=== PATIENT | female | born 1930 | race Caucasian/White ===

== ENCOUNTER 2018-03-10 14:02 | Inpatient (IN) | payer MEDICARE, BC ==
[2018-03-10] MEDS ORDERED: ACETAMINOPHEN TAB 325 MG TAB PO STA (14:08)
[2018-03-10 14:37] LABS: Appearance,Urine Clear (Clear); Bilirubin,Urine Negative (Negative); Blood,Urine Negative (Negative); Color,Urine Yellow; Glucose,Urine (UA) 4+ (Negative); Ketones,Urine Trace (Negative); Leukocyte Esterase,Urine Negative (Negative); Nitrite,Urine Negative (Negative); PH, Urine 6.5 (5.0-8.0); Protein,Urine Trace (Negative); Specific Gravity,Urine 1.016 (1.001-1.035); Urobilinogen,Urine <2.0 mg/dL (<2.0)
[2018-03-10 14:38] LABS: Basophils % (A) 0 %; Eosinophils % (A) 0 %; HCT 33.2 % (34.0-46.0); HGB 10.7 gm/dL (11.4-16.0); Lymphocytes # (A) 0.8 k/uL (1.0-4.8); Lymphocytes % (A) 6 %; MCHC 32.3 g/dL (31.0-37.0); MCV 99.1 fL (80.0-100.0); Macrocytosis Slight; Mean Platelet Volume 7.3; Monocytes # (A) 0.8 k/uL (0-1.0); Monocytes % (A) 6 %; Neutrophils % (A) 87 %; Platelet Count 182 k/uL (150-450); RBC 3.35 m/uL (3.80-5.40); RDW 15.2 % (11.5-15.5); WBC 12.7 k/uL (3.8-10.6)
[2018-03-10 14:46] LABS: Partial Thromboplastin Time 22.7 sec (22.0-30.0); Prothrombin Time 9.6 sec (9.0-12.0)
[2018-03-10 14:56] LABS: Albumin 3.3 g/dL (3.5-5.0); Calcium 10.2 mg/dL (8.4-10.2); Potassium 5.3 mmol/L (3.5-5.1); Total Bilirubin 1.8 mg/dL (0.2-1.3); Total Protein 6.2 g/dL (6.3-8.2)
[2018-03-10] MEDS: cefTRIAXone IN SWFI 2,000 MG/20 ML SYRINGE IVP STA ×2 (14:58→18:44)
[2018-03-10] MEDS: SODIUM CHLORIDE 0.9% 500 ML IV SCH (14:59)
--- NOTE | 2018-03-10 16:08 | CT ---
EXAMINATION TYPE: CT abdomen pelvis w con DATE OF EXAM: 03/10/2018 COMPARISON: NONE HISTORY: Occasional vomiting for [address] DLP: 387 mGycm Automated exposure control for dose reduction was used. CONTRAST: CT scan of the abdomen pelvis is performed with IV Contrast, patient injected with 80 mL of Isovue 30 0. FINDINGS- LUNG BASES-subsegmental consolidation at both lung bases with small right pleural effusion.. There is a 7 mm left pulmonary nodule on image #8. LIVER/GB-there is intrahepatic biliary ductal dilation. The gallbladder is decompressed but there saloni ears to BE abnormal attenuation in the gallbladder fossa. This could be related to gallstone with acu te cholecystitis or gallbladder neoplasm would also be the differential diagnosis. Numerous gallstone s are also felt to be present. There appears to be dilation and thickening of the common bile duct to the level the pancreatic head.. PANCREAS- No gross abnormality is seen. SPLEEN- No gross abnormality is seen. ADRENALS- No gross abnormality is seen. KIDNEYS/BLADDER-severe right hydronephrosis and proximal hydroureter. No definite calcification. Ther e is soft tissue fullness in this region although this could be related to residual ovary given there is a hysterectomy, although, a mass or adenopathy would be the differential diagnosis. 2 punctate le ss than 5 mm calcifications are seen on image 33 which may been the course of the ureter and represen t ureteral obstructive calculi. Simple appearing left renal cysts incidentally noted.. BOWEL-bowel gas pattern nonspecific. There is evidence of diverticulosis of the colon.. LYMPH NODES- No greater than 1cm abdominal or pelvic lymph nodes are appreciated. OSSEOUS STRUCTURES-hypertrophic and degenerative changes of the spine are noted. There is extensive p ostsurgical change involving the left hip. This limits assessment of the pelvis secondary to artifact .. OTHER- findings suggest splenic varices. Atherosclerotic change of aorta with no evidence of aneurys m. No free fluid or free air. Small hiatal hernia noted. IMPRESSION- 1. Marked abnormal appearance of the gallbladder fossa with suspected decompressed gallbladder contai korin numerous gallstones. There does appear to be inflammation in the region of the gallbladder and t he duodenum correlate for cholecystitis versus duodenitis. Favor acute cholecystitis. Intra and extra hepatic ductal dilation noted 2. Severe right-sided hydronephrosis and proximal hydroureter. There appears to be soft tissue densit y in the pelvis where the ureter appears to taper measuring 2 cm. There also appears to be at least 2 calcifications on coronal image 33 which potentially could be within the ureter although this is obs cured by the soft tissue attenuation. Therefore, obstructive ureteral calculus is not excluded. Area of adenopathy or mass is in the differential diagnosis correlate clinically. 3. Splenic varices 4. Small right pleural effusion #5 there is a 7 mm left lower lobe pulmonary nodule.
[2018-03-10] MEDS ORDERED: MORPHINE SULFATE 2 MG/ML SYRINGE IV PRN (18:19)
[2018-03-10] MEDS ORDERED: NALOXONE 0.4 MG/ML 1 ML VIAL IV PRN (18:19)
[2018-03-10] MEDS ORDERED: ONDANSETRON 4 MG/2 ML VIAL IVP PRN (18:19)
[2018-03-10] MEDS ORDERED: ACETAMINOPHEN TAB 325 MG TAB PO PRN (18:19)
--- NOTE | 2018-03-10 18:19 | ED ---
Weakness HPI - General Chief complaint: Weakness Stated complaint: WEAKNESS Time Seen by Provider: 03/10/18 14:03 Source: patient Mode of arrival: EMS Limitations: no limitations - History of Present Illness Initial comments: 87 years O female comes in with the elevated LFTs, she has no prior history of diabetes shortness wasn't 500 few days ago she is complaining about a fever and generalized weakness and just not feeling itchy denies any headaches no neck stiffness no chest pain or shortness of breath she has some discomfort in the abdomen no frequency urgency dysuria no symptoms of TIA or CVA - Related Data Home Medications Medication Instructions Recorded Confirmed Brimonidine Tartrate [Alphagan P 1 drops BOTH EYES BID@0900,1800 03/10/18 0.2% Ophth Soln] Glimepiride [Amaryl] 1 mg PO AC-BID 03/10/18 03/10/18 Latanoprost [Xalatan 0.005%] 1 drop BOTH EYES HS@2200 03/10/18 03/10/18 Methotrexate Sodium [Methotrexate] 10 mg PO DELGADO MDD SEE COMMENTS 03/10/18 Timolol 0.5% Ophth Soln [Timoptic 1 drop BOTH EYES BID@0900,1800 03/10/18 0.5% Ophth Soln] Allergies Allergy/AdvReac Type Severity Reaction Status Date / Time No Known Allergies Allergy Verified 03/10/18 15:15 Review of Systems ROS Statement: Those systems with pertinent positive or pertinent negative responses have been documented in the HPI. ROS Other: All systems not noted in ROS Statement are negative. Past Medical History Past Medical History: Rheumatoid Arthritis (RA) History of Any Multi-Drug Resistant Organisms: None Reported Past Surgical History: Unable to Obtain Past Psychological History: No Psychological Hx Reported Past Alcohol Use History: None Reported Past Drug Use History: None Reported General Exam - General Exam Comments Initial Comments: General: The patient is awake and alert, in no distress, and does not appear acutely ill. Skin: Skin is warm and dry and no rashes or lesions are noted. Eye: Pupils are equal, round and reactive to light, extra-ocular movements are intact; there is normal conjunctiva bilaterally. Ears, nose, mouth and throat: There are moist mucous membranes and no oral lesions. Neck: The neck is supple, there is no tenderness or JVD. Cardiovascular: There is a regular rate and rhythm. No murmur, rub or gallop is appreciated. Respiratory: To auscultation bilateral, no wheezing no rhonchi no distress respiratory boyle noticed Gastrointestinal: Under in the epigastric area and right upper quadrant and left upper quadrant area positive bowel sounds no guarding no rebounds. Back: There is no tenderness to palpation in the midline. There is no obvious deformity. Musculoskeletal: Normal ROM, no tenderness, There is no pedal edema. There is no calf tenderness or swelling. No cords were appreciated. Neurological: CN II-XII intact, Cranial nerves III through XII are intact. There are no obvious motor or sensory deficits. Coordination appears grossly intact. Speech is normal. Psychiatric: Cooperative, appropriate mood & affect, normal judgment. Limitations: no limitations Course Vital Signs 03/10/18 03/10/18 03/10/18 14:04 15:05 16:03 Temperature 100.6 F H 100.7 F H Pulse Rate 68 69 72 Respiratory 16 16 16 Rate Blood Pressure 146/61 130/60 131/61 O2 Sat by Pulse 96 97 97 Oximetry 03/10/18 17:34 Temperature Pulse Rate 76 Respiratory 16 Rate Blood Pressure 130/58 O2 Sat by Pulse 96 Oximetry Plan reassessment I noticed that CT abdomen findings are consistent with acute cholecystitis also noticed right-sided severe hydronephrosis CT suspecting obstruction in the distal right ureter I noticed a week total bili is 1.8 white count 12.7 transaminases and alk phosphatase are all elevated troponin is negative urine is negative sugar is 370 EKG Findings - EKG Comments: EKG Findings:: EKG is a sinus rhythm with a ventricular rate of 67 SC interval is 142 QRS duration is 84 QT/QTc is 374/395 review of this EKG does not reveal any ST elevation or ST depression Medical Decision Making - Lab Data Result diagrams: 03/10/18 14:22 03/10/18 14:22 Lab Results 03/10/18 03/10/18 03/10/18 Range/Units 14:22 14:22 14:22 WBC 12.7 H (3.8-10.6) k/uL RBC 3.35 L (3.80-5.40) m/uL Hgb 10.7 L (11.4-16.0) gm/dL Hct 33.2 L (34.0-46.0) % MCV 99.1 (80.0-100.0) fL MCH 32.0 (25.0-35.0) pg MCHC 32.3 (31.0-37.0) g/dL RDW 15.2 (11.5-15.5) % Plt Count 182 (150-450) k/uL Neutrophils % 87 % Lymphocytes % 6 % Monocytes % 6 % Eosinophils % 0 % Basophils % 0 % Neutrophils # 11.0 H (1.3-7.7) k/uL Lymphocytes # 0.8 L (1.0-4.8) k/uL Monocytes # 0.8 (0-1.0) k/uL Eosinophils # 0.0 (0-0.7) k/uL Basophils # 0.0 (0-0.2) k/uL Macrocytosis Slight PT (9.0-12.0) sec INR (<1.2) APTT (22.0-30.0) sec Sodium 133 L (137-145) mmol/L Potassium 5.3 H (3.5-5.1) mmol/L Chloride 98 (98-107) mmol/L Carbon Dioxide 26 (22-30) mmol/L Anion Gap 9 mmol/L BUN 25 H (7-17) mg/dL Creatinine 0.90 (0.52-1.04) mg/dL Est GFR (CKD-EPI)AfAm 66 (>60 ml/min/1.73 sqM) Est GFR (CKD-EPI)NonAf 58 (>60 ml/min/1.73 sqM) Glucose 370 H (74-99) mg/dL Plasma Lactic Acid Wily 1.1 (0.7-2.0) mmol/L Calcium 10.2 (8.4-10.2) mg/dL Total Bilirubin 1.8 H (0.2-1.3) mg/dL AST 159 H (14-36) U/L ALT 236 H (9-52) U/L Alkaline Phosphatase 959 H (38-126) U/L Troponin I (0.000-0.034) ng/mL Total Protein 6.2 L (6.3-8.2) g/dL Albumin 3.3 L (3.5-5.0) g/dL Urine Color Urine Appearance (Clear) Urine pH (5.0-8.0) Ur Specific [place] (1.001-1.035) Urine Protein (Negative) Urine Glucose (UA) (Negative) Urine Ketones (Negative) Urine Blood (Negative) Urine Nitrite (Negative) Urine Bilirubin (Negative) Urine Urobilinogen (<2.0) mg/dL Ur Leukocyte Esterase (Negative) 03/10/18 03/10/18 03/10/18 Range/Units 14:22 14:22 14:22 WBC (3.8-10.6) k/uL RBC (3.80-5.40) m/uL Hgb (11.4-16.0) gm/dL Hct (34.0-46.0) % MCV (80.0-100.0) fL MCH (25.0-35.0) pg MCHC (31.0-37.0) g/dL RDW (11.5-15.5) % Plt Count (150-450) k/uL Neutrophils % % Lymphocytes % % Monocytes % % Eosinophils % % Basophils % % Neutrophils # (1.3-7.7) k/uL Lymphocytes # (1.0-4.8) k/uL Monocytes # (0-1.0) k/uL Eosinophils # (0-0.7) k/uL Basophils # (0-0.2) k/uL Macrocytosis PT 9.6 (9.0-12.0) sec INR 1.0 (<1.2) APTT 22.7 (22.0-30.0) sec Sodium (137-145) mmol/L Potassium (3.5-5.1) mmol/L Chloride (98-107) mmol/L Carbon Dioxide (22-30) mmol/L Anion Gap mmol/L BUN (7-17) mg/dL Creatinine (0.52-1.04) mg/dL Est GFR (CKD-EPI)AfAm (>60 ml/min/1.73 sqM) Est GFR (CKD-EPI)NonAf (>60 ml/min/1.73 sqM) Glucose (74-99) mg/dL Plasma Lactic Acid Wily (0.7-2.0) mmol/L Calcium (8.4-10.2) mg/dL Total Bilirubin (0.2-1.3) mg/dL AST (14-36) U/L ALT (9-52) U/L Alkaline Phosphatase (38-126) U/L Troponin I 0.018 (0.000-0.034) ng/mL Total Protein (6.3-8.2) g/dL Albumin (3.5-5.0) g/dL Urine Color Yellow Urine Appearance Clear (Clear) Urine pH 6.5 (5.0-8.0) Ur Specific [place] 1.016 (1.001-1.035) Urine Protein Trace H (Negative) Urine Glucose (UA) 4+ H (Negative) Urine Ketones Trace H (Negative) Urine Blood Negative (Negative) Urine Nitrite Negative (Negative) Urine Bilirubin Negative (Negative) Urine Urobilinogen <2.0 (<2.0) mg/dL Ur Leukocyte Esterase Negative (Negative) Disposition Clinical Impression: Hyperglycemia, Hydronephrosis, Acute cholecystitis, Duodenitis Disposition: ADMITTED IP TO THIS [facility] Condition: Good Referrals: Nigel Luna MD [Primary Care Provider] - 1-2 days
[2018-03-10] MEDS ORDERED: LEVOFLOXACIN 500MG-D5W PMX 500 MG in DEXTROSE/WATER 1 100ML.BAG IVPB STA (18:25)
[2018-03-10] MEDS ORDERED: cefTRIAXone 2,000 MG in SODIUM CHLORIDE 0.9% 100 ML IVPB STA (18:25)
[2018-03-10] MEDS ORDERED: cefTRIAXone IN SWFI 2,000 MG/20 ML SYRINGE IVP STA (18:28)
[2018-03-10] MEDS ORDERED: INSULIN REGULAR 100 UNIT/ML VIAL SQ ONE (18:30)
[2018-03-10] MEDS: SODIUM CHLORIDE 0.9% 1,000 ML IV SCH (18:39)
[2018-03-10 18:52] LABS: Glucose,Whole Blood 312 mg/dL (75-99)
--- NOTE | 2018-03-10 22:28 | HP ---
HISTORY AND PHYSICAL DATE OF ADMISSION: 03/10/2018. CHIEF COMPLAINT: Cough, elevated blood sugars. HISTORY OF PRESENT ILLNESS: This 87-year-old female is admitted to the hospital after outpatient evaluation. The patient was seen in the office yesterday for elevated blood sugar. Routine labs were sent out. The patient's LFT and alkaline phosphatase and bilirubin were elevated. I called the patient's today and the daughter told me that the during the night, the patient had vomiting. She had not eaten and her blood sugars were running high. In view of this, she was recommended to come into the hospital. The patient was seen in the ER. The patient is pretty lethargic, but denies any symptoms. She denies any abdominal pain. Her abdomen is soft. The patient had a low-grade temperature of 100.7. The rest of the vital signs were stable. Also, her blood sugars were elevated at 370 with a BUN of 25, potassium of 5.3 and a CO2 of 133. The patient has a history of rheumatoid arthritis and has had impaired fasting blood sugars and sugars controlled on diet. The patient, however, has elevated sugar for the past 2 days. PAST MEDICAL HISTORY: History of rheumatoid arthritis, osteoporosis and a previous bilateral hip ORIF. The patient has no other history of hypertension, lung disease, liver disease, kidney disease, ulcers, TB, hepatitis. No history of any rheumatic fever, myocardial infarction or CVA. PAST SURGICAL HISTORY: Significant for bilateral hip surgeries. PERSONAL HISTORY: Never smoker. Alcohol: None. ALLERGIES: None known. MEDICATIONS AT HOME: Include: 1. Eye drops, timolol 0.5% to both eyes. 2. Methotrexate 10 mg every Monday. 3. Xalatan 0.005% 1 drop both eyes. 4. Amaryl 1 mg 1 b.i.d. started 2 days ago. 5. Alphagan 0.2% 1 drop both eyes b.i.d. SOCIAL HISTORY: The patient is , lives with her daughter. FAMILY MEDICAL HISTORY: The patient's daughter does have a history of CA of the breast in remission. REVIEW OF SYSTEMS: NEURO: Denies any headaches, dizziness. No double vision, blurred vision. PSYCH: Lethargic. CARDIAC: No chest pain, angina, palpitations. RESPIRATORY: Denies shortness of breath, cough. GI: Episode of vomiting last night. No appetite. No abdominal pain. No diarrhea, constipation. : No reported symptoms. EXTREMITIES: Chronic arthritic pain. The patient has rheumatoid arthritis. The patient also a few days ago had her right knee buckled. That happens occasionally. CONSTITUTIONAL: No reported fever, chills. SKIN: No breakdown. PHYSICAL EXAMINATION: Pleasant elderly female, lethargic. Vital signs reveal a temperature of 100.7, pulse 72, respirations 16, blood pressure 131/61, pulse ox 97% on room air. HEENT: Normocephalic. Neck supple. Decreased range of motion. Conjunctivae pink. Oral cavity dry. Neck reveals no carotid bruits or thyromegaly. CHEST: Decreased air flow. CARDIAC: Distant heart sounds, S1, S2 with no gallop. Systolic murmur 2/6 left sternal border. ABDOMEN: Soft. No tenderness. The patient has a palpable liver margin which is irregular, firm. Bowel sounds are active. Extremities reveal trace edema. Neurologically, arousable. Moves both upper and lower extremities adequately. LABORATORY ASSESSMENT: White count 12.7, hemoglobin 10.7, platelets 182. Sodium 133, potassium 5.3, chloride 98, CO2 of 26, BUN 25, creatinine 0.9, glucose 370. Total bilirubin 1.8, AST 159, ALT 236, alkaline phosphatase 959. Albumin 3.3. Urine: 4+ glucose. CT scan of the abdomen suggests hepatic portal area significant scarring. Cholelithiasis and chronic cholecystitis, also possible duodenitis. Pancreas looks okay. The hepatic biliary ducts are dilated, also right kidney hydronephrotic. ASSESSMENT: 1. Hyperglycemia. 2. Acute on chronic cholecystitis. 3. Duodenitis, cannot rule out a duodenal lesion. 4. Right hydronephrosis. 5. Chronic rheumatoid arthritis. 6. Anemia of chronic disease. PLAN: The patient is admitted to the hospital. Will ask GI physicians to take a look at the patient, possibly upper endoscopy/ERCP. The patient meanwhile will be on Rocephin, pain control, hydration. Blood sugars being controlled with insulin. Subsequently, once this problem is resolved, will ask Urology to check on her right hydronephrosis. Prognosis remains guarded. MMODL / IJN: [id number] /
[2018-03-10] MEDS: INSULIN ASPART 100 UNIT/ML 1 ML 10 ML VIAL SQ SCH (22:47)
[2018-03-10] MEDS: LATANOPROST 0.005% OPHTH DROPS 2.5 ML BTL BOTH EYES SCH (22:47)
[2018-03-10 22:59] LABS: Glucose,Whole Blood 139 mg/dL (75-99)
[2018-03-10] MEDS: HEPARIN SODIUM,PORCINE 5,000 UNIT/ML 1 ML VIAL SQ SCH (23:38)
[2018-03-11 00:12] LABS: Amylase 121 U/L (30-110); Lipase 394 U/L (23-300)
[2018-03-11 07:21] LABS: Glucose,Whole Blood 86 mg/dL (75-99)
[2018-03-11] MEDS: INSULIN ASPART 100 UNIT/ML 1 ML 10 ML VIAL SQ SCH ×4 (07:28→21:33)
[2018-03-11] MEDS ORDERED: GLIMEPIRIDE 1 MG TAB PO SCH (07:30)
[2018-03-11 08:02] LABS: Anisocytosis Slight; Basophils % (A) 0 %; Eosinophils # (A) 0.2 k/uL (0-0.7); Eosinophils % (A) 1 %; HCT 32.3 % (34.0-46.0); HGB 10.1 gm/dL (11.4-16.0); Lymphocytes # (A) 1.2 k/uL (1.0-4.8); Lymphocytes % (A) 11 %; MCH 31.5 pg (25.0-35.0); MCHC 31.3 g/dL (31.0-37.0); MCV 100.4 fL (80.0-100.0); Macrocytosis Slight; Mean Platelet Volume 7.2; Monocytes # (A) 0.8 k/uL (0-1.0); Monocytes % (A) 7 %; Neutrophils # (A) 8.9 k/uL (1.3-7.7); Neutrophils % (A) 79 %; Platelet Count 198 k/uL (150-450); RBC 3.22 m/uL (3.80-5.40); RDW 16.1 % (11.5-15.5); WBC 11.2 k/uL (3.8-10.6)
[2018-03-11] MEDS: HEPARIN SODIUM,PORCINE 5,000 UNIT/ML 1 ML VIAL SQ SCH ×3 (08:02→23:03)
[2018-03-11] MEDS: TIMOLOL 0.5% OPHTH DROPS 5 ML BTL BOTH EYES SCH ×2 (08:02→18:13)
[2018-03-11] MEDS: PANTOPRAZOLE 40 MG/10 ML VIAL IV SCH (08:02)
[2018-03-11] MEDS: BRIMONIDINE TARTRATE 0.2% DROPS 5 ML BTL BOTH EYES SCH ×2 (08:02→18:13)
[2018-03-11] MEDS: SODIUM CHLORIDE 0.9% 1,000 ML IV SCH ×2 (08:03→18:12)
[2018-03-11 08:06] LABS: Albumin 2.9 g/dL (3.5-5.0); Calcium 9.3 mg/dL (8.4-10.2); Potassium 4.3 mmol/L (3.5-5.1); Total Bilirubin 1.3 mg/dL (0.2-1.3); Total Protein 5.7 g/dL (6.3-8.2)
--- NOTE | 2018-03-11 08:33 | US ---
EXAMINATION TYPE: US abdomen limited DATE OF EXAM: 03/11/2018 COMPARISON: CT 03/10/2018 CLINICAL HISTORY: Elevated liver enzymes. EXAM MEASUREMENTS: Liver Length: 12.2 cm Gallbladder Wall: 0.4 cm CBD: 0.6 cm Right Kidney: 10.4 x 5.0 x 5.0 cm Pancreas: Obscured by bowel gas, visualized portions show no abnormality Liver: Intrahepatic ductal dilation Gallbladder: Multiple probable stones visualized. Wall appears thickened Evidence for sonographic Thompson's sign: No CBD: Measuring upper limits of normal. Distal end obscured by bowel gas Right Kidney: Moderate Hydronephrosis - as seen on the 03/10/2018 CT. Difficult exam due to overlying bowel gas. Patient unable to take a deep breath in and hold IMPRESSION: CHOLELITHIASIS WITH GALLBLADDER WALL THICKENING BUT WITHOUT SONOGRAPHIC THOMPSON'S SIGN; CONSTELLATION OF FINDINGS CONSISTENT WITH CHOLECYSTITIS.
[2018-03-11] MEDS ORDERED: METHOTREXATE SODIUM 2.5 MG TAB PO SCH (09:00)
--- NOTE | 2018-03-11 11:17 | CONS ---
CONSULTATION DATE OF SERVICE: March 11, 2018. REQUESTING PHYSICIAN: Dr. Luna. REASON FOR CONSULTATION: Abdominal pain and abnormal LFTs and jaundice. HISTORY OF PRESENT ILLNESS: The patient is an 87-year-old white female who was admitted to the hospital by Dr. Luna after she was seen in the office for abnormal LFTs. She was noted to have a bilirubin that was 2.5, alkaline phosphatase in the range of 1000. She was hence admitted to the hospital for further evaluation. The patient states that she has been complaining of some vague abdominal discomfort, occasional nausea, vomiting, and blood sugars have been running somewhat high in the last few days. Following admission to the hospital, she had repeat labs which showed improvement in the bilirubin up to 1.8 and alkaline phosphatase was down to . She did have a CT of the abdomen and pelvis done that showed evidence of mild intra and extrahepatic biliary ductal dilation, contracted gallbladder with multiple gallstones and also there was some thickening in the duodenum noted. Also, she was noted to have severe right-sided hydronephrosis. She also had ultrasound of the abdomen done that showed gallstones but no evidence of CBD dilation. The patient in the meantime is doing well. She denies any new symptoms. PAST MEDICAL HISTORY: Significant for hypertension, rheumatoid arthritis, on methotrexate, osteoporosis. MEDICATIONS: At home include eyedrops, Xalatan, methotrexate, Amaryl and Alphagan. ALLERGIES: None. SOCIAL HISTORY: No smoking. No alcohol use. PAST SURGICAL HISTORY: Bilateral hip surgery. REVIEW OF SYSTEMS: Cardiopulmonary: No chest pain, shortness of breath. Genitourinary: No dysuria or hematuria. Musculoskeletal unremarkable. Skin unremarkable. Endocrine unremarkable. Psychiatric unremarkable. Neurology unremarkable. ENT vision unremarkable. Constitutional: No recent weight loss. No fever, chills, night sweats. PHYSICAL EXAMINATION: She appears comfortable. No apparent distress. Vital signs are stable. Blood pressure is 172/90, pulse rate 84, temperature 98.3. HEENT examination unremarkable. Conjunctivae pink. Sclerae anicteric. Oral cavity no lesions. Neck no jugular venous distention or lymph node enlargement. Chest was clear to auscultation. HEART: Regular rate and rhythm. ABDOMEN: Soft. Bowel sounds are positive. No organomegaly. Extremities: No pedal edema. Skin: No rashes. Neuro: She is alert and oriented x3. No focal deficits. LAB: WBC 12.7, hemoglobin 10.7, platelets are normal. PT/INR is within normal limits. T- bilirubin was 1.8. Today it is 1.3. AST 159, ALT 236, alkaline phosphatase 959, amylase 121, lipase 394. Today, amylase and lipase are normal. Bilirubin is down to 1.3. IMPRESSION: This is a lady who presents with vague abdominal symptoms and abnormal LFTs with significant elevation of alkaline phosphatase almost in the range of 1000 with elevated LFTs and some jaundice. CT showed evidence of mild intra and extrahepatic biliary ductal dilation, thickening of the duodenum and thickening of the distal common bile duct as well as contracted gallbladder with multiple gallstones and possibility of gallbladder pathology could not be excluded. At this time the etiology of elevated LFTs could be related to choledocholithiasis, but other inflammatory conditions or malignancy cannot be excluded given the clinical picture. RECOMMENDATIONS: I had a lengthy discussion with the patient and at this time we will proceed with an ERCP. She understands the risks, benefits, and complications of the procedure. Continue with current antibiotics and we will follow the patient closely during her hospital stay. Thank you for this consultation. MMODL / IJN: [id number] /
[2018-03-11 11:39] LABS: Glucose,Whole Blood 214 mg/dL (75-99)
--- NOTE | 2018-03-11 12:53 | P.GSCN ---
History of Present Illness Consult date: 03/11/18 Reason for Consult: Gallstone pancreatitis History of present illness: Patient presents to the hospital because of abnormal lab values. She was found to have elevated liver enzymes and alkaline phosphatase. CAT scan shows numerous gallstones with some inflammatory changes at the angelo hepatis. Stomach and duodenum appear somewhat abnormal in appearance. CBD was dilated per CAT scan but not on ultrasound. She denies pain. Denies nausea vomiting. Review of Systems The patient denies any acute changes in vision or hearing, no dysphagia or odynophagia, no chest pain or shortness of breath, no dysuria or hematuria, no headache, no runny nose, no rectal bleeding or melena, no unexplained weight loss Past Medical History Past Medical History: Rheumatoid Arthritis (RA) History of Any Multi-Drug Resistant Organisms: None Reported Past Surgical History: Joint Replacement Additional Past Surgical History / Comment(s): L hip Past Psychological History: No Psychological Hx Reported Smoking Status: Never smoker Past Alcohol Use History: None Reported Past Drug Use History: None Reported - Past Family History Mother Family Medical History: Diabetes Mellitus Medications and Allergies Home Medications Medication Instructions Recorded Confirmed Type Brimonidine Tartrate [Alphagan P 1 drops BOTH EYES BID@0900,1800 03/10/18 History 0.2% Ophth Soln] Glimepiride [Amaryl] 1 mg PO AC-BID 03/10/18 03/10/18 History Latanoprost [Xalatan 0.005%] 1 drop BOTH EYES HS@2200 03/10/18 03/10/18 History Methotrexate Sodium [Methotrexate] 10 mg PO DELGADO MDD SEE COMMENTS 03/10/18 History Timolol 0.5% Ophth Soln [Timoptic 1 drop BOTH EYES BID@0900,1800 03/10/18 History 0.5% Ophth Soln] Allergies Allergy/AdvReac Type Severity Reaction Status Date / Time No Known Allergies Allergy Verified 03/10/18 15:15 Surgical - Exam Vital Signs Temp Pulse Resp BP Pulse Ox 100.6 F H 68 16 146/61 96 03/10/18 14:04 03/10/18 14:04 03/10/18 14:04 03/10/18 14:04 03/10/18 14:04 Physical exam: General: Well-developed, well-nourished HEENT: Normocephalic, sclerae slightly icteric Abdomen: nondistended, some fullness right upper quadrant with mild tenderness Extremities: No edema Neuro: Alert and oriented Results - Labs 03/11/18 07:24 03/11/18 07:24 Abnormal Lab Results - Last 24 Hours (Table) 03/10/18 03/10/18 03/10/18 Range/Units 14:22 14:22 14:22 WBC 12.7 H (3.8-10.6) k/uL RBC 3.35 L (3.80-5.40) m/uL Hgb 10.7 L (11.4-16.0) gm/dL Hct 33.2 L (34.0-46.0) % MCV (80.0-100.0) fL RDW (11.5-15.5) % Neutrophils # 11.0 H (1.3-7.7) k/uL Lymphocytes # 0.8 L (1.0-4.8) k/uL Sodium 133 L (137-145) mmol/L Potassium 5.3 H (3.5-5.1) mmol/L BUN 25 H (7-17) mg/dL Glucose 370 H (74-99) mg/dL POC Glucose (mg/dL) (75-99) mg/dL Total Bilirubin 1.8 H (0.2-1.3) mg/dL AST 159 H (14-36) U/L ALT 236 H (9-52) U/L Alkaline Phosphatase 959 H (38-126) U/L Total Protein 6.2 L (6.3-8.2) g/dL Albumin 3.3 L (3.5-5.0) g/dL Amylase (30-110) U/L Lipase (23-300) U/L Urine Protein Trace H (Negative) Urine Glucose (UA) 4+ H (Negative) Urine Ketones Trace H (Negative) 03/10/18 03/10/18 03/10/18 Range/Units 14:22 18:46 22:35 WBC (3.8-10.6) k/uL RBC (3.80-5.40) m/uL Hgb (11.4-16.0) gm/dL Hct (34.0-46.0) % MCV (80.0-100.0) fL RDW (11.5-15.5) % Neutrophils # (1.3-7.7) k/uL Lymphocytes # (1.0-4.8) k/uL Sodium (137-145) mmol/L Potassium (3.5-5.1) mmol/L BUN (7-17) mg/dL Glucose (74-99) mg/dL POC Glucose (mg/dL) 312 H 139 H (75-99) mg/dL Total Bilirubin (0.2-1.3) mg/dL AST (14-36) U/L ALT (9-52) U/L Alkaline Phosphatase (38-126) U/L Total Protein (6.3-8.2) g/dL Albumin (3.5-5.0) g/dL Amylase 121 H (30-110) U/L Lipase 394 H (23-300) U/L Urine Protein (Negative) Urine Glucose (UA) (Negative) Urine Ketones (Negative) 03/11/18 03/11/18 03/11/18 Range/Units 07:24 07:24 11:31 WBC 11.2 H (3.8-10.6) k/uL RBC 3.22 L (3.80-5.40) m/uL Hgb 10.1 L (11.4-16.0) gm/dL Hct 32.3 L (34.0-46.0) % MCV 100.4 H (80.0-100.0) fL RDW 16.1 H (11.5-15.5) % Neutrophils # 8.9 H (1.3-7.7) k/uL Lymphocytes # (1.0-4.8) k/uL Sodium (137-145) mmol/L Potassium (3.5-5.1) mmol/L BUN 19 H (7-17) mg/dL Glucose (74-99) mg/dL POC Glucose (mg/dL) 214 H (75-99) mg/dL Total Bilirubin (0.2-1.3) mg/dL AST 76 H (14-36) U/L ALT 165 H (9-52) U/L Alkaline Phosphatase 775 H (38-126) U/L Total Protein 5.7 L (6.3-8.2) g/dL Albumin 2.9 L (3.5-5.0) g/dL Amylase (30-110) U/L Lipase (23-300) U/L Urine Protein (Negative) Urine Glucose (UA) (Negative) Urine Ketones (Negative) Microbiology - Last 24 Hours (Table) 03/10/18 14:22 Urine Culture - Preliminary Urine,Catheterized Diabetes panel 03/10/18 03/11/18 Range/Units 14:22 07:24 Sodium 133 L 139 (137-145) mmol/L Potassium 5.3 H 4.3 (3.5-5.1) mmol/L Chloride 98 106 (98-107) mmol/L Carbon Dioxide 26 23 (22-30) mmol/L BUN 25 H 19 H (7-17) mg/dL Creatinine 0.90 0.83 (0.52-1.04) mg/dL Glucose 370 H 81 (74-99) mg/dL Calcium 10.2 9.3 (8.4-10.2) mg/dL AST 159 H 76 H (14-36) U/L ALT 236 H 165 H (9-52) U/L Alkaline Phosphatase 959 H 775 H (38-126) U/L Total Protein 6.2 L 5.7 L (6.3-8.2) g/dL Albumin 3.3 L 2.9 L (3.5-5.0) g/dL Calcium panel 03/10/18 03/11/18 Range/Units 14:22 07:24 Calcium 10.2 9.3 (8.4-10.2) mg/dL Albumin 3.3 L 2.9 L (3.5-5.0) g/dL Pituitary panel 03/10/18 03/11/18 Range/Units 14:22 07:24 Sodium 133 L 139 (137-145) mmol/L Potassium 5.3 H 4.3 (3.5-5.1) mmol/L Chloride 98 106 (98-107) mmol/L Carbon Dioxide 26 23 (22-30) mmol/L BUN 25 H 19 H (7-17) mg/dL Creatinine 0.90 0.83 (0.52-1.04) mg/dL Glucose 370 H 81 (74-99) mg/dL Calcium 10.2 9.3 (8.4-10.2) mg/dL Adrenal panel 03/10/18 03/11/18 Range/Units 14:22 07:24 Sodium 133 L 139 (137-145) mmol/L Potassium 5.3 H 4.3 (3.5-5.1) mmol/L Chloride 98 106 (98-107) mmol/L Carbon Dioxide 26 23 (22-30) mmol/L BUN 25 H 19 H (7-17) mg/dL Creatinine 0.90 0.83 (0.52-1.04) mg/dL Glucose 370 H 81 (74-99) mg/dL Calcium 10.2 9.3 (8.4-10.2) mg/dL Total Bilirubin 1.8 H 1.3 (0.2-1.3) mg/dL AST 159 H 76 H (14-36) U/L ALT 236 H 165 H (9-52) U/L Alkaline Phosphatase 959 H 775 H (38-126) U/L Total Protein 6.2 L 5.7 L (6.3-8.2) g/dL Albumin 3.3 L 2.9 L (3.5-5.0) g/dL Assessment and Plan (1) Gallstone pancreatitis Narrative/Plan: Appreciate GI evaluation. Await EGD/ERCP. Patient is asymptomatic currently. Concern regarding atypical malignancy persists. Further recommendations will follow. Current Visit: Yes Status: Acute Code(s): K85.10 - BILIARY ACUTE PANCREATITIS WITHOUT NECROSIS OR INFECTION SNOMED Code(s): 69907104
--- NOTE | 2018-03-11 12:56 | PN ---
PROGRESS NOTE ATTENDING PHYSICIAN: Dr. Nallely Luna. CHIEF COMPLAINT: Re-evaluation. His 87-year-old female was admitted to the hospital with elevated blood sugars and an episode of vomiting. The patient had mildly elevated liver enzymes. The patient's CT scan suggested cholecystitis, possible inflammation in the duodenum. She had marginally elevated lipase and amylase and elevated liver enzymes. The patient is feeling better today. She is more alert. Blood sugars are better controlled. REVIEW OF SYSTEMS: NEURO: Denies any headaches, dizziness. PSYCH: No anxiety. CARDIAC: Denies chest pain, angina, palpitation. RESPIRATORY: Denies shortness of breath, cough. GI: No nausea, vomiting, poor appetite. No abdominal pain. No diarrhea. No bowel movement. : No symptoms of dysuria, hematuria. EXTREMITIES: No pain. CONSTITUTIONAL: No fever or chills. PHYSICAL EXAMINATION: Elderly female at present, no distress. VITAL SIGNS: Temperature 97.8, pulse 79, respirations 16, blood pressure 132/66, pulse ox 96%. HEENT: Normocephalic. NECK: No JVD. Decreased range of motion. CHEST: Clear to auscultation with some dry crackles right base. CARDIAC: Distant heart sounds S1, S2 with no gallops. ABDOMEN: Soft. Bowel sounds present. No tenderness in the epigastric area or right upper quadrant. Bowel sounds active. EXTREMITIES: Reveal no edema. No tenderness. NEUROLOGICAL: Awake, alert, oriented, well-coordinated movements, both upper lower extremities. Decreased range of motion. LABORATORY ASSESSMENT: White count improved to 11.2, hemoglobin stable at 10.1, platelets 198. Electrolytes are normal. BUN down to 19, creatinine 0.83, bilirubin normal 1.3, AST normal 76, ALT normal 165. Alkaline phosphatase is down to 775. Lipase and amylase are normal. Blood sugar normal at 80 and 61. ASSESSMENT: 1. Acute cholecystitis. 2. Cholelithiasis. 3. Rule out duodenal pathology. 4. Right hydronephrosis. 5. Diabetes mellitus with improved blood sugars. 6. Anemia of chronic disease. 7. Rheumatoid arthritis. PLAN: Continue present medical regimen. Case discussed in person with Dr Ballard from [facility] and Dr. Chan. After discussion the plan is for the patient to undergo an ERCP tomorrow. The patient may require an open cholecystectomy. They will make that decision after the ERCP is done. Family not available at the bedside and will discuss with them later. MMODL / IJN: [id number] /
[2018-03-11 17:47] LABS: Glucose,Whole Blood 208 mg/dL (75-99)
[2018-03-11] MEDS: cefTRIAXone IN SWFI 1,000 MG/10 ML SYRINGE IVP SCH (18:12)
[2018-03-11 20:44] LABS: Glucose,Whole Blood 297 mg/dL (75-99)
[2018-03-11] MEDS: LATANOPROST 0.005% OPHTH DROPS 2.5 ML BTL BOTH EYES SCH (21:33)
[2018-03-12 06:57] LABS: Glucose,Whole Blood 154 mg/dL (75-99)
[2018-03-12 07:35] LABS: Albumin 2.7 g/dL (3.5-5.0); Potassium 4.4 mmol/L (3.5-5.1); Total Protein 5.2 g/dL (6.3-8.2)
[2018-03-12] MEDS: INSULIN ASPART 100 UNIT/ML 1 ML 10 ML VIAL SQ SCH ×4 (08:00→21:45)
[2018-03-12] MEDS: TIMOLOL 0.5% OPHTH DROPS 5 ML BTL BOTH EYES SCH ×2 (08:02→16:28)
[2018-03-12] MEDS: PANTOPRAZOLE 40 MG/10 ML VIAL IV SCH (08:02)
[2018-03-12] MEDS: BRIMONIDINE TARTRATE 0.2% DROPS 5 ML BTL BOTH EYES SCH ×2 (08:02→16:28)
[2018-03-12] MEDS: SODIUM CHLORIDE 0.9% 1,000 ML IV SCH (08:04)
[2018-03-12] MEDS: HEPARIN SODIUM,PORCINE 5,000 UNIT/ML 1 ML VIAL SQ SCH ×2 (08:06→16:27)
[2018-03-12] MEDS ORDERED: INDOMETHACIN 50MG SUPPOSITORY RECTAL ONE (11:00)
[2018-03-12] MEDS ORDERED: PROPOFOL 10 MG/ML 20 ML VIAL IV ONE (11:43)
--- NOTE | 2018-03-12 12:21 | P.PCN ---
Date of Procedure: 03/12/18 Procedure(s) Performed: Brief history: Patient is a 87 year-old pleasant lady scheduled for an ERCP as part of evaluation of weight abdominal pain and elevated serum transaminases/ alkaline phosphatase for the last [address] of the abdomen showed thickening of the duodenum multiple gallstones, contracted gallbladder and thickening of the distal common bile duct. Procedure performed: Attempted ERCP/EGD with biopsy Preoperative diagnoses: Abnormal LFTs and vague abdominal pain IV sedation per anesthesia: Procedure: After informed consent was obtained from the patient and after the risks benefits and complications including bleeding perforation and pancreatitis explained in detail the patient was brought into the endoscopy unit. The patient was placed in prone position and IV conscious sedation was administered by anesthesia under continuous monitoring. The Olympus side-viewing duodenoscope was then inserted into the mouth and esophagus intubated without any difficulty. The scope was gradually advanced into the stomach and duodenum. .Along the sweep there was a duodenal stricture that was removed advance the scope into the second portion of the duodenum. At this time the side viewing scope was removed and a forward-viewing pediatric scope was passed from the mouth and esophagus intubated without any difficulty and was gently advanced into the stomach and duodenum. There was a duodenal stricture identified along the duodenal sweep and with gentle medication and was able to advance scope into the second part of the duodenum. The scope at this time was gently withdrawn. The mucosa along the duodenal stricture appeared very inflamed and edematous but no masses identified. The second part of the duodenum appeared normal. At this time the scope was removed. The therapeutic duodenoscope was then inserted in mouth and esophagus reintubated without any difficulty and was gently advanced into the stomach and duodenal bulb. Despite multiple attempts I was not able to advance the scope further. At this time biopsies were done from the inflamed duodenal stricture. The scope was then withdrawn to the stomach adequately insufflated with air and upon careful examination because of the antrum body cardia and fundus appeared normal. Scope was then withdrawn into the esophagus. There was a small hiatal hernia and distal esophageal Schatzki's ring with some oozing identified. The rest of esophagus appeared normal and the patient off procedure well. Impression: 1. Attempted ERCP but not successful as the scope could not be advanced into the second portion of the duodenum because of duodenal stricture 2.. 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 Status post biopsies Recommendations: The findings of this examination were discussed with the patient as well as a family. At this time will await the biopsy results. Start her on clear liquid diet and advance as tolerated. Will discuss with Dr. Chan and Dr. Luna
[2018-03-12 13:33] LABS: Glucose,Whole Blood 247 mg/dL (75-99)
--- NOTE | 2018-03-12 14:22 | P.PN ---
<Lauryn Garciane M - Last Filed: 03/12/18 14:13> Subjective Progress Note Date: 03/12/18 87-year-old female being seen with 2 daughters at the bedside sitting up in bed. Patient just returned from having an attempted ERCP which was not successful scope could not be advanced secondary to a duodenal stricture noted biopsies were taken. The EGD did show the duodenal stricture along the duodenal sweep with thickened mucosal folds but no masses. Patient currently is denying any abdominal discomfort when questioning is tolerating a full liquid diet Objective - Vital Signs Vital signs: Vital Signs Temp 98.2 F 03/12/18 11:36 Pulse 80 03/12/18 11:36 Resp 16 03/12/18 11:36 BP 150/68 03/12/18 11:36 Pulse Ox 94 L 03/12/18 11:36 Intake & Output 03/11/18 03/12/18 03/12/18 18:59 06:59 18:59 Intake Total 560 1420 Balance 560 1420 Weight 51.71 kg Intake: Intake, IV Titration 560 1120 Amount Sodium Chloride 0.9% 1, 560 1120 000 ml @ 70 mls/hr IV . [id number] [facility] Rx#:[id number] Oral 300 Other: Voiding Method Toilet Toilet Toilet # Voids 2 2 - Exam Physical exam 87-year-old female sitting up in bed appears in no acute distress Lungs clear adequate air movement bilaterally on room air Heart S1-S2 audible regular Abdomen soft not distended mild tenderness to the right upper quadrant no nausea no vomiting tolerating full liquids Extremities no edema - Labs CBC & Chem 7: 03/11/18 07:24 03/12/18 07:00 Labs: Abnormal Lab Results - Last 24 Hours (Table) 03/11/18 03/11/18 03/12/18 Range/Units 17:42 20:12 06:52 Chloride (98-107) mmol/L Carbon Dioxide (22-30) mmol/L Glucose (74-99) mg/dL POC Glucose (mg/dL) 208 H 297 H 154 H (75-99) mg/dL AST (14-36) U/L ALT (9-52) U/L Alkaline Phosphatase (38-126) U/L Total Protein (6.3-8.2) g/dL Albumin (3.5-5.0) g/dL 03/12/18 03/12/18 Range/Units 07:00 13:31 Chloride 108 H (98-107) mmol/L Carbon Dioxide 21 L (22-30) mmol/L Glucose 146 H (74-99) mg/dL POC Glucose (mg/dL) 247 H (75-99) mg/dL AST 45 H (14-36) U/L ALT 120 H (9-52) U/L Alkaline Phosphatase 594 H (38-126) U/L Total Protein 5.2 L (6.3-8.2) g/dL Albumin 2.7 L (3.5-5.0) g/dL Microbiology - Last 24 Hours (Table) 03/10/18 14:22 Urine Culture - Final Urine,Catheterized 03/10/18 14:22 Blood Culture - Preliminary Blood No Growth after 24 hours Assessment and Plan Assessment: Impression Gallstone pancreatitis ERCP attempted not successful secondary to scope not being able to be advanced due to a duodenal stricture done on March 12 EGD done March 12 with biopsies showed duodenal stricture along the duodenal sweep with thickening mucosal folds but no mass CT abdomen showed thickening of the duodenum multiple gallstones and thickening of the distal common bile duct Plan Advance diet as tolerated Further recommendations per Dr. Chan with an update with family on plan of care Further recommendations will follow IV fluid for hydration The above impression and plan of care have been discussed and directed by signing physician. Janice Garcia nurse practitioner acting as scribe for signing physician. <Alexys Chan - Last Filed: 03/12/18 21:36> Objective - Vital Signs Vital signs: Vital Signs Temp 97.6 F 03/12/18 14:36 Pulse 80 03/12/18 16:00 Resp 16 03/12/18 16:00 BP 157/63 03/12/18 14:36 Pulse Ox 93 L 03/12/18 14:36 Intake & Output 03/12/18 03/12/18 03/13/18 06:59 18:59 06:59 Intake Total 1420 3540 480 Balance 1420 3540 480 Intake: Intake, IV Titration 1120 420 Amount Sodium Chloride 0.9% 1, 1120 420 000 ml @ 70 mls/hr IV . [id number] [facility] Rx#:[id number] Oral 300 3120 480 Other: Voiding Method Toilet Toilet # Voids 2 3 - Labs CBC & Chem 7: 03/11/18 07:24 03/12/18 07:00 Labs: Abnormal Lab Results - Last 24 Hours (Table) 03/12/18 03/12/18 03/12/18 Range/Units 06:52 07:00 13:31 Chloride 108 H (98-107) mmol/L Carbon Dioxide 21 L (22-30) mmol/L Glucose 146 H (74-99) mg/dL POC Glucose (mg/dL) 154 H 247 H (75-99) mg/dL AST 45 H (14-36) U/L ALT 120 H (9-52) U/L Alkaline Phosphatase 594 H (38-126) U/L Total Protein 5.2 L (6.3-8.2) g/dL Albumin 2.7 L (3.5-5.0) g/dL 03/12/18 03/12/18 Range/Units 17:18 20:26 Chloride (98-107) mmol/L Carbon Dioxide (22-30) mmol/L Glucose (74-99) mg/dL POC Glucose (mg/dL) 377 H 321 H (75-99) mg/dL AST (14-36) U/L ALT (9-52) U/L Alkaline Phosphatase (38-126) U/L Total Protein (6.3-8.2) g/dL Albumin (3.5-5.0) g/dL Microbiology - Last 24 Hours (Table) 03/10/18 14:22 Blood Culture - Preliminary Blood No Growth after 48 hours 03/10/18 14:22 Urine Culture - Final Urine,Catheterized Assessment and Plan Assessment: As above. Patient doing well without complaints of pain. ERCP unfortunately was unsuccessful because of a duodenal stricture. Her enzymes are improving. The scenario was discussed with the patient and also with Dr. Luna. At this time it is reasonable to recheck labs tomorrow morning and if we see continued improvement consider discharge home with outpatient MRCP. Patient remains high surgical risk. (1) Gallstone pancreatitis Current Visit: Yes Status: Acute Code(s): K85.10 - BILIARY ACUTE PANCREATITIS WITHOUT NECROSIS OR INFECTION SNOMED Code(s): 75757085
[2018-03-12] MEDS: cefTRIAXone IN SWFI 1,000 MG/10 ML SYRINGE IVP SCH (16:28)
[2018-03-12 17:20] LABS: Glucose,Whole Blood 377 mg/dL (75-99)
--- NOTE | 2018-03-12 19:27 | PN ---
PROGRESS NOTE ATTENDING PHYSICIAN: Dr. Nallely Luna. CHIEF COMPLAINT: Re-evaluation. HISTORY OF PRESENT ILLNESS: 87-year-old female was admitted to the hospital with mild jaundice and elevated liver enzymes and alkaline phosphatase. The patient's lipase is mildly elevated. The patient is improving. Her liver enzymes are coming down to normal. Bilirubin back to normal. The patient is looking better and feeling somewhat better. The patient denies any abdominal pain. No nausea, vomiting. Her appetite is still very poor. The patient's CT scan had suggested area on the duodenum and gallbladder area significantly inflamed, dilated biliary ducts. In view of this, the patient underwent EGD and attempted ERCP. However, the patient has a significant stricture of the duodenal area and the scope could not be passed. In view of this, some duodenal biopsies were taken. The patient is also followed by the surgeon. The patient's general condition is improving. REVIEW OF SYSTEMS: Neuro: Denies any headaches or dizziness. Psych: No anxiety. Cardiac: No chest pain, angina, palpitations. Respiratory: Denies shortness of breath, cough. GI: No nausea, vomiting, abdominal pain, diarrhea. : No symptoms of dysuria or hematuria. Extremities: Denies pain. Constitutional: No fever or chills. PHYSICAL EXAMINATION: Pleasant female in no distress. Vital signs reveals temperature 97.8, pulse 79, respirations 16, blood pressure 132/66, pulse ox 96% on room air. HEENT: Normocephalic. NECK: Decreased range of motion. CHEST: Clear to auscultation with mild generalized decreased air flow. CARDIAC: Distant heart sounds, S1-S2 with no gallop. Systolic murmur 2/6 left sternal border. ABDOMEN: Soft. Bowel sounds present. EXTREMITIES: Reveal trace edema. NEUROLOGICAL: Awake, alert, oriented, well-coordinated movements of both upper extremities. Decreased range of motion all joints due to rheumatoid arthritic changes. LAB ASSESSMENT: Electrolytes reveal sodium 137, potassium 4.4, chloride 108, CO2 content 21, BUN, creatinine normal, glucose 146, bilirubin 1.0, AST down to 45, ALT down to 120, alkaline phosphatase down to 594. Albumin is 2.7. ASSESSMENT: 1. Acute cholecystitis. 2. Duodenal stricture. 3. Diabetes mellitus with elevated blood sugars. 4. Decreased nutritional status. 5. Rheumatoid arthritis. PLAN: The patient at present is stable. Continue present medical regimen. Patient's condition discussed with the patient's daughter over the phone today after Dr. Ballard had discussed with me the patient's findings at endoscopy. The patient's prognosis remains guarded. We will continue present medical regimen. The patient may require cholecystectomy which could be done subsequently after the patient's general condition improves to some degree building her nutritional status up. MMNEIDA / SALLIE: [id number] /
[2018-03-12 20:29] LABS: Glucose,Whole Blood 321 mg/dL (75-99)
[2018-03-12] MEDS: INSULIN DETEMIR 100 UNIT/ML 10 ML VIAL SQ SCH (21:45)
[2018-03-12] MEDS: LATANOPROST 0.005% OPHTH DROPS 2.5 ML BTL BOTH EYES SCH (21:47)
[2018-03-13] MEDS: HEPARIN SODIUM,PORCINE 5,000 UNIT/ML 1 ML VIAL SQ SCH ×4 (02:24→23:25)
[2018-03-13] MEDS: SODIUM CHLORIDE 0.9% 1,000 ML IV SCH ×2 (06:07→17:58)
[2018-03-13 07:12] LABS: Glucose,Whole Blood 43 mg/dL (75-99)
[2018-03-13 07:12] LABS: Glucose,Whole Blood 41 mg/dL (75-99)
[2018-03-13 07:30] LABS: Glucose,Whole Blood 50 mg/dL (75-99)
[2018-03-13 07:51] LABS: Glucose,Whole Blood 104 mg/dL (75-99)
[2018-03-13 08:06] LABS: Glucose,Whole Blood 97 mg/dL (75-99)
[2018-03-13] MEDS: INSULIN ASPART 100 UNIT/ML 1 ML 10 ML VIAL SQ SCH ×4 (08:20→21:58)
[2018-03-13] MEDS: GLIMEPIRIDE 1 MG TAB PO SCH ×2 (08:27→21:58)
[2018-03-13] MEDS: TIMOLOL 0.5% OPHTH DROPS 5 ML BTL BOTH EYES SCH ×2 (08:36→19:21)
[2018-03-13] MEDS: PANTOPRAZOLE 40 MG/10 ML VIAL IV SCH (08:36)
[2018-03-13] MEDS: BRIMONIDINE TARTRATE 0.2% DROPS 5 ML BTL BOTH EYES SCH ×2 (08:36→19:21)
[2018-03-13 09:24] LABS: Albumin 3.2 g/dL (3.5-5.0); Calcium 10.1 mg/dL (8.4-10.2); Potassium 4.3 mmol/L (3.5-5.1); Total Bilirubin 1.1 mg/dL (0.2-1.3); Total Protein 6.1 g/dL (6.3-8.2)
--- NOTE | 2018-03-13 10:24 | P.PN ---
Subjective Progress Note Date: 03/13/18 Principal diagnosis: Elevated liver enzymes gallstone pancreatitis Attempted ERCP yesterday unsuccessful secondary to duodenal stricture. biopsies obtained. Presently denies pain. Transaminases alkaline phosphatase relatively unchanged AST 64. ALT 113. AP 682. Afebrile. Objective - Vital Signs Vital signs: Vital Signs Temp 98.7 F 03/13/18 05:00 Pulse 67 03/13/18 05:00 Resp 16 03/13/18 05:00 BP 145/72 03/13/18 05:00 Pulse Ox 95 03/13/18 05:00 Intake & Output 03/12/18 03/13/18 03/13/18 18:59 06:59 18:59 Intake Total 3540 1080 Balance 3540 1080 Weight 51.71 kg Intake: Intake, IV Titration 420 Amount Sodium Chloride 0.9% 1, 420 000 ml @ 70 mls/hr IV . [id number] [facility] Rx#:[id number] Oral 3120 1080 Other: Voiding Method Toilet Toilet # Voids 3 2 - Exam General appearance: The patient is alert, oriented, in no acute distress. HET: Head is normocephalic and atraumatic. Pupils are equal and reactive. Oropharynx is clear without lesions. Neck: Supple without lymphadenopathy. Trachea midline. Heart: S1 S2. Regular rate and rhythm. Lungs: No crackles or wheezes are heard. Abdomen: Soft, nontender, nondistended with bowel sounds. No peritoneal signs. No palpable organomegaly or masses. Extremities: Normal skin color and turgor. No cyanosis, rash, ulceration, clubbing, or edema. Radial and pedal pulses are 2/4 bilaterally. Neurological: No focal deficits. Strength and sensation are grossly intact. - Labs CBC & Chem 7: 03/11/18 07:24 03/13/18 07:26 Labs: Abnormal Lab Results - Last 24 Hours (Table) 03/12/18 03/12/18 03/12/18 Range/Units 13:31 17:18 20:26 Chloride (98-107) mmol/L Carbon Dioxide (22-30) mmol/L Glucose (74-99) mg/dL POC Glucose (mg/dL) 247 H 377 H 321 H (75-99) mg/dL AST (14-36) U/L ALT (9-52) U/L Alkaline Phosphatase (38-126) U/L Total Protein (6.3-8.2) g/dL Albumin (3.5-5.0) g/dL 03/13/18 03/13/18 03/13/18 Range/Units 07:08 07:10 07:26 Chloride 110 H (98-107) mmol/L Carbon Dioxide 21 L (22-30) mmol/L Glucose 44 L* (74-99) mg/dL POC Glucose (mg/dL) 41 L 43 L (75-99) mg/dL AST 64 H (14-36) U/L ALT 113 H (9-52) U/L Alkaline Phosphatase 682 H (38-126) U/L Total Protein 6.1 L (6.3-8.2) g/dL Albumin 3.2 L (3.5-5.0) g/dL 03/13/18 03/13/18 Range/Units 07:28 07:50 Chloride (98-107) mmol/L Carbon Dioxide (22-30) mmol/L Glucose (74-99) mg/dL POC Glucose (mg/dL) 50 L 104 H (75-99) mg/dL AST (14-36) U/L ALT (9-52) U/L Alkaline Phosphatase (38-126) U/L Total Protein (6.3-8.2) g/dL Albumin (3.5-5.0) g/dL Microbiology - Last 24 Hours (Table) 03/10/18 14:22 Blood Culture - Preliminary Blood No Growth after 48 hours Assessment and Plan (1) Elevated liver enzymes Narrative/Plan: Status post unsuccessful ERCP for evaluation of biliary ductal dilatation elevated transaminases alkaline phosphatase secondary to duodenal stricture. Current Visit: Yes Status: Acute Code(s): R74.8 - ABNORMAL LEVELS OF OTHER SERUM ENZYMES SNOMED Code(s): 925241634 (2) Duodenal stricture Current Visit: Yes Status: Acute Code(s): K31.5 - OBSTRUCTION OF DUODENUM SNOMED Code(s): 14304030 (3) Cholelithiasis Current Visit: Yes Status: Acute Code(s): K80.20 - CALCULUS OF GALLBLADDER W /O CHOLECYSTITIS W/O OBSTRUCTION SNOMED Code(s): 607004397 (4) Gallstone pancreatitis Current Visit: Yes Status: Acute Code(s): K85.10 - BILIARY ACUTE PANCREATITIS WITHOUT NECROSIS OR INFECTION SNOMED Code(s): 04641369 Plan: 1. Await biopsies. Supportive measures. Light diet as tolerated. We'll continue to follow. Assessment and plan a care discussed with Dr. Ballard
[2018-03-13 12:51] LABS: Glucose,Whole Blood 332 mg/dL (75-99)
[2018-03-13 17:22] LABS: Glucose,Whole Blood 291 mg/dL (75-99)
--- NOTE | 2018-03-13 17:31 | P.PN ---
Subjective Progress Note Date: 03/13/18 Principal diagnosis: Choledocholithiasis Patient denies abdominal pain. Tolerating diet. Appetite improved. Today's liver enzymes are improving. Objective - Vital Signs Vital signs: Vital Signs Temp 97.8 F 03/13/18 14:26 Pulse 88 03/13/18 14:26 Resp 16 03/13/18 14:26 BP 147/74 03/13/18 14:26 Pulse Ox 94 L 03/13/18 14:26 Intake & Output 03/12/18 03/13/18 03/13/18 18:59 06:59 18:59 Intake Total 3540 1080 500 Balance 3540 1080 500 Weight 51.71 kg 51.71 kg Intake: Intake, IV Titration 420 Amount Sodium Chloride 0.9% 1, 420 000 ml @ 70 mls/hr IV . [id number] [facility] Rx#:[id number] Oral 3120 1080 500 Other: Voiding Method Toilet Toilet # Voids 3 2 3 - Exam Abdomen: Soft, nontender, nondistended - Labs CBC & Chem 7: 03/11/18 07:24 03/13/18 07:26 Labs: Abnormal Lab Results - Last 24 Hours (Table) 03/12/18 03/13/18 03/13/18 Range/Units 20:26 07:08 07:10 Chloride (98-107) mmol/L Carbon Dioxide (22-30) mmol/L Glucose (74-99) mg/dL POC Glucose (mg/dL) 321 H 41 L 43 L (75-99) mg/dL AST (14-36) U/L ALT (9-52) U/L Alkaline Phosphatase (38-126) U/L Total Protein (6.3-8.2) g/dL Albumin (3.5-5.0) g/dL 03/13/18 03/13/18 03/13/18 Range/Units 07:26 07:28 07:50 Chloride 110 H (98-107) mmol/L Carbon Dioxide 21 L (22-30) mmol/L Glucose 44 L* (74-99) mg/dL POC Glucose (mg/dL) 50 L 104 H (75-99) mg/dL AST 64 H (14-36) U/L ALT 113 H (9-52) U/L Alkaline Phosphatase 682 H (38-126) U/L Total Protein 6.1 L (6.3-8.2) g/dL Albumin 3.2 L (3.5-5.0) g/dL 03/13/18 03/13/18 Range/Units 12:50 17:21 Chloride (98-107) mmol/L Carbon Dioxide (22-30) mmol/L Glucose (74-99) mg/dL POC Glucose (mg/dL) 332 H 291 H (75-99) mg/dL AST (14-36) U/L ALT (9-52) U/L Alkaline Phosphatase (38-126) U/L Total Protein (6.3-8.2) g/dL Albumin (3.5-5.0) g/dL Microbiology - Last 24 Hours (Table) 03/10/18 14:22 Blood Culture - Preliminary Blood No Growth after 72 hours Assessment and Plan (1) Gallstone pancreatitis Narrative/Plan: Continue diet as tolerated. Tentative plans for discharge with outpatient ERCP. Current Visit: Yes Status: Acute Code(s): K85.10 - BILIARY ACUTE PANCREATITIS WITHOUT NECROSIS OR INFECTION SNOMED Code(s): 97077135
[2018-03-13] MEDS: cefTRIAXone IN SWFI 1,000 MG/10 ML SYRINGE IVP SCH (19:37)
[2018-03-13 20:33] LABS: Glucose,Whole Blood 243 mg/dL (75-99)
[2018-03-13] MEDS: LATANOPROST 0.005% OPHTH DROPS 2.5 ML BTL BOTH EYES SCH (21:57)
[2018-03-13] MEDS: INSULIN DETEMIR 100 UNIT/ML 10 ML VIAL SQ SCH (22:03)
--- NOTE | 2018-03-13 23:01 | PN ---
PROGRESS NOTE CHIEF COMPLAINT: Re-evaluation. HISTORY OF PRESENT ILLNESS: This is an 87-year-old female was admitted to the hospital with some obstructive jaundice. 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 The patient's hepatic function, however, has improved. The patient has also been followed by the general surgeon. The patient has evidence of cholecystitis. She also has cholelithiasis. The patient basically is asymptomatic. She denies any abdominal pain. The only symptoms that she had were some nausea, vomiting and a very poor appetite. She no further has nausea or vomiting, but appetite still remains poor. Discussed with patient possible discharge home tomorrow and then, if the patient builds up, then she could have subsequent surgery. She will have ERCP as an outpatient prior to surgery patient meanwhile is encouraged to have increased intake. REVIEW OF SYSTEMS: NEURO: Denies any headaches, dizziness. PSYCH: No anxiety. CARDIAC: Denies chest pain, angina, palpitations. RESPIRATORY: Denies shortness of breath, cough, hemoptysis. GI: No nausea, vomiting, abdominal pain, diarrhea. : No symptoms of dysuria, hematuria, urgency, frequency. EXTREMITIES: Denies any pain, edema. CONSTITUTIONAL: No fever, chills. PHYSICAL EXAMINATION: Pleasant female. Vital signs revealed temperature 98.7, pulse 67, respirations 16, blood pressure 145/72, pulse ox 95% on room air. HEENT: Normocephalic. NECK: No JVD. CHEST EXAMINATION: Clear to auscultation with mild decreased air flow at the bases. CARDIAC: Distant heart sounds S1, S2 with no gallop. Systolic murmur 2/6, left sternal border. ABDOMEN: Soft. No palpable masses. Bowel sounds normal. No organomegaly. No abdominal bruits. Extremities reveal trace edema. Neurologically awake, alert, oriented with well-coordinated movements. LABORATORY ASSESSMENT: Accu-Cheks. The patient did have a low blood sugar of 44 this morning. Electrolytes were normal. Chloride 110, CO2 content 21. BUN and creatinine are normal. AST down 64, ALT 132, alkaline phosphatase 682. Albumin 3.2. ASSESSMENT: 1. Acute cholecystitis. 2. Diabetes mellitus with hyperglycemia with significant hypoglycemia this morning from use of long-acting insulin last night. 3. Generalized debility. 4. Rheumatoid arthritis. PLAN: The patient at present is continued on IV antibiotics and seems to be improving. Potentially will be discharged home with continuation of care. Patient's prognosis remains guarded. MMSTANLEYL / JOSEN: [id number] /
[2018-03-14 03:08] LABS: Glucose,Whole Blood 198 mg/dL (75-99)
[2018-03-14 07:28] LABS: Glucose,Whole Blood 188 mg/dL (75-99)
[2018-03-14] MEDS: INSULIN ASPART 100 UNIT/ML 1 ML 10 ML VIAL SQ SCH ×4 (07:32→21:51)
[2018-03-14] MEDS: PANTOPRAZOLE 40 MG TABLET PO SCH (08:04)
[2018-03-14] MEDS: HEPARIN SODIUM,PORCINE 5,000 UNIT/ML 1 ML VIAL SQ SCH ×3 (08:04→23:28)
[2018-03-14] MEDS: BRIMONIDINE TARTRATE 0.2% DROPS 5 ML BTL BOTH EYES SCH ×2 (08:04→17:40)
[2018-03-14] MEDS: TIMOLOL 0.5% OPHTH DROPS 5 ML BTL BOTH EYES SCH ×2 (08:04→17:41)
[2018-03-14] MEDS: GLIMEPIRIDE 1 MG TAB PO SCH ×2 (08:04→21:52)
--- NOTE | 2018-03-14 08:28 | P.PN ---
Subjective Progress Note Date: 03/14/18 Principal diagnosis: Choledocholithiasis Patient denies pain. Mildly hypoxic. Having a chest x-ray performed this morning. Morning labs pending. Objective - Vital Signs Vital signs: Vital Signs Temp 99.0 F 03/14/18 06:00 Pulse 94 03/14/18 06:00 Resp 16 03/14/18 06:00 BP 164/73 03/14/18 06:00 Pulse Ox 91 L 03/14/18 06:00 Intake & Output 03/13/18 03/14/18 03/14/18 18:59 06:59 18:59 Intake Total 1940 70 Balance 1940 70 Weight 51.71 kg Intake: Intake, IV Titration 70 Amount Sodium Chloride 0.9% 1, 70 000 ml @ 70 mls/hr IV . [id number] [facility] Rx#:[id number] Oral 1939 Other: Voiding Method Toilet Toilet # Voids 3 1 1 - Exam Abdomen: Soft, nondistended nontender - Labs CBC & Chem 7: 03/11/18 07:24 03/13/18 07:26 Labs: Abnormal Lab Results - Last 24 Hours (Table) 03/13/18 03/13/18 03/13/18 Range/Units 07:26 12:50 17:21 Chloride 110 H (98-107) mmol/L Carbon Dioxide 21 L (22-30) mmol/L Glucose 44 L* (74-99) mg/dL POC Glucose (mg/dL) 332 H 291 H (75-99) mg/dL AST 64 H (14-36) U/L ALT 113 H (9-52) U/L Alkaline Phosphatase 682 H (38-126) U/L Total Protein 6.1 L (6.3-8.2) g/dL Albumin 3.2 L (3.5-5.0) g/dL 03/13/18 03/14/18 03/14/18 Range/Units 20:31 03:05 07:26 Chloride (98-107) mmol/L Carbon Dioxide (22-30) mmol/L Glucose (74-99) mg/dL POC Glucose (mg/dL) 243 H 198 H 188 H (75-99) mg/dL AST (14-36) U/L ALT (9-52) U/L Alkaline Phosphatase (38-126) U/L Total Protein (6.3-8.2) g/dL Albumin (3.5-5.0) g/dL Microbiology - Last 24 Hours (Table) 03/10/18 14:22 Blood Culture - Preliminary Blood No Growth after 72 hours Assessment and Plan (1) Gallstone pancreatitis Narrative/Plan: Will check morning labs. Outpatient MRCP planned at this time. We'll follow. Current Visit: Yes Status: Acute Code(s): K85.10 - BILIARY ACUTE PANCREATITIS WITHOUT NECROSIS OR INFECTION SNOMED Code(s): 60832297
--- NOTE | 2018-03-14 09:08 | XR ---
EXAMINATION TYPE: XR chest 1V portable DATE OF EXAM: 03/14/2018 COMPARISON: NONE HISTORY: Shortness of breath TECHNIQUE: Single frontal view of the chest is obtained. FINDINGS: There is a moderately right pleural effusion and right basilar airspace disease with sligh t rightward mediastinal rotation likely secondary to patient positioning. There is diffuse interstiti al prominence and Meseret B lines suggesting underlying decompensated congestive heart failure with in terstitial pulmonary edema. Cardiomediastinal silhouette is enlarged. Osseous structures are generall y demineralized with degenerative change. IMPRESSION: Findings favoring decompensated congestive heart failure with interstitial pulmonary jade ma and a moderate right pleural effusion as well as right basilar airspace disease.
--- NOTE | 2018-03-14 09:50 | P.PN ---
Subjective Progress Note Date: 03/14/18 Principal diagnosis: Elevated liver enzymes gallstone pancreatitis Attempted ERCP 2 days ago for evaluation of elevated liver enzymes CT reported gallstones. ERCP unsuccessful secondary to duodenal stricture. Biopsies negative for malignancy. Presently denies pain. Decreased oxygen saturations this morning. Objective - Vital Signs Vital signs: Vital Signs Temp 99.0 F 03/14/18 06:00 Pulse 94 03/14/18 08:00 Resp 16 03/14/18 08:00 BP 164/73 03/14/18 06:00 Pulse Ox 91 L 03/14/18 06:00 Intake & Output 03/13/18 03/14/18 03/14/18 18:59 06:59 18:59 Intake Total 1939 70 Balance 194 70 Weight 51.71 kg Intake: Intake, IV Titration 70 Amount Sodium Chloride 0.9% 1, 70 000 ml @ 70 mls/hr IV . [id number] [facility] Rx#:[id number] Oral 1939 Other: Voiding Method Toilet Toilet Toilet # Voids 3 1 1 - Exam General appearance: The patient is alert, oriented, in no acute distress. HET: Head is normocephalic and atraumatic. Pupils are equal and reactive. Oropharynx is clear without lesions. Neck: Supple without lymphadenopathy. Trachea midline. Heart: S1 S2. Regular rate and rhythm. Lungs: No crackles or wheezes are heard mildly diminished in bilateral bases. Abdomen: Soft, nontender, nondistended with bowel sounds. No peritoneal signs. No palpable organomegaly or masses. Extremities: Normal skin color and turgor. No cyanosis, rash, ulceration, clubbing, or edema. Radial and pedal pulses are 2/4 bilaterally. Neurological: No focal deficits. Strength and sensation are grossly intact. - Labs CBC & Chem 7: 03/11/18 07:24 03/13/18 07:26 Labs: Abnormal Lab Results - Last 24 Hours (Table) 03/13/18 03/13/18 03/13/18 Range/Units 12:50 17:21 20:31 POC Glucose (mg/dL) 332 H 291 H 243 H (75-99) mg/dL 03/14/18 03/14/18 Range/Units 03:05 07:26 POC Glucose (mg/dL) 198 H 188 H (75-99) mg/dL Microbiology - Last 24 Hours (Table) 03/10/18 14:22 Blood Culture - Preliminary Blood No Growth after 72 hours Assessment and Plan (1) Elevated liver enzymes Narrative/Plan: Status post unsuccessful ERCP for evaluation of biliary ductal dilatation elevated transaminases alkaline phosphatase secondary to duodenal stricture. Current Visit: Yes Status: Acute Code(s): R74.8 - ABNORMAL LEVELS OF OTHER SERUM ENZYMES SNOMED Code(s): 690369761 (2) Duodenal stricture Current Visit: Yes Status: Acute Code(s): K31.5 - OBSTRUCTION OF DUODENUM SNOMED Code(s): 91024174 (3) Cholelithiasis Current Visit: Yes Status: Acute Code(s): K80.20 - CALCULUS OF GALLBLADDER W /O CHOLECYSTITIS W/O OBSTRUCTION SNOMED Code(s): 014780813 (4) Gallstone pancreatitis Current Visit: Yes Status: Acute Code(s): K85.10 - BILIARY ACUTE PANCREATITIS WITHOUT NECROSIS OR INFECTION SNOMED Code(s): 59757511 Plan: 1. Outpatient MRCP prescription provided. Repeat CMP 5-7 days. Return to office in 4 weeks for reevaluation. Discharge per medicine. Assessment and plan a care discussed with Dr. Ballard
[2018-03-14] MEDS ORDERED: FUROSEMIDE 10 MG/ML 4 ML VIAL IV STA (10:11)
[2018-03-14 11:31] LABS: Glucose,Whole Blood 397 mg/dL (75-99)
[2018-03-14 14:13] LABS: Albumin 3.2 g/dL (3.5-5.0); Calcium 11.3 mg/dL (8.4-10.2); Potassium 5.1 mmol/L (3.5-5.1); Total Protein 6.2 g/dL (6.3-8.2)
[2018-03-14 17:32] LABS: Glucose,Whole Blood 194 mg/dL (75-99)
[2018-03-14] MEDS: cefTRIAXone IN SWFI 1,000 MG/10 ML SYRINGE IVP SCH (17:40)
[2018-03-14] MEDS: SODIUM CHLORIDE 0.9% 1,000 ML IV SCH ×2 (19:01→23:55)
[2018-03-14 20:17] LABS: Glucose,Whole Blood 279 mg/dL (75-99)
[2018-03-14] MEDS: INSULIN DETEMIR 100 UNIT/ML 10 ML VIAL SQ SCH (21:43)
[2018-03-14] MEDS: LATANOPROST 0.005% OPHTH DROPS 2.5 ML BTL BOTH EYES SCH (21:52)
--- NOTE | 2018-03-14 23:29 | PN ---
PROGRESS NOTE CHIEF COMPLAINT: Re-evaluation. HISTORY OF PRESENT ILLNESS: This is an 87-year-old female who was admitted to the hospital with acute cholecystitis and obstructive jaundice. This has improved. The patient today, however, was somewhat short of breath and has a cough. Chest x-ray suggests CHF changes. The patient's pulse ox was 88% on room air. She does have some pulmonary fibrosis, rheumatoid arthritis. Chest x-ray suggested right pleural effusion and congestive cardiac failure changes. BNP 3000. REVIEW OF SYSTEMS: NEURO: Denies any headaches, dizziness. PSYCH: No anxiety. CARDIAC: No chest pain, angina, palpitation. RESPIRATORY: Denies shortness of breath, cough. GI: No nausea, vomiting, abdominal pain, diarrhea. : No symptoms of dysuria or hematuria. EXTREMITIES: Denies pain. CONSTITUTIONAL: No fever or chills. PHYSICAL EXAMINATION: Pleasant female in no distress. Vital signs reveal temperature 98.7, pulse 80, respirations 16, blood pressure 145/72. Pulse ox recorded is 88% on room air. HEENT: Normocephalic. NECK: No JVD. CHEST EXAMINATION: Some decreased air flow at the right base. CARDIAC: Normal S1, S2 with no gallops. Systolic murmur 2/6, left sternal border. ABDOMEN: Soft. Bowel sounds present. Extremities reveal trace edema. Neurologically awake, alert, oriented with well-coordinated movements though restricted due to rheumatoid arthritis. LABORATORY ASSESSMENT: Potassium 5.1, sodium 134, CO2 content 21. BUN and creatinine are normal. Glucose was 356. Alkaline phosphatase is down to 615. ALT, AST are down. Bilirubin is 1.0. Albumin 3.2. BNP was 3260. ASSESSMENT: 1. Obstructive jaundice, improving. 2. Cholelithiasis. 3. Duodenal stricture. 4. Rheumatoid arthritis. 5. Shortness of breath with suggestion of congestive cardiac failure, undetermined etiology; probably diastolic dysfunction. 6. Diabetes mellitus. PLAN: The patient at present will be given Lasix. Continue present medical regimen. The patient's blood sugars were yesterday down. Today they are up. The patient may require some insulin supplement. Will give the patient some Levemir in the mornings. Patient's prognosis remains guarded. MMODL / IJN: [id number] /
[2018-03-15 07:13] LABS: Glucose,Whole Blood 211 mg/dL (75-99)
[2018-03-15] MEDS: INSULIN ASPART 100 UNIT/ML 1 ML 10 ML VIAL SQ SCH ×4 (08:04→21:15)
[2018-03-15] MEDS: PANTOPRAZOLE 40 MG TABLET PO SCH (08:05)
[2018-03-15] MEDS: HEPARIN SODIUM,PORCINE 5,000 UNIT/ML 1 ML VIAL SQ SCH ×3 (08:05→23:51)
[2018-03-15] MEDS: GLIMEPIRIDE 1 MG TAB PO SCH ×2 (08:06→21:15)
[2018-03-15] MEDS: TIMOLOL 0.5% OPHTH DROPS 5 ML BTL BOTH EYES SCH ×2 (08:06→17:55)
[2018-03-15] MEDS: BRIMONIDINE TARTRATE 0.2% DROPS 5 ML BTL BOTH EYES SCH ×2 (08:06→17:55)
[2018-03-15] MEDS: SODIUM CHLORIDE 0.9% 1,000 ML IV SCH (08:06)
[2018-03-15] MEDS: INSULIN DETEMIR 100 UNIT/ML 10 ML VIAL SQ SCH ×2 (08:54→21:15)
[2018-03-15 09:00] LABS: Anisocytosis Slight; Basophils # (A) 0.1 k/uL (0-0.2); Basophils % (A) 1 %; Eosinophils # (A) 0.2 k/uL (0-0.7); Eosinophils % (A) 2 %; HCT 33.7 % (34.0-46.0); Lymphocytes # (A) 1.2 k/uL (1.0-4.8); Lymphocytes % (A) 11 %; MCH 31.6 pg (25.0-35.0); MCHC 32.5 g/dL (31.0-37.0); Macrocytosis Slight; Mean Platelet Volume 7.3; Monocytes # (A) 0.8 k/uL (0-1.0); Monocytes % (A) 8 %; Neutrophils # (A) 8.3 k/uL (1.3-7.7); Neutrophils % (A) 77 %; Platelet Count 270 k/uL (150-450); RBC 3.47 m/uL (3.80-5.40); RDW 16.4 % (11.5-15.5); WBC 10.8 k/uL (3.8-10.6)
[2018-03-15 09:39] LABS: Albumin 3.1 g/dL (3.5-5.0); Calcium 9.8 mg/dL (8.4-10.2); Potassium 4.1 mmol/L (3.5-5.1); Total Protein 5.9 g/dL (6.3-8.2)
[2018-03-15] MEDS ORDERED: METOPROLOL TARTRATE 50 MG TAB PO STA ×2 (09:50→17:21)
[2018-03-15 11:54] LABS: Glucose,Whole Blood 325 mg/dL (75-99)
--- NOTE | 2018-03-15 12:29 | CDI ---
Last Revision, September 2017 Documentation Clarification Form Date: 03/15/2018 12:00:00 AM From: Leticia Alaniz RN, CCDS Admit Date: 03/10/2018 6:19:00 PM Patient Name: Bita Mayfield Visit Number: [id number] Discharge Date: ATTENTION: The Clinical Documentation Specialists (CDI) and [facility] Coding Staff appreciate your assistance in clarifying documentation. Please respond to the clarification below the line at the bottom and electronically sign. The CDI & [facility] Coding staff will review the response and follow-up if needed. Please note: Queries are made part of the Legal Health Record. If you have any questions, please contact the author of this message via ITS. Dr. Nigel Luna 03/14/18 CHF, probably diastolic dysfunction is documented in your progress note. History/Risk Factors: Rheumatoid arthritis, Diabetes mellitus, Gallstone pancreatitis, Acute cholecystitis, Clinical Indicators: 03/14/18 patient noted shortness of breath and decreased oxygen saturations. A chest x-ray was obtained and suggests CHF changes. The patient's pulse ox 88 % on room air. Per your progress notes. VS/Pulse OX: 145/72 80 16 88 % RA BNP: 3000 Treatment: Lasix IV Monitor Labs Monitor O2 Sat's In your professional opinion, can you please further clarify the acuity of CHF if known? Acute diastolic congestive heart failure Chronic diastolic congestive heart failure Other, please specify Unable to determine Please continue to document in your progress notes and discharge summary in order to capture severity of illness and risk of mortality. Include clinical findings that support your diagnosis. MTDD
[2018-03-15 17:17] LABS: Glucose,Whole Blood 237 mg/dL (75-99)
--- NOTE | 2018-03-15 17:33 | P.PN ---
Subjective Progress Note Date: 03/15/18 Principal diagnosis: Choledocholithiasis Patient once again denies pain. Alkaline phosphatase improved. White blood cell count normal. Had an episode of tachycardia and is being observed overnight. Objective - Vital Signs Vital signs: Vital Signs Temp 98.0 F 03/15/18 16:48 Pulse 94 03/15/18 16:48 Resp 16 03/15/18 16:48 BP 104/63 03/15/18 16:48 Pulse Ox 95 03/15/18 16:48 Intake & Output 03/14/18 03/15/18 03/15/18 18:59 06:59 18:59 Intake Total 140 Balance 140 Intake: Intake, IV Titration 140 Amount Sodium Chloride 0.9% 1, 140 000 ml @ 70 mls/hr IV . [id number] [facility] Rx#:[id number] Other: Voiding Method Toilet Toilet Toilet # Voids 6 2 4 - Exam Abdomen: Soft, nontender, nondistended - Labs CBC & Chem 7: 03/15/18 08:34 03/15/18 08:34 Labs: Abnormal Lab Results - Last 24 Hours (Table) 03/14/18 03/14/18 03/15/18 Range/Units 17:16 20:15 07:11 WBC (3.8-10.6) k/uL RBC (3.80-5.40) m/uL Hgb (11.4-16.0) gm/dL Hct (34.0-46.0) % RDW (11.5-15.5) % Neutrophils # (1.3-7.7) k/uL Glucose (74-99) mg/dL POC Glucose (mg/dL) 194 H 279 H 211 H (75-99) mg/dL ALT (9-52) U/L Alkaline Phosphatase (38-126) U/L Total Protein (6.3-8.2) g/dL Albumin (3.5-5.0) g/dL 03/15/18 03/15/18 03/15/18 Range/Units 08:34 08:34 11:53 WBC 10.8 H (3.8-10.6) k/uL RBC 3.47 L (3.80-5.40) m/uL Hgb 11.0 L (11.4-16.0) gm/dL Hct 33.7 L (34.0-46.0) % RDW 16.4 H (11.5-15.5) % Neutrophils # 8.3 H (1.3-7.7) k/uL Glucose 253 H (74-99) mg/dL POC Glucose (mg/dL) 325 H (75-99) mg/dL ALT 72 H (9-52) U/L Alkaline Phosphatase 484 H (38-126) U/L Total Protein 5.9 L (6.3-8.2) g/dL Albumin 3.1 L (3.5-5.0) g/dL 03/15/18 Range/Units 17:16 WBC (3.8-10.6) k/uL RBC (3.80-5.40) m/uL Hgb (11.4-16.0) gm/dL Hct (34.0-46.0) % RDW (11.5-15.5) % Neutrophils # (1.3-7.7) k/uL Glucose (74-99) mg/dL POC Glucose (mg/dL) 237 H (75-99) mg/dL ALT (9-52) U/L Alkaline Phosphatase (38-126) U/L Total Protein (6.3-8.2) g/dL Albumin (3.5-5.0) g/dL Microbiology - Last 24 Hours (Table) 03/10/18 14:22 Blood Culture - Preliminary Blood No Growth after 120 hours Assessment and Plan (1) Gallstone pancreatitis Narrative/Plan: Continue to follow enzymes post discharge. Plan MRCP post discharge. Follow- up with me once MRCP obtained to discuss value of cholecystectomy. We'll sign off. Please contact if needed. Current Visit: Yes Status: Acute Code(s): K85.10 - BILIARY ACUTE PANCREATITIS WITHOUT NECROSIS OR INFECTION SNOMED Code(s): 08387466
[2018-03-15] MEDS: cefTRIAXone IN SWFI 1,000 MG/10 ML SYRINGE IVP SCH (17:52)
[2018-03-15 20:18] LABS: Glucose,Whole Blood 278 mg/dL (75-99)
[2018-03-15] MEDS: LATANOPROST 0.005% OPHTH DROPS 2.5 ML BTL BOTH EYES SCH (21:15)
[2018-03-15] MEDS ORDERED: INSULIN DETEMIR 100 UNIT/ML 10 ML VIAL SQ SCH (23:04)
[2018-03-16] MEDS: SODIUM CHLORIDE 0.9% 1,000 ML IV SCH (04:31)
--- NOTE | 2018-03-16 06:37 | PN ---
PROGRESS NOTE CHIEF COMPLAINT: Re-evaluation. HISTORY OF PRESENT ILLNESS: This is an 87-year-old female who was admitted to the hospital with acute cholecystitis and obstructive jaundice. The patient's symptoms were low-grade fever and decreased intake. The patient denies any abdominal pain. The patient's CAT scan has shown also evidence of right hydronephrosis. The patient has been doing well. She is starting to eat. However, today at the time of my examination this morning the patient was tachycardia, rate of 140, regular. She had no symptoms with it. No palpitations. No shortness of breath. No chest pain. REVIEW OF SYSTEMS: NEURO: Denies any headaches or dizziness. PSYCH: No anxiety. CARDIAC: No chest pain, angina, palpitations. RESPIRATORY: Denies shortness of breath, cough. GI: No nausea, vomiting, abdominal pain, diarrhea. : Denies symptoms of dysuria, hematuria. EXTREMITIES: No pain. CONSTITUTIONAL: No fever or chills. PHYSICAL EXAMINATION: A pleasant female at present in no distress. Vital signs revealed temperature of 99, pulse 94, respirations 16, blood pressure 164/70, pulse ox 91% on room air. HEENT: Normocephalic. Decreased range of motion in the neck. CHEST EXAMINATION: Clear to auscultation. CARDIAC: Normal S1, S2. No gallops. Regular rhythm. Tachycardic. ABDOMEN: Soft. Bowel sounds present. EXTREMITIES: Trace edema. NEUROLOGICAL: Awake, alert, oriented, generalized stiffness. Patient has deformities relating to rheumatoid arthritis. LABORATORY ASSESSMENT: White count 10.8, hemoglobin 11. Glucose 253. AST normal 35, bilirubin normal, ALT down to 72, alkaline phosphatase down to 484. Blood sugars have been down. ASSESSMENT: 1. Supraventricular tachycardia. 2. Acute cholecystitis, resolved. 3. Hydronephrosis. 4. Rheumatoid arthritis. 5. Diabetes mellitus. PLAN: The patient at present is stable. Continue present medical regimen. The patient was re- evaluated in the evening and she has intermittently been tachycardic. The patient has received metoprolol today. General condition is stable. Patient denies any other symptoms. The patient's condition discussed with the daughter. Will obtain a consultation with Urology and get an echocardiogram. MMODL / IJN: [id number] /
[2018-03-16 08:01] LABS: Glucose,Whole Blood 82 mg/dL (75-99)
[2018-03-16] MEDS: INSULIN ASPART 100 UNIT/ML 1 ML 10 ML VIAL SQ SCH ×4 (08:04→22:58)
[2018-03-16] MEDS: PANTOPRAZOLE 40 MG TABLET PO SCH (08:42)
[2018-03-16] MEDS: BRIMONIDINE TARTRATE 0.2% DROPS 5 ML BTL BOTH EYES SCH ×2 (08:42→16:56)
[2018-03-16] MEDS: TIMOLOL 0.5% OPHTH DROPS 5 ML BTL BOTH EYES SCH ×2 (08:42→16:56)
[2018-03-16] MEDS: GLIMEPIRIDE 1 MG TAB PO SCH ×2 (08:42→22:53)
[2018-03-16] MEDS ORDERED: INSULIN DETEMIR 100 UNIT/ML 10 ML VIAL SQ SCH (09:00)
[2018-03-16 09:21] LABS: Potassium 4.4 mmol/L (3.5-5.1)
[2018-03-16] MEDS: DILTIAZEM 50 MG in SODIUM CHLORIDE 0.9% 40 ML IV SCH ×3 (09:39→22:51)
[2018-03-16] MEDS: INSULIN DETEMIR 100 UNIT/ML 10 ML VIAL SQ SCH ×2 (10:05→17:22)
[2018-03-16] MEDS: ENOXAPARIN 60 MG/0.6 ML SYRINGE SQ SCH ×2 (10:05→22:52)
--- NOTE | 2018-03-16 11:53 | ECHOF ---
Referral Reason:tachycardia MEASUREMENTS -------- HEIGHT: 165.1 cm WEIGHT: 51.7 kg BP: 130/75 RVIDd: 2.8 cm (< 3.3) IVSd: 1.2 cm (0.6 - 1.1) LVIDd: 3.5 cm (3.9 - 5.3) LVPWd: 1.1 cm (0.6 - 1.1) IVSs: 1.3 cm LVIDs: 2.4 cm LVPWs: 1.5 cm LA Diam: 3.6 cm (2.7 - 3.8) LAESV Index (A-L): 36.01 ml/m Ao Diam: 3.2 cm (2.0 - 3.7) AV Cusp: 2.3 cm (1.5 - 2.6) MV EXCURSION: 10.629 mm (> 18.000) MV EF SLOPE: 45 mm/s (70 - 150) EPSS: 0.9 cm RAP: 5.00 mmHg RVSP: 47.05 mmHg FINDINGS -------- Atrial fibrillation. This was a technically good study. The left ventricular size is normal. There is borderline concentric left ventricular hypertrophy. Overall left ventricular systolic function is normal with, an EF between 60 - 65 %. The right ventricle is normal in size. LA is moderately dilated 34-39 ml/m2 The right atrium is normal in size. There is mild aortic valve sclerosis. Mild mitral annular calcification present. Moderate mitral regurgitation is present. Moderate tricuspid regurgitation present. There is moderate pulmonary hypertension. The right sofy tricular systolic pressure, as measured by Doppler, is 47.05mmHg. Trace/mild (physiologic) pulmonic regurgitation. The aortic root size is normal. Normal inferior vena cava with normal inspiratory collapse consistent with estimated right atrial pre ssure of 5 mmHg. There is no pericardial effusion. CONCLUSIONS -------- 1. Atrial fibrillation. 2. This was a technically good study. 3. The left ventricular size is normal. 4. There is borderline concentric left ventricular hypertrophy. 5. Overall left ventricular systolic function is normal with, an EF between 60 - 65 %. 6. The right ventricle is normal in size. 7. LA is moderately dilated 34-39 ml/m2 8. The right atrium is normal in size. 9. There is mild aortic valve sclerosis. 10. Mild mitral annular calcification present. 11. Moderate mitral regurgitation is present. 12. Moderate tricuspid regurgitation present. 13. There is moderate pulmonary hypertension. 14. The right ventricular systolic pressure, as measured by Doppler, is 47.05mmHg. 15. Trace/mild (physiologic) pulmonic regurgitation. 16. The aortic root size is normal. 17. Normal inferior vena cava with normal inspiratory collapse consistent with estimated right atrial pressure of 5 mmHg. 18. There is no pericardial effusion. SKILLED NURSING FACILITIES PROFESSIONAL: Mitzy Maria RDCS
[2018-03-16 11:54] LABS: Glucose,Whole Blood 333 mg/dL (75-99)
[2018-03-16 17:11] LABS: Glucose,Whole Blood 50 mg/dL (75-99)
[2018-03-16] MEDS: cefTRIAXone IN SWFI 1,000 MG/10 ML SYRINGE IVP SCH (17:30)
[2018-03-16 17:34] LABS: Glucose,Whole Blood 77 mg/dL (75-99)
[2018-03-16 21:06] LABS: Glucose,Whole Blood 328 mg/dL (75-99)
--- NOTE | 2018-03-16 21:28 | P.GSCN ---
History of Present Illness Consult date: 03/16/18 Reason for Consult: Right hydronephrosis History of present illness: The patient is an 87-year-old female ho was admitted on 03/10/2018 for evaluation of abnormal liver function tests. She apparently also had a low-grade fever and some nausea and vomiting on the day prior to admission. At the time of admission her alkaline phosphatase and serum transaminase studies were elevated. Total bilirubin was 1.8. CT scan of the abdomen and pelvis showed some slight dilation of the intrahepatic biliary system as well as gallstones and the findings were suggestive of acute cholecystitis. In addition to that, moderately severe right hydronephrosis secondary to possible calculi in the mid ureter was noted. 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 Biopsies were obtained and are pending. Her liver function tests have improved somewhat. BUN/creatinine on admission were 25/0.9. BUN/creatinine today were 21/0.93. Her urinalysis at the time of admission was unremarkable. She has apparently also developed a cardiac arrythmia in the last day. The patient denies any abdominal or flank pain. She has no definite history of urolithiasis or gross hematuria. Review of Systems - Constitutional Reports as per HPI - Gastrointestinal Denies abdominal pain - Genitourinary Genitourinary: Reports as per HPI, Denies dysuria, Denies flank pain, Denies hematuria Past Medical History Past Medical History: Rheumatoid Arthritis (RA) History of Any Multi-Drug Resistant Organisms: None Reported Past Surgical History: Joint Replacement Additional Past Surgical History / Comment(s): L hip Past Psychological History: No Psychological Hx Reported Smoking Status: Never smoker Past Alcohol Use History: None Reported Past Drug Use History: None Reported - Past Family History Mother Family Medical History: Diabetes Mellitus Medications and Allergies Home Medications Medication Instructions Recorded Confirmed Type Brimonidine Tartrate [Alphagan P 1 drops BOTH EYES BID@0900,1800 03/10/18 History 0.2% Ophth Soln] Latanoprost [Xalatan 0.005%] 1 drop BOTH EYES HS@2200 03/10/18 03/10/18 History Timolol 0.5% Ophth Soln [Timoptic 1 drop BOTH EYES BID@0900,1800 03/10/18 History 0.5% Ophth Soln] Acetaminophen Tab [Tylenol] 650 mg PO Q6HR PRN tab 03/14/18 Rx Glimepiride [Amaryl] 1 mg PO BID tab 03/14/18 Rx Levofloxacin [Levaquin] 250 mg PO DAILY #7 tab 03/14/18 Rx Pantoprazole [Protonix] 40 mg PO AC-BRKFST #30 tablet. 03/14/18 Rx Allergies Allergy/AdvReac Type Severity Reaction Status Date / Time No Known Allergies Allergy Verified 03/10/18 15:15 Surgical - Exam Vital Signs Temp Pulse Resp BP Pulse Ox 100.6 F H 68 16 146/61 96 03/10/18 14:04 03/10/18 14:04 03/10/18 14:04 03/10/18 14:04 03/10/18 14:04 - General well developed, well nourished, no distress - Respiratory normal respiratory effort - Abdomen Abdomen: soft, non tender, no organomegaly Results - Labs 03/15/18 08:34 03/16/18 08:25 Abnormal Lab Results - Last 24 Hours (Table) 03/16/18 03/16/18 03/16/18 Range/Units 08:25 11:34 16:50 Sodium 136 L (137-145) mmol/L BUN 21 H (7-17) mg/dL Glucose 133 H (74-99) mg/dL POC Glucose (mg/dL) 333 H 50 L (75-99) mg/dL 03/16/18 Range/Units 20:54 Sodium (137-145) mmol/L BUN (7-17) mg/dL Glucose (74-99) mg/dL POC Glucose (mg/dL) 328 H (75-99) mg/dL Microbiology - Last 24 Hours (Table) 03/10/18 14:22 Blood Culture - Final Blood No Growth after 144 hours Diabetes panel 03/16/18 Range/Units 08:25 Sodium 136 L (137-145) mmol/L Potassium 4.4 (3.5-5.1) mmol/L Chloride 99 (98-107) mmol/L Carbon Dioxide 27 (22-30) mmol/L BUN 21 H (7-17) mg/dL Creatinine 0.93 (0.52-1.04) mg/dL Glucose 133 H (74-99) mg/dL Calcium 10.0 (8.4-10.2) mg/dL Thyroid panel 03/16/18 Range/Units 08:25 TSH 2.070 (0.465-4.680) mIU/L Calcium panel 03/16/18 Range/Units 08:25 Calcium 10.0 (8.4-10.2) mg/dL Pituitary panel 03/16/18 Range/Units 08:25 Sodium 136 L (137-145) mmol/L Potassium 4.4 (3.5-5.1) mmol/L Chloride 99 (98-107) mmol/L Carbon Dioxide 27 (22-30) mmol/L BUN 21 H (7-17) mg/dL Creatinine 0.93 (0.52-1.04) mg/dL Glucose 133 H (74-99) mg/dL Calcium 10.0 (8.4-10.2) mg/dL TSH 2.070 (0.465-4.680) mIU/L Adrenal panel 03/16/18 Range/Units 08:25 Sodium 136 L (137-145) mmol/L Potassium 4.4 (3.5-5.1) mmol/L Chloride 99 (98-107) mmol/L Carbon Dioxide 27 (22-30) mmol/L BUN 21 H (7-17) mg/dL Creatinine 0.93 (0.52-1.04) mg/dL Glucose 133 H (74-99) mg/dL Calcium 10.0 (8.4-10.2) mg/dL Assessment and Plan (1) Hydronephrosis Narrative/Plan: The patient has relatively severe right hydroureteronephrosis with an apparent obstructure just distal to the level of the common iliac artery. There appear to be two calcifications measuring 3 and 2 mm in this region that could be calculi, but unfortunately the ureter is poorly defined in this region. I suspect the obstruction is chronic. Cystoscopy with right retrograde could be set up at some point for further evaluation, depending on the results of the doudenal biopsy and control of her arrythmia. Current Visit: Yes Status: Acute Code(s): N13.30 - UNSPECIFIED HYDRONEPHROSIS SNOMED Code(s): 95708328
[2018-03-16] MEDS: LATANOPROST 0.005% OPHTH DROPS 2.5 ML BTL BOTH EYES SCH (22:54)
--- NOTE | 2018-03-16 23:49 | PN ---
PROGRESS NOTE ATTENDING PHYSICIAN: Dr. Santos Luna. CHIEF COMPLAINT: Re-evaluation. HISTORY OF PRESENT ILLNESS: This 87-year-old female was admitted to the hospital with acute cholecystitis. The patient has developed atrial fibrillation with rapid ventricular rate. The patient is on treatment for the same with Cardizem drip today. The patient yesterday was in supraventricular tachycardia. The patient today converted into atrial fibrillation with rapid ventricular rate. She denies any symptoms associated with that such as chest pain, shortness of breath. She has no cough. Denies any abdominal pain. The patient also has right hydronephrosis for which Urology has seen the patient. They will plan a cystoscopy when the patient's general medical condition is stable. Meanwhile, the patient was transferred to telemetry, started on Cardizem drip. Cardiology will see the patient. The patient's thyroid functions normal. Echocardiogram does reveal adequate ejection fraction and left ventricular function. The cholecystitis is stable. REVIEW OF SYSTEMS: NEURO: Denies any headaches, dizziness. PSYCH: No anxiety. CARDIAC: No chest pain, angina, palpitations. RESPIRATORY: Denies shortness of breath, cough, hemoptysis. GI: No nausea, vomiting, abdominal pain, diarrhea. : No symptoms of dysuria, hematuria. EXTREMITIES: Denies pain. Has chronic stiffness. CONSTITUTIONAL: No fever chills. PHYSICAL EXAMINATION: Pleasant female in no distress. VITAL SIGNS: Temperature 97.6, pulse 126, blood pressure 130/75, pulse ox 93% on room air. HEENT: Normocephalic. NECK: Decreased range of motion. CHEST: Clear to auscultation. CARDIAC: Normal S1, S2 with no gallops. Irregular rhythm. Systolic murmur 2/6 left sternal border. ABDOMEN: Soft. Bowel sounds present. EXTREMITIES: Trace edema of the ankles. NEUROLOGIC: Awake, alert, oriented, well-coordinated movements. LABORATORY ASSESSMENT: Electrolytes, BUN, creatinine normal. ASSESSMENT: 1. Atrial fibrillation, new onset with rapid ventricular rate. 2. Acute cholecystitis, resolving. 3. Right hydronephrosis. 4. Acute congestive cardiac failure secondary to diastolic dysfunction, resolved. 5. Rheumatoid arthritis. 6. Diabetes mellitus. 7. Fluctuating blood sugars. PLAN: Continue present medical regimen. Patient's condition discussed with the patient and daughter over the phone. The patient will be on Cardizem drip. Cardiology to evaluate. MMODL / IJN: [id number] /
[2018-03-17 05:48] LABS: Glucose,Whole Blood 103 mg/dL (75-99)
[2018-03-17] MEDS: DILTIAZEM 50 MG in SODIUM CHLORIDE 0.9% 40 ML IV SCH ×2 (06:03→06:04)
[2018-03-17] MEDS: PANTOPRAZOLE 40 MG TABLET PO SCH (06:47)
[2018-03-17] MEDS ORDERED: METOPROLOL TARTRATE 50 MG TAB PO SCH (09:00)
[2018-03-17] MEDS: INSULIN ASPART 100 UNIT/ML 1 ML 10 ML VIAL SQ SCH ×4 (09:37→22:05)
[2018-03-17] MEDS: BRIMONIDINE TARTRATE 0.2% DROPS 5 ML BTL BOTH EYES SCH ×2 (09:47→19:34)
[2018-03-17] MEDS: TIMOLOL 0.5% OPHTH DROPS 5 ML BTL BOTH EYES SCH ×2 (09:49→19:34)
[2018-03-17] MEDS: GLIMEPIRIDE 1 MG TAB PO SCH ×2 (09:49→22:04)
[2018-03-17] MEDS: ENOXAPARIN 60 MG/0.6 ML SYRINGE SQ SCH ×2 (09:51→22:04)
--- NOTE | 2018-03-17 11:44 | CONS ---
CONSULTATION Bita Mayfield is an 87-year-old female who presented with acute cholecystitis. She was found to be in atrial fibrillation with a RVR and was transferred to [facility] yesterday by Dr. Luna. I did speak to Dr. Luna about this. This morning, she is sitting comfortably in bed. She denies any chest discomfort. No undue shortness of breath. Heart rates are better controlled on IV diltiazem. She denies any new chest pain or shortness of breath. REVIEW OF SYSTEMS: No fever, chills, or rigors. No cough or expectoration. No nausea, vomiting, diarrhea, hematuria. She does have a right hydronephrosis but no dysuria or hematuria. No constitutional symptoms. EXAMINATION: On examination her temperature is 97.7, pulse rate is now in the 50s and 60s, previously was 126 beats per minute. Blood pressure 130/70 mmHg, pulse ox 93%. Breath sounds are reduced bilaterally. Heart sounds, there is systolic murmur at left sternal border. Abdomen is soft, nontender. Extremities are warm, no edema. LABS: Labs are within normal limits study. 12-lead ECG shows atrial fibrillation with RVR now. The telemetry shows atrial fibrillation with a controlled ventricular response on IV Cardizem. IMPRESSION: 1. New onset atrial fibrillation, newly diagnosed, with a RVR, currently IV Cardizem for rate control. 2. Acute cholecystitis, resolved. 3. Acute congestive heart failure, diastolic dysfunction, resolved. 4. Rheumatoid arthritis. SUGGEST: Continue IV Cardizem and once it is determined that she does not need surgery, she should be anticoagulated. Oral medications for rate control have begun. I believe she is on Lovenox and metoprolol 50 mg twice daily. MMODL / IJN: [id number] /
[2018-03-17 12:19] LABS: Glucose,Whole Blood 356 mg/dL (75-99)
[2018-03-17 17:06] LABS: Glucose,Whole Blood 165 mg/dL (75-99)
[2018-03-17] MEDS: METOPROLOL TARTRATE 50 MG TAB PO SCH (19:32)
[2018-03-17 20:45] LABS: Glucose,Whole Blood 284 mg/dL (75-99)
[2018-03-17] MEDS: INSULIN DETEMIR 100 UNIT/ML 10 ML VIAL SQ SCH (22:04)
[2018-03-17] MEDS: LATANOPROST 0.005% OPHTH DROPS 2.5 ML BTL BOTH EYES SCH (22:05)
[2018-03-18 06:05] LABS: Glucose,Whole Blood 115 mg/dL (75-99)
[2018-03-18] MEDS: PANTOPRAZOLE 40 MG TABLET PO SCH (06:30)
[2018-03-18] MEDS: METOPROLOL TARTRATE 50 MG TAB PO SCH ×3 (06:32→21:04)
[2018-03-18] MEDS: INSULIN ASPART 100 UNIT/ML 1 ML 10 ML VIAL SQ SCH ×4 (07:32→20:51)
[2018-03-18] MEDS: ENOXAPARIN 60 MG/0.6 ML SYRINGE SQ SCH (08:36)
[2018-03-18] MEDS: TIMOLOL 0.5% OPHTH DROPS 5 ML BTL BOTH EYES SCH ×2 (08:36→17:49)
[2018-03-18] MEDS: GLIMEPIRIDE 1 MG TAB PO SCH ×2 (08:37→21:03)
[2018-03-18] MEDS: BRIMONIDINE TARTRATE 0.2% DROPS 5 ML BTL BOTH EYES SCH ×2 (08:37→17:49)
[2018-03-18] MEDS: INSULIN DETEMIR 100 UNIT/ML 10 ML VIAL SQ SCH ×2 (08:40→21:23)
--- NOTE | 2018-03-18 09:04 | P.PN ---
Subjective Progress Note Date: 03/18/18 This 87-year-old female was admitted to the hospital with acute on chronic cholecystitis with obstructive jaundice. 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 Patient jaundice is resolved her general status improved relating to the cholecystitis however the patient developed congestive cardiac failure acute secondary to diastolic dysfunction which improved or resolved. The patient subsequently developed tachycardia with rate of 146 suspect atrial flutter 2:1 . This was intermittent. This resolved and patient went into atrial fibrillation. The patient has been on this floor with atrial flutter initially on Cardizem drip. The rate was controlled so she was switched to metoprolol. She did have another burst of rapid ventricular rate. Her menopause been increased. Last night she developed a significant pause with them 9.6 and 3.6 second pauses. The patient is in sinus rhythm this morning. She had been on sinus rhythem prior to hospitalization. The patient had been in atrial fibrillation prior to conversion and going into this sinus arrest. Patient is feeling much improved she is eating better and limitations in bed no fever chills breathing is stable. He does manager cardiac cath strips with the tuber machine operator Dr. Olvera who feels patient's current require a pacemaker. We will discuss this with the daughter. REVIEW OF SYSTEMS: Neuro: Denies any headaches dizziness. Psych: Denies anxiety depression feels oriented. Cardiac: Denies chest pain and angina palpitations. Respiratory: Denies shortness of breath cough. GI: Denies nausea vomiting or abdominal pain. No diarrhea or constipation, no bowel movement yet. : Denies dysuria hematuria. Extremities: Chronic arthritic joint pain trace chronic edema in ankles Skin: Intact. Constitutional: No fever, chills. Objective - Vital Signs Vital signs: Vital Signs Temp 97.8 F 03/18/18 04:00 Pulse 98 03/18/18 04:00 Resp 18 03/18/18 04:00 BP 134/58 03/18/18 04:00 Pulse Ox 93 L 03/18/18 04:00 Intake & Output 03/17/18 03/18/18 03/18/18 18:59 06:59 18:59 Intake Total 410 Output Total 1100 1200 Balance -690 -1200 Weight 53.5 kg 53.3 kg Intake: Oral 410 Output: Urine 1100 1200 Other: Voiding Method Bedside Commode Bedside Commode # Voids 1 1 1 # Bowel Movements 1 PHYSICAL EXAMINATION: Cooperative, at present in no acute distress. HEENT: Decreased range of motion no JVD Chest: Clear to auscultation Cardiac: Normal S1-S2 no gallops systolic 2/6 left sternal border. Abdomen: Soft bowel sounds present. Extremities: Trace edema no tenderness Neurologically: Awake alert oriented to person moves both upper and lower extremities with limitations due to rheumatoid arthritis - Labs CBC & Chem 7: 03/15/18 08:34 03/16/18 08:25 Labs: Abnormal Lab Results - Last 24 Hours (Table) 03/17/18 03/17/18 03/17/18 Range/Units 12:06 16:39 20:42 POC Glucose (mg/dL) 356 H 165 H 284 H (75-99) mg/dL 03/18/18 Range/Units 06:03 POC Glucose (mg/dL) 115 H (75-99) mg/dL Assessment and Plan Assessment: Assessment and plan 1. A. fibrillation converted to sinus 2. 9.6 second sinus pause 3. Suspect sick sinus syndrome 4. Acute cholecystitis resolved 5. Right hydronephrosis 6. Rheumatoid arthritis Plan continue present medical regimen. Patient's condition discussed with the patient, reviewed rhythm strips with the tuber machine operator at [facility] feels patient's condition a pacemaker. I did discuss this with the daughter over the phone Dr. Olvera we'll discuss this with patient and family later.
--- NOTE | 2018-03-18 09:39 | PN ---
PROGRESS NOTE ATTENDING PHYSICIAN: Dr. Nallely Luna. DATE OF SERVICE: 03/17/2018. CHIEF COMPLAINT: Re-evaluation. HISTORY OF PRESENT ILLNESS: An 87-year-old female was admitted to the hospital with acute cholecystitis. The patient also noted to have right hydronephrosis. She was doing well, was planned for discharge when she went into SVT with a rate of 140s, possible atrial flutter 2-1. The patient subsequently went into atrial fibrillation. The patient has been on Cardizem drip with rate better controlled. REVIEW OF SYSTEMS: NEURO: Denies any headaches, dizziness. Psych: No anxiety. CARDIAC: No chest pain, angina, palpitation. RESPIRATORY: No shortness of breath, cough. GI: No nausea, vomiting, abdominal pain, diarrhea. : No symptoms of dysuria, hematuria, urgency, frequency. EXTREMITIES: Denies pain, edema. CONSTITUTIONAL: No fever or chills. PHYSICAL EXAMINATION: Pleasant female in no distress. Vital signs reveals temperature 97.8, pulse 75, respirations 16, blood pressure 114/47, pulse ox 93% on room air. HEENT: Normocephalic. NECK: No JVD. Decreased range of motion. CHEST: Clear to auscultation. CARDIAC: Normal S1, S2 with no gallop. Systolic murmur 2/6 left sternal border. Irregular rhythm. ABDOMEN: Soft. Bowel sounds present. EXTREMITIES: Reveal trace edema. NEUROLOGICALLY: Awake, alert, oriented, well-coordinated movements which generalized decreased range of motion. LABORATORY ASSESSMENT: Blood sugars with a blood sugar of 50 a.c. lunch yesterday then 328 at supper time. This morning was 103. ASSESSMENT: 1. Acute cholecystitis, improving. 2. Atrial fibrillation, rapid ventricular rate, resolved, rate controlled now. 3. Hyperglycemia and diabetes mellitus. 4. Right hydronephrosis. 5. Rheumatoid arthritis. PLAN: Continue present medical regimen. Patient's Cardizem drip to be discontinued. Prognosis remains guarded. Condition discussed with the patient. MMODL / IJN: [id number] /
[2018-03-18 11:58] LABS: Glucose,Whole Blood 245 mg/dL (75-99)
--- NOTE | 2018-03-18 12:09 | PN ---
PROGRESS NOTE Bita Mayfield is an 87-year-old female who presented with atrial fibrillation and she was rate controlled and was doing well and she was switched to oral medications. However, last night she converted to sinus rhythm and she had a very long post conversion pause of almost 4.5 seconds. She was lying in bed at that time. Today on examination, she is afebrile. Temp 97.5 degrees, pulse rate in the 70s. She is in sinus rhythm now. Blood pressure 134/58 mmHg. Head and neck examination is normal. Heart sounds S1, S2 are soft. Extremities are warm. IMPRESSION: 1. Paroxysmal atrial fibrillation with a RVR that was initially rate controlled. 2. Long post conversion pause consistent with sick sinus syndrome. 3. Tachy-trinity syndrome. SUGGEST: Implantation of a permanent pacemaker would be appropriate at this point. Potassium is normal. TSH is normal. This will allow for continuation of drug therapy for rate control of atrial fibrillation when she has paroxysmal atrial fibrillation. The risk is that when she has paroxysmal atrial fibrillation, she will develop post- conversion pause that could predispose her to syncope. MMODL / IJN: [id number] /
[2018-03-18 12:36] LABS: Anisocytosis Slight; Basophils # (A) 0.1 k/uL (0-0.2); Basophils % (A) 1 %; Eosinophils # (A) 0.2 k/uL (0-0.7); Eosinophils % (A) 3 %; HCT 29.1 % (34.0-46.0); Lymphocytes % (A) 24 %; MCH 32.1 pg (25.0-35.0); MCHC 32.7 g/dL (31.0-37.0); MCV 98.1 fL (80.0-100.0); Macrocytosis Slight; Mean Platelet Volume 6.8; Monocytes # (A) 0.8 k/uL (0-1.0); Monocytes % (A) 10 %; Neutrophils # (A) 4.8 k/uL (1.3-7.7); Neutrophils % (A) 60 %; Platelet Count 321 k/uL (150-450); RBC 2.96 m/uL (3.80-5.40); RDW 16.1 % (11.5-15.5); WBC 8.1 k/uL (3.8-10.6)
[2018-03-18 12:37] LABS: HGB 9.5 gm/dL (11.4-16.0)
[2018-03-18 12:38] LABS: Calcium 9.3 mg/dL (8.4-10.2); Potassium 4.7 mmol/L (3.5-5.1)
[2018-03-18 16:29] LABS: Glucose,Whole Blood 151 mg/dL (75-99)
[2018-03-18 20:45] LABS: Glucose,Whole Blood 86 mg/dL (75-99)
[2018-03-18] MEDS: LATANOPROST 0.005% OPHTH DROPS 2.5 ML BTL BOTH EYES SCH (21:04)
[2018-03-19 02:11] LABS: Glucose,Whole Blood 158 mg/dL (75-99)
[2018-03-19] MEDS ORDERED: ceFAZolin IN SWFI 2 GM/20 ML SYRINGE IVP ONE ×2 (06:00→10:30)
[2018-03-19] MEDS ORDERED: ceFAZolin 1,000 MG in SODIUM CHLORIDE 0.9% IRRIGATIO 250 ML IRRIGATION ONE ×2 (06:00→10:30)
[2018-03-19] MEDS ORDERED: SODIUM CHLORIDE 0.9% 1,000 ML IV SCH ×2 (06:00)
[2018-03-19 06:21] LABS: Glucose,Whole Blood 158 mg/dL (75-99)
[2018-03-19] MEDS: GLIMEPIRIDE 1 MG TAB PO SCH ×2 (06:31→20:47)
[2018-03-19] MEDS: INSULIN DETEMIR 100 UNIT/ML 10 ML VIAL SQ SCH ×2 (06:32→20:54)
[2018-03-19] MEDS: INSULIN ASPART 100 UNIT/ML 1 ML 10 ML VIAL SQ SCH ×4 (06:34→20:57)
[2018-03-19] MEDS: BRIMONIDINE TARTRATE 0.2% DROPS 5 ML BTL BOTH EYES SCH ×2 (06:36→16:56)
[2018-03-19] MEDS: TIMOLOL 0.5% OPHTH DROPS 5 ML BTL BOTH EYES SCH ×2 (06:36→16:56)
[2018-03-19] MEDS: PANTOPRAZOLE 40 MG TABLET PO SCH (06:36)
[2018-03-19] MEDS: METOPROLOL TARTRATE 50 MG TAB PO SCH ×2 (06:36→20:48)
[2018-03-19] MEDS ORDERED: IV FLUID CONTINUATION 975 ML IV ONE (09:35)
[2018-03-19] MEDS ORDERED: IV FLUID CONTINUATION 750 ML IV ONE (09:35)
[2018-03-19] MEDS ORDERED: IOPAMIDOL-250 50ML BTL IV ONE (09:54)
[2018-03-19] MEDS ORDERED: IOPAMIDOL-370 50ML BTL INJ ONE (09:54)
[2018-03-19] MEDS ORDERED: LIDOCAINE 1% INJ 10MG/ML (20 ML MDV) ONE ×2 (09:58)
[2018-03-19] MEDS ORDERED: MIDAZOLAM 2 MG/2 ML VIAL ONE (10:13)
[2018-03-19] MEDS ORDERED: MIDAZOLAM 2 MG/2 ML VIAL IV ONE (10:15)
[2018-03-19] MEDS ORDERED: LIDOCAINE 1% INJ 10MG/ML (20 ML MDV) SQ ONE ×2 (10:16→10:18)
--- NOTE | 2018-03-19 10:55 | CDI ---
Last Revision, September 2017 Documentation Clarification Form Date: 03/19/18 From: Leticia Alaniz RN, CCDS Admit Date: 03/10/2018 6:19:00 PM Patient Name: Bita Mayfield Visit Number: [id number] Discharge Date: ATTENTION: The Clinical Documentation Specialists (CDI) and [facility] Coding Staff appreciate your assistance in clarifying documentation. Please respond to the clarification below the line at the bottom and electronically sign. The CDI & [facility] Coding staff will review the response and follow-up if needed. Please note: Queries are made part of the Legal Health Record. If you have any questions, please contact the author of this message via ITS. Dr. Nigel Luna Atrial Flutter is documented in your progress notes on 03/18/18 History/Risk factors: Rheumatoid arthritis, Clinical Indicators: progress notes indicate: She was doing well, planned for discharge when she went into SVT with rate of 140's, possible atrial flutter 2: 1. This was intermittent. The patient subsequently went into atrial fibrillation EKG/telemetry: Atrial Fibrillation Treatment: Telemetry monitoring Bud barrera Cardiology Consults: Paroxysmal atrial fibrillation with a RVR that was initially rate controlled. Long post conversion pause consistent with sick sinus syndrome, tachy-trinity syndrome. In your professional opinion, in order to capture the severity of condition; can you please clarify the type of atrial flutter if known? Typical/Type I Atypical/Type II Other, please specify Unable to determine Please continue to document in your progress notes and discharge summary in order to capture severity of illness and risk of mortality. Include clinical findings that support your diagnosis. MTDD
--- NOTE | 2018-03-19 10:58 | P.PCN ---
Preoperative Diagnosis: Patient underwent EP procedure/single-chamber pacemaker implant under conscious sedation/moderate sedation, monitoring of the level of consciousness and physiologic parameters including but not limited to vital signs and oxygenation. Patient tolerated the procedure well without any acute complications. Start time: 1011 Stop time: 1048 37 minutes
[2018-03-19] MEDS ORDERED: HYDROcodone/APAP 5-325MG 1 EACH TAB PO PRN (10:59)
[2018-03-19] MEDS ORDERED: ACETAMINOPHEN TAB 325 MG TAB PO PRN (10:59)
--- NOTE | 2018-03-19 11:31 | CE ---
CARDIAC ELECTROPHYSIOLOGY REPORT Bita Mayfield is an 87-year-old female who has paroxysmal atrial fibrillation. When she converted to sinus rhythm, she had a long pause of 4.5 to 5 seconds, post-conversion pause indicator of underlying sick sinus syndrome. On speaking to her daughter, the patient has had recurrent dizzy spells for unclear reasons. Patient was brought to the EP lab in a fasting state. Written informed consent was obtained prior to the procedure. The left shoulder area was prepped and draped as per protocol and 1% lidocaine was used for local anesthesia. A 4 cm incision was made parallel to the deltopectoral groove, about 1.5 cm medial to it the incision was carried down to the level of the pectoralis muscle. A subfascial pocket was made. Hemostasis was assured. The left axillary vein was accessed to a single point and via appropriately-sized introducer sheath a Medtronic tined lead was positioned in the right heart in the RV apex. This was a Medtronic model #4074, 58 cm in length and serial #[id number]. R-waves 8.6 mV, pacing impedance 1135 ohms, pacing threshold 0.5 V at 0.5 milliseconds. A ten volt test was negative. The lead was secured to the underlying pectoralis fascia using 2 nonabsorbable sutures. Pocket was irrigated with antibiotic solution. The lead was connected to the generator (Medtronic Advisa SR MRI, model #A3SR01, serial #[id number]). The lead and the generator were then placed in the subfascial pocket. The wound was closed in 3 layers and dressed per protocol. RESULT: Successful single-chamber pacemaker implantation for backup pacing during episodes of sudden bradycardia and sudden pauses when she has a post-conversion pauses to avoid syncope. I would also recommend anticoagulation for stroke prevention and rate control for paroxysmal atrial fibrillation. MMODL / IJN: [id number] /
[2018-03-19] MEDS ORDERED: ACETAMINOPHEN IV (For NPO) 1,000 MG in EMPTY BAG 1 BAG IVPB ONE (12:00)
[2018-03-19 12:06] LABS: Glucose,Whole Blood 150 mg/dL (75-99)
[2018-03-19 15:14] VITALS: BMI 19.5
[2018-03-19 16:40] LABS: Glucose,Whole Blood 275 mg/dL (75-99)
[2018-03-19] MEDS: ceFAZolin IN SWFI 2 GM/20 ML SYRINGE IVP SCH ×2 (16:51→22:53)
[2018-03-19] MEDS: LATANOPROST 0.005% OPHTH DROPS 2.5 ML BTL BOTH EYES SCH (20:48)
[2018-03-19 20:56] LABS: Glucose,Whole Blood 168 mg/dL (75-99)
[2018-03-19 21:23] VITALS: RESP 16
--- NOTE | 2018-03-19 23:58 | PN ---
PROGRESS NOTE ATTENDING PHYSICIAN: Dr. Santos Luna. CHIEF COMPLAINT: Re-evaluation. HISTORY OF PRESENT ILLNESS: This elderly female is 87 years of age who was admitted to the hospital for acute cholecystitis and obstructive jaundice. The patient had an attempted ERCP, which revealed significantly narrow duodenum. ERCP was not possible. The patient's obstructive jaundice resolved. The patient's ultrasound and CT scans have shown the patient has a contracted gallbladder with numerous bowel sounds. She would be advised to have a cholecystectomy. The patient's conditions has been discussed with the patient and daughter. Dr. Chan had been on the case. The plan was the patient to regain her strength back, improve her status with a magnetic resonance ERCP; however with the pacemaker now the patient will not be able to have that. The patient can have subsequent . REVIEW OF SYSTEMS: NEURO: Denies any headaches or dizziness. PSYCH: No anxiety. CARDIAC: Denies chest pain, angina, palpitation. RESPIRATORY: Denies shortness of breath, cough. GI: No nausea, vomiting, abdominal pain, diarrhea. : No symptoms of dysuria, hematuria, urgency, frequency. EXTREMITIES: Denies pain, edema. CONSTITUTIONAL: No fever or chills. PHYSICAL EXAMINATION: Pleasant female at present in no distress. Vital signs reveals temperature 98.3, pulse 59, respirations 14, blood pressure 106/60. HEENT: Normocephalic. NECK: Decreased range of motion. No JVD. CHEST: Clear to auscultation. CARDIAC: Normal S1, S2 with no gallop. Systolic murmur 2/6 left sternal border. Rhythm is regular. ABDOMEN: Soft. No palpable masses. Bowel sounds normal. No organomegaly. No abdominal bruits. No tenderness. Extremities reveal trace edema. NEUROLOGIC: Awake, alert, oriented, well-coordinated movements both upper extremities. Lower extremities, generalized decreased range of motion due to rheumatoid arthritis. LABORATORY ASSESSMENT: Blood sugars, which are mildly elevated. The patient had significant sinus pauses yesterday and undergone plan for a pacemaker. The patient did undergo a permanent pacemaker placement. The patient's condition had been discussed with the daughter yesterday. The patient's condition was discussed Dr. Olvera regarding the need for pacemaker yesterday. The patient's general condition is guarded. ASSESSMENT: 1. Sick sinus syndrome. 2. Acute cholecystitis, resolved. 3. Obstructive jaundice, resolved. 4. Rheumatoid arthritis. 5. Diabetes mellitus. 6. Paroxysmal atrial fibrillation. PLAN: Continue present medical regimen. The patient may not be the best candidate for anticoagulation on a long-term basis. He has had episodes of falls. However, meanwhile we will continue the patient's present regimen. Upon discharge she will continue Eliquis 2.5 mg b.i.d. The patient's condition will be discussed with the daughter. Prognosis guarded. MMODL / IJN: [id number] /
[2018-03-20] MEDS: ceFAZolin IN SWFI 2 GM/20 ML SYRINGE IVP SCH ×2 (04:47→11:18)
[2018-03-20 05:37] LABS: Glucose,Whole Blood 75 mg/dL (75-99)
[2018-03-20] MEDS: INSULIN ASPART 100 UNIT/ML 1 ML 10 ML VIAL SQ SCH (05:40)
[2018-03-20] MEDS: PANTOPRAZOLE 40 MG TABLET PO SCH (06:25)
--- NOTE | 2018-03-20 08:01 | XR ---
EXAMINATION TYPE: XR chest 2V DATE OF EXAM: 03/20/2018 COMPARISON: Chest x-ray from 6 days ago HISTORY: Arrhythmia status post pacemaker TECHNIQUE: Frontal and lateral views of the chest are obtained. FINDINGS: The osseous structures remain demineralized. There is persistent cardiomegaly with atheros clerotic thoracic aorta. There is new single lead pacemaker terminating in right ventricle. There is moderate to severe biapical pleural/parenchymal scarring. There is stable right basilar opac ity felt to reflect small to moderate-sized right effusion and associated right basilar atelectasis a nd/or infiltrate. There is persistent left basilar opacity bulge reflect atelectasis and/or infiltrat e and probable small left pleural effusion. Reticular interstitial prominence bilaterally favors mode rate central congestion, underlying fibrosis is difficult to exclude without older comparison. IMPRESSION: New single-lead pacemaker terminating in right ventricle. No evidence of radiographic co mplication related to procedure. Other findings stable as detailed above.
[2018-03-20 11:07] LABS: Glucose,Whole Blood 187 mg/dL (75-99)
[2018-03-20] MEDS: METOPROLOL TARTRATE 50 MG TAB PO SCH (11:18)
[2018-03-20] MEDS: INSULIN DETEMIR 100 UNIT/ML 10 ML VIAL SQ SCH (11:18)
[2018-03-20] MEDS: GLIMEPIRIDE 1 MG TAB PO SCH (11:18)
[2018-03-20] MEDS: BRIMONIDINE TARTRATE 0.2% DROPS 5 ML BTL BOTH EYES SCH (11:18)
[2018-03-20] MEDS: TIMOLOL 0.5% OPHTH DROPS 5 ML BTL BOTH EYES SCH (11:19)
--- NOTE | 2018-03-20 12:20 | P.PN ---
Subjective Progress Note Date: 03/20/18 Principal diagnosis: Status post pacemaker implantation This an 87-year-old female admitted to the hospital with acute on chronic cholecystitis with obstructive jaundice. She was also noted to have a duodenal stricture and thus ERCP was not feasible. The jaundice has resolved and her general status is improving lading to the cholecystitis, patient subsequent to this developed congestive cardiac failure which has also improved. Patient subsequent to that developed tachycardia with a rate of 146, likely atrial flutter which was intermittent. This was resolved and the patient went into atrial fibrillation. It was noted that she had a significantly positive for this reason she underwent implantation of a permanent pacemaker yesterday by Dr. Olvera. The device was interrogated this morning and is functioning appropriately. Chest x-ray was reviewed and did not reveal any evidence of radiographic complication related to the procedure. The patient was seen and examined this morning, she feels well, anticipating discharge home today. Objective - Vital Signs Vital signs: Vital Signs Temp 97.9 F 03/20/18 04:00 Pulse 66 03/20/18 04:00 Resp 16 03/20/18 04:00 BP 147/71 03/20/18 04:00 Pulse Ox 98 03/20/18 04:00 Intake & Output 03/19/18 03/20/18 03/20/18 18:59 06:59 18:59 Intake Total 835 440 480 Output Total 1200 900 600 Balance -365 -460 -120 Weight 53.3 kg 54 kg Intake: IV 275 440 .9 30 Invasive Line 3 10 acetaminphen 400 Oral 560 480 Output: Urine 1200 900 600 Other: Voiding Method Bedside Commode Bedside Commode # Voids 1 - Exam PHYSICAL EXAMINATION: GENERAL: Pleasant 87-year-old female in no apparent distress at the time of my examination. HEENT: Head is atraumatic, normocephalic. Pupils equal, round. Sclera anicteric. Conjunctiva are clear. Mucous membranes of the mouth are moist. Neck is supple. There is no elevated jugular venous pressure.] bruit is heard. HEART EXAMINATION: Heart S1-S2 a systolic murmur is heard. Site of pacemaker implantation, dressing is dry and intact. CHEST EXAMINATION: Lungs are clear to auscultation and precussion. No chest wall tenderness is noted on palpation or with deep breathing.Site of pacemaker implantation, dressing is dry and intact. ABDOMEN: Soft, nontender. Bowel sounds are heard. No organomegaly noted. EXTREMITIES: 2+ peripheral pulses with trace evidence of peripheral edema and no calf tenderness noted. Upper and lower extremities, deformaties secondary to rheumatoid arthritis NEUROLOGIC patient is awake, alert and oriented -3. . - Labs CBC & Chem 7: 03/18/18 11:52 03/18/18 11:52 Labs: Abnormal Lab Results - Last 24 Hours (Table) 03/19/18 03/19/18 03/20/18 Range/Units 16:31 20:53 11:02 POC Glucose (mg/dL) 275 H 168 H 187 H (75-99) mg/dL Assessment and Plan Plan: Assessment and plan #1 paroxysmal atrial fibrillation #2 9.6 second sinus, status post implantation of permanent pacemaker #3 acute cholecystitis, resolved #4 rheumatoid arthritis Plan From cardiology's perspective, patient may be able to be discharged home today. She will follow-up in the device clinic in 5 days. Follow-up appointment with Dr. Olvera in the office in 3 months. DNP note has been reviewed, I agree with a documented findings and plan of care. Patient was seen and examined.
[2018-03-20 13:08] VITALS: PULSE 67
[2018-03-20 13:11] VITALS: BP 155/71; TEMP 98
--- NOTE | 2018-03-24 13:09 | P.DS ---
Providers Date of admission: 03/10/18 18:19 Attending physician: Nigel Luna Consults: 03/10/18 18:56 Consult Physician Stat Consulting Provider: Alexys Chan Consult Reason/Comments: acute cholecystitis, acute duadinitis Do you want consulting provider notified?: Yes 03/15/18 22:50 Consult Physician Urgent Consulting Provider: Pedro Valladares Consult Reason/Comments: rt hydro Do you want consulting provider notified?: Yes, Notify in am 03/16/18 16:57 Consult Physician Routine Consulting Provider: Clay Olvera Consult Reason/Comments: a fib Do you want consulting provider notified?: Yes, Notify in am Primary care physician: Nigel Luna Hospital Course: This 87-year-old female was admitted to the hospital with inability to eat vomiting generalized weakness. Patient's noted to have evidence of an acute episode of obstructive jaundice with no pain. The patient in view of this is admitted to the hospital started on IV hydration and antibiotics. An echocardiogram done reveals cholelithiasis with a contracted gallbladder. Is also intrahepatic dilated biliary ducts. In view of this she was consulted to be seen by both Dr. truong from the surgical service and Dr. Ballard for the gastroenterology service. She did take the patient for an ERCP however this was not possible as the patient had a significant stricture of the duodenum. The visualized lining appeared to be fairly elevated duodenal biopsies revealed mild duodenitis with reactive CHANGES AND INCLUDING LOSS OF CUSTODIAN SUPERVISOR BUT NEGATIVE FOR MALIGNANCY. The patient's renal function remains stable hepatic function improved to the point the patient was almost back to normal range. Dr. truong felt that was the patient's general condition stabilized and improved nutritionally he would operate. You expected this to trend up as an open cholecystectomy. The plan was to have a magnetic resonance ERCP however the patient ended up with a pacemaker and we will find out if she still can have the ERCP. Other alternative would be intraoperative cholangiogram. Patient on the floor became quite short of breath and hypoxic. She didn't complain about it patient was felt to be in acute congestive cardiac failure secondary to diastolic dysfunction and fluid overload. Patient was diuresed and her symptoms resolved within the day. Patient was planned for discharge however that morning she was noted to be tachycardic rate of 140 /150. It was felt that the patient probably had atrial flutter 2-1. Patient's weight continued to very. She subsequently went into atrial fibrillation. She was placed on IV Cardizem drip and anticoagulated with Lovenox. Patient was placed in the bed up walker she did convert however she also had gone into sinus arrest pauses of 4.8 seconds and 1.8 seconds at the time of conversion. It was felt by the rhit that she needed a pacemaker otherwise she could have a syncopal episode which could precipitate a fall and a significant injury patient did undergo permanent pacemaker placement. Patient remaining stable she was discharged home. Final diagnosis to include 1. Acute obstructive jaundice 2. Cholelithiasis 3. Duodenal stricture 4. Atrial fibrillation rapid ventricular rate 5. Atrial flutter typical 2-1 block 6. Sinus pauses 7. Sick sinus syndrome 8. Rheumatoid arthritis 9. Diabetes mellitus 10. Acute congestive cardiac failure secondary to diastolic dysfunction 11. Anemia of chronic disease secondary to rheumatoid arthritis Patient Condition at Discharge: Good Plan - Discharge Summary Discharge Rx Participant: No New Discharge Prescriptions: New Acetaminophen Tab [Tylenol] 650 mg PO Q6HR PRN tab PRN Reason: Mild Pain Or Fever > 100.5 Glimepiride [Amaryl] 1 mg PO BID tab Pantoprazole [Protonix] 40 mg PO AC-BRKFST #30 tablet. Acetaminophen Tab [Tylenol] 650 mg PO Q6HR PRN tab PRN Reason: Mild Pain Apixaban [Eliquis] 2.5 mg PO BID #60 tab Metoprolol Tartrate [Lopressor] 50 mg PO BID #60 tab Continue Timolol 0.5% Ophth Soln [Timoptic 0.5% Ophth Soln] 1 drop BOTH EYES BID@0900, 1800 Latanoprost [Xalatan 0.005%] 1 drop BOTH EYES HS@2200 Brimonidine Tartrate [Alphagan P 0.2% Ophth Soln] 1 drops BOTH EYES BID@0900, 1800 Discontinued Methotrexate Sodium [Methotrexate] 10 mg PO DELGADO MDD SEE COMMENTS Glimepiride [Amaryl] 1 mg PO AC-BID Discharge Medication List Brimonidine Tartrate [Alphagan P 0.2% Ophth Soln] 1 drops BOTH EYES BID@0900, 1800 03/10/18 [History] Latanoprost [Xalatan 0.005%] 1 drop BOTH EYES HS@2200 03/10/18 [History] Timolol 0.5% Ophth Soln [Timoptic 0.5% Ophth Soln] 1 drop BOTH EYES BID@0900, 1800 03/10/18 [History] Acetaminophen Tab [Tylenol] 650 mg PO Q6HR PRN tab 03/14/18 [Rx] Glimepiride [Amaryl] 1 mg PO BID tab 03/14/18 [Rx] Pantoprazole [Protonix] 40 mg PO AC-BRKFST #30 tablet. 03/14/18 [Rx] Acetaminophen Tab [Tylenol] 650 mg PO Q6HR PRN tab 03/20/18 [Rx] Apixaban [Eliquis] 2.5 mg PO BID #60 tab 03/20/18 [Rx] Metoprolol Tartrate [Lopressor] 50 mg PO BID #60 tab 03/20/18 [Rx] Follow up Appointment(s)/Referral(s): Nigel Luna MD [Primary Care Provider] - 03/23/18 2:15 pm Betsy Ballard MD [STAFF PHYSICIAN] - 04/18/18 2:00 pm Ambulatory/Diagnostic Orders: Miscellaneous Radiology Order [RAD.AMB] Time Frame: 1 Week, Location: Determined By Patient Patient Instructions/Handouts: Pacemaker (DC), Cholecystitis (GEN), Low Fat Diet (DC), Fall Prevention for Older Adults (DC), Safe Use of Anticoagulants (DC ) Discharge Disposition: HOME WITH HOME HEALTH SERVICES
== END 2018-03-20 12:46 | disposition home health service (06) | DRG 444 ==
LOC: EC 14:02 → 5MS5E 18:19 → 6SEL 03-16 09:14
PROVIDERS: ADMIT Internal Medicine; ATTEND Internal Medicine
PROC: 0DB98ZX Excision of Duodenum, Via Natural or Artificial Opening Endoscopic, Diagnostic (ICD-10-PCS; principal; 2018-03-10)
PROC: 0JH604Z Insertion of Pacemaker, Single Chamber into Chest Subcutaneous Tissue and Fascia, Open Approach (ICD-10-PCS; 2018-03-19)
PROC: 02HK3JZ Insertion of Pacemaker Lead into Right Ventricle, Percutaneous Approach (ICD-10-PCS; 2018-03-19)
DX: K80.67 Calculus of gallbladder and bile duct with acute and chronic cholecystitis with obstruction (principal); K85.10 Biliary acute pancreatitis without necrosis or infection; I50.33 Acute on chronic diastolic (congestive) heart failure; I47.1 Supraventricular tachycardia; I48.92 Unspecified atrial flutter; K31.5 Obstruction of duodenum; N13.30 Unspecified hydronephrosis; I48.3 Typical atrial flutter; D63.8 Anemia in other chronic diseases classified elsewhere; E11.649 Type 2 diabetes mellitus with hypoglycemia without coma; E11.65 Type 2 diabetes mellitus with hyperglycemia; I11.0 Hypertensive heart disease with heart failure; I48.0 Paroxysmal atrial fibrillation; I49.5 Sick sinus syndrome; J84.10 Pulmonary fibrosis, unspecified; K22.2 Esophageal obstruction; K29.80 Duodenitis without bleeding; K44.9 Diaphragmatic hernia without obstruction or gangrene; M06.9 Rheumatoid arthritis, unspecified; M81.0 Age-related osteoporosis without current pathological fracture; Z79.84 Long term (current) use of oral hypoglycemic drugs; Z79.899 Other long term (current) drug therapy; Z83.3 Family history of diabetes mellitus; Z53.09 Procedure and treatment not carried out because of other contraindication; R09.02 Hypoxemia
CPT/HCPCS: 33207; 36415; 43239; 71045; 71046; 74177; 76705; 80048; 80053; 81003; 82150; 83605; 83690; 83880; 84443; 84484; 85025; 85610; 85730; 87040; 87086; 88305; 93005; 93306; 94760; 96361; 96365; 96375; 99285

== ENCOUNTER → 2018-04-10 | Outpatient (CLI) | payer MEDICARE, BC ==
[2018-04-10 15:55] LABS: HCT 33.2 % (34.0-46.0); HGB 10.3 gm/dL (11.4-16.0); Hypochromasia Slight; MCH 30.8 pg (25.0-35.0); MCHC 31.2 g/dL (31.0-37.0); MCV 98.7 fL (80.0-100.0); Mean Platelet Volume 6.7; Platelet Count 265 k/uL (150-450); RBC 3.36 m/uL (3.80-5.40); RDW 14.4 % (11.5-15.5); WBC 8.1 k/uL (3.8-10.6)
[2018-04-10 16:02] LABS: Prothrombin Time 10.1 sec (9.0-12.0)
[2018-04-10 16:06] LABS: Albumin 3.1 g/dL (3.5-5.0); Calcium 9.8 mg/dL (8.4-10.2); Potassium 4.9 mmol/L (3.5-5.1); Total Bilirubin 4.3 mg/dL (0.2-1.3); Total Protein 6.6 g/dL (6.3-8.2)
== END ==
LOC: LABWHC1 15:39
PROVIDERS: ATTEND Internal Medicine
DX: K80.50 Calculus of bile duct without cholangitis or cholecystitis without obstruction (principal)
CPT/HCPCS: 36415; 80053; 85027; 85610; 85730

== ENCOUNTER 2018-04-30 03:35 | Inpatient (IN) | payer MEDICARE, BC ==
[2018-04-30 04:39] LABS: Basophils % (A) 0 %; Eosinophils # (A) 0.1 k/uL (0-0.7); Eosinophils % (A) 0 %; HCT 30.1 % (34.0-46.0); HGB 9.5 gm/dL (11.4-16.0); Lymphocytes # (A) 2.3 k/uL (1.0-4.8); Lymphocytes % (A) 11 %; MCH 29.5 pg (25.0-35.0); MCHC 31.5 g/dL (31.0-37.0); Mean Platelet Volume 7.1; Monocytes % (A) 5 %; Neutrophils # (A) 17.9 k/uL (1.3-7.7); Neutrophils % (A) 83 %; Platelet Count 275 k/uL (150-450); RBC 3.22 m/uL (3.80-5.40); RDW 14.5 % (11.5-15.5); WBC 21.6 k/uL (3.8-10.6)
[2018-04-30 04:41] LABS: MCV 93.5 fL (80.0-100.0)
[2018-04-30 04:49] LABS: INR 1.1 (<1.2); Partial Thromboplastin Time 26.8 sec (22.0-30.0); Prothrombin Time 10.4 sec (9.0-12.0)
[2018-04-30 04:56] LABS: Lactic Acid, Venous 1.9 mmol/L (0.7-2.0)
[2018-04-30 04:57] LABS: Albumin 2.6 g/dL (3.5-5.0); Calcium 9.2 mg/dL (8.4-10.2); Total Bilirubin 0.8 mg/dL (0.2-1.3); Total Protein 5.6 g/dL (6.3-8.2)
[2018-04-30 05:07] LABS: Creatine Kinase <20 U/L (30-135)
[2018-04-30 05:18] LABS: Potassium 6.4 mmol/L (3.5-5.1)
[2018-04-30 05:20] LABS: Creatine Kinase MB 0.8 ng/mL (0.0-2.4); Troponin I <0.012 ng/mL (0.000-0.034)
[2018-04-30 05:29] LABS: Glucose,Whole Blood 338 mg/dL (75-99)
[2018-04-30] MEDS ORDERED: INSULIN REGULAR 100 UNIT/ML VIAL SQ STA (05:43)
[2018-04-30] MEDS ORDERED: SODIUM CHLORIDE 0.9% 1,000 ML IV ONE (05:43)
--- NOTE | 2018-04-30 06:05 | ED ---
General Adult HPI - General Chief complaint: Recheck/Abnormal Lab/Rx Stated complaint: Altered Mental Status Time Seen by Provider: 04/30/18 03:39 Source: EMS Mode of arrival: EMS Limitations: altered mental status - History of Present Illness Initial comments: This patient is an 87-year-old woman brought to be evaluated for fatigue, generalized weakness, and elevated blood sugar. These have all been going on for approximately days since patient had been released from [facility] , after she had stated that approximately 8 days related to a biliary obstruction. The patient had a drain placed there. Most of the history is from the patient's daughter, does live with the patient. The patient is denying any pain or dyspnea at the moment, but not able to give much other history. Onset/Timin -: week(s) - Related Data Home Medications Medication Instructions Recorded Confirmed Brimonidine Tartrate [Alphagan P 1 drops BOTH EYES BID@0900,1800 03/10/18 0.2% Ophth Soln] Latanoprost [Xalatan 0.005%] 1 drop BOTH EYES HS@2200 03/10/18 04/30/18 Timolol 0.5% Ophth Soln [Timoptic 1 drop BOTH EYES BID@0900,1800 03/10/18 0.5% Ophth Soln] Glimepiride [Amaryl] 1.5 mg PO BID 04/30/18 04/30/18 Insulin Glargine,Hum.rec.anlog 15 unit SQ HS 04/30/18 04/30/18 [Lantus Solostar] Previous Rx's Medication Instructions Recorded Pantoprazole [Protonix] 40 mg PO AC-BRKFST #30 tablet. 03/14/18 Apixaban [Eliquis] 2.5 mg PO BID #60 tab 03/20/18 Metoprolol Tartrate [Lopressor] 50 mg PO BID #60 tab 03/20/18 Allergies Allergy/AdvReac Type Severity Reaction Status Date / Time No Known Allergies Allergy Verified 04/30/18 07:07 Review of Systems ROS Statement: Those systems with pertinent positive or pertinent negative responses have been documented in the HPI. ROS Other: All systems not noted in ROS Statement are negative. Limitations: ROS unobtainable due to patients medical condition Respiratory: Denies: cough, dyspnea Cardiovascular: Denies: chest pain Gastrointestinal: Denies: abdominal pain Neurological: Denies: headache Past Medical History Past Medical History: Diabetes Mellitus, Rheumatoid Arthritis (RA) Additional Past Medical History / Comment(s): common bile duct blockage History of Any Multi-Drug Resistant Organisms: None Reported Past Surgical History: Joint Replacement Additional Past Surgical History / Comment(s): L hip, Abdominal drain, kidney stones Past Psychological History: No Psychological Hx Reported Smoking Status: Never smoker Past Alcohol Use History: None Reported Past Drug Use History: None Reported - Past Family History Mother Family Medical History: Diabetes Mellitus General Exam Limitations: no limitations General appearance: alert, in no apparent distress Head exam: Present: atraumatic, normocephalic Eye exam: Present: normal appearance, PERRL. Absent: scleral icterus, conjunctival injection ENT exam: Present: mucous membranes dry Neck exam: Present: normal inspection Respiratory exam: Present: normal lung sounds bilaterally. Absent: respiratory distress, wheezes, rales, rhonchi, stridor Cardiovascular Exam: Present: regular rate, normal rhythm, normal heart sounds. Absent: systolic murmur, diastolic murmur, rubs, gallop GI/Abdominal exam: Present: soft, other (There does appear to be a bile drain in the right upper quadrants. The dressing is intact. No tenderness at the insertion site.). Absent: distended, tenderness, guarding, rebound, mass Extremities exam: Present: normal inspection, normal capillary refill. Absent: pedal edema, calf tenderness Back exam: Present: normal inspection Neurological exam: Present: alert. Absent: oriented X3 (Patient is oriented to person), motor sensory deficit Skin exam: Present: warm, dry, intact, normal color. Absent: rash Course Vital Signs 04/30/18 04/30/18 03:37 06:22 Temperature 98.8 F Pulse Rate 89 89 Respiratory 20 20 Rate Blood Pressure 104/53 109/52 O2 Sat by Pulse 96 97 Oximetry EKG Findings - EKG Comments: EKG Findings:: Patient's 12-lead EKG shows appears to be a ventricular paced rhythm with a rate approximately 80 BPM. Medical Decision Making - Lab Data Result diagrams: 05/06/18 07:26 05/08/18 05:20 Lab Results 07/30/18 07/30/18 07/30/18 Range/Units 03:50 03:50 03:50 WBC 21.6 H (3.8-10.6) k/uL RBC 3.22 L (3.80-5.40) m/uL Hgb 9.5 L (11.4-16.0) gm/dL Hct 30.1 L (34.0-46.0) % MCV 93.5 D (80.0-100.0) fL MCH 29.5 (25.0-35.0) pg MCHC 31.5 (31.0-37.0) g/dL RDW 14.5 (11.5-15.5) % Plt Count 275 (150-450) k/uL Neutrophils % 83 % Lymphocytes % 11 % Monocytes % 5 % Eosinophils % 0 % Basophils % 0 % Neutrophils # 17.9 H (1.3-7.7) k/uL Lymphocytes # 2.3 (1.0-4.8) k/uL Monocytes # 1.0 (0-1.0) k/uL Eosinophils # 0.1 (0-0.7) k/uL Basophils # 0.0 (0-0.2) k/uL PT (9.0-12.0) sec INR (<1.2) APTT (22.0-30.0) sec Sodium (137-145) mmol/L Potassium (3.5-5.1) mmol/L Chloride (98-107) mmol/L Carbon Dioxide (22-30) mmol/L Anion Gap mmol/L BUN (7-17) mg/dL Creatinine (0.52-1.04) mg/dL Est GFR (CKD-EPI)AfAm (>60 ml/min/1.73 sqM) Est GFR (CKD-EPI)NonAf (>60 ml/min/1.73 sqM) Glucose (74-99) mg/dL POC Glucose (mg/dL) (75-99) mg/dL POC Glu Laborer/Key Man ID Estimated Ave Glu mg/dL Hemoglobin A1c (4.0-6.0) % Plasma Lactic Acid Wily 1.9 (0.7-2.0) mmol/L Calcium (8.4-10.2) mg/dL Total Bilirubin (0.2-1.3) mg/dL AST (14-36) U/L ALT (9-52) U/L Alkaline Phosphatase (38-126) U/L Ammonia 16 (<30) umol/L Total Creatine Kinase <20 L (30-135) U/L CK-MB (CK-2) 0.8 (0.0-2.4) ng/mL CK-MB (CK-2) Rel Index Troponin I <0.012 (0.000-0.034) ng/mL Total Protein (6.3-8.2) g/dL Albumin (3.5-5.0) g/dL 04/30/18 04/30/18 04/30/18 Range/Units 03:50 03:50 03:50 WBC (3.8-10.6) k/uL RBC (3.80-5.40) m/uL Hgb (11.4-16.0) gm/dL Hct (34.0-46.0) % MCV (80.0-100.0) fL MCH (25.0-35.0) pg MCHC (31.0-37.0) g/dL RDW (11.5-15.5) % Plt Count (150-450) k/uL Neutrophils % % Lymphocytes % % Monocytes % % Eosinophils % % Basophils % % Neutrophils # (1.3-7.7) k/uL Lymphocytes # (1.0-4.8) k/uL Monocytes # (0-1.0) k/uL Eosinophils # (0-0.7) k/uL Basophils # (0-0.2) k/uL PT 10.4 (9.0-12.0) sec INR 1.1 (<1.2) APTT 26.8 (22.0-30.0) sec Sodium 131 L (137-145) mmol/L Potassium 6.4 H* (3.5-5.1) mmol/L Chloride 100 (98-107) mmol/L Carbon Dioxide 21 L (22-30) mmol/L Anion Gap 10 mmol/L BUN 92 H* (7-17) mg/dL Creatinine 2.80 H (0.52-1.04) mg/dL Est GFR (CKD-EPI)AfAm 17 (>60 ml/min/1.73 sqM) Est GFR (CKD-EPI)NonAf 15 (>60 ml/min/1.73 sqM) Glucose 334 H (74-99) mg/dL POC Glucose (mg/dL) (75-99) mg/dL POC Glu Laborer/Key Man ID Estimated Ave Glu mg/dL 186 Hemoglobin A1c 8.1 H (4.0-6.0) % Plasma Lactic Acid Wily (0.7-2.0) mmol/L Calcium 9.2 (8.4-10.2) mg/dL Total Bilirubin 0.8 (0.2-1.3) mg/dL AST 19 (14-36) U/L ALT 22 (9-52) U/L Alkaline Phosphatase 177 H (38-126) U/L Ammonia (<30) umol/L Total Creatine Kinase (30-135) U/L CK-MB (CK-2) (0.0-2.4) ng/mL CK-MB (CK-2) Rel Index Troponin I (0.000-0.034) ng/mL Total Protein 5.6 L (6.3-8.2) g/dL Albumin 2.6 L (3.5-5.0) g/dL 04/30/18 Range/Units 05:23 WBC (3.8-10.6) k/uL RBC (3.80-5.40) m/uL Hgb (11.4-16.0) gm/dL Hct (34.0-46.0) % MCV (80.0-100.0) fL MCH (25.0-35.0) pg MCHC (31.0-37.0) g/dL RDW (11.5-15.5) % Plt Count (150-450) k/uL Neutrophils % % Lymphocytes % % Monocytes % % Eosinophils % % Basophils % % Neutrophils # (1.3-7.7) k/uL Lymphocytes # (1.0-4.8) k/uL Monocytes # (0-1.0) k/uL Eosinophils # (0-0.7) k/uL Basophils # (0-0.2) k/uL PT (9.0-12.0) sec INR (<1.2) APTT (22.0-30.0) sec Sodium (137-145) mmol/L Potassium (3.5-5.1) mmol/L Chloride (98-107) mmol/L Carbon Dioxide (22-30) mmol/L Anion Gap mmol/L BUN (7-17) mg/dL Creatinine (0.52-1.04) mg/dL Est GFR (CKD-EPI)AfAm (>60 ml/min/1.73 sqM) Est GFR (CKD-EPI)NonAf (>60 ml/min/1.73 sqM) Glucose (74-99) mg/dL POC Glucose (mg/dL) 338 H (75-99) mg/dL POC Glu Laborer/Key Man ID Arft, Valeriy Estimated Ave Glu mg/dL Hemoglobin A1c (4.0-6.0) % Plasma Lactic Acid Wily (0.7-2.0) mmol/L Calcium (8.4-10.2) mg/dL Total Bilirubin (0.2-1.3) mg/dL AST (14-36) U/L ALT (9-52) U/L Alkaline Phosphatase (38-126) U/L Ammonia (<30) umol/L Total Creatine Kinase (30-135) U/L CK-MB (CK-2) (0.0-2.4) ng/mL CK-MB (CK-2) Rel Index Troponin I (0.000-0.034) ng/mL Total Protein (6.3-8.2) g/dL Albumin (3.5-5.0) g/dL Disposition Clinical Impression: Acute kidney injury, Dehydration, Jaundice Disposition: ADMITTED IP TO THIS HOSP Condition: Poor Is patient prescribed a controlled substance at d/c from ED?: No
[2018-04-30] MEDS ORDERED: DEXTROSE 50%-WATER 50 ML SYRINGE IVP STA (06:13)
[2018-04-30] MEDS ORDERED: SODIUM BICARB 8.4% 50 ML SYR (1 MEQ/ML) IV STA (06:13)
[2018-04-30] MEDS ORDERED: AMPICILLIN-SULBACTAM 3 GM in SODIUM CHLORIDE 0.9% 100 ML IVPB STA (06:23)
--- NOTE | 2018-04-30 06:23 | XR ---
EXAMINATION TYPE: XR chest 1V portable DATE OF EXAM: 04/30/2018 COMPARISON: Chest x-ray March 20, 2018 HISTORY: Altered mental status and weakness. TECHNIQUE: Single AP portable frontal upright view of the chest is obtained. FINDINGS: There is redemonstration of cardiomegaly with single lead pacemaker. The osseous structu res remain demineralized. Underlying scoliosis is redemonstrated. There is chronic parenchymal change bilaterally with improved aeration right lung base. No new suspicious focal airspace opacity or pneu mothorax is seen. IMPRESSION: Chronic changes and cardiomegaly with improving right basilar atelectasis and/or infiltr ate. No new infiltrate is seen.
[2018-04-30] MEDS ORDERED: ACETAMINOPHEN TAB 325 MG TAB PO PRN (06:26)
[2018-04-30] MEDS ORDERED: NALOXONE 0.4 MG/ML 1 ML VIAL IV PRN (06:26)
[2018-04-30] MEDS ORDERED: SODIUM CHLORIDE 0.9% 500 ML IV STA (06:29)
[2018-04-30] MEDS ORDERED: SODIUM POLYSTYRENE SULFONATE 15 GM/60 ML BOTTLE PO STA (06:30)
[2018-04-30] MEDS ORDERED: CALCIUM GLUCONATE 1,000 MG in SODIUM CHLORIDE 0.9% 100 ML IVPB ONE (06:30)
[2018-04-30] MEDS ORDERED: HEPARIN SODIUM,PORCINE 5,000 UNIT/ML 1 ML VIAL SQ SCH (08:10)
[2018-04-30] MEDS: TIMOLOL 0.5% OPHTH DROPS 5 ML BTL BOTH EYES SCH ×2 (09:39→18:12)
[2018-04-30] MEDS: BRIMONIDINE TARTRATE 0.2% DROPS 5 ML BTL BOTH EYES SCH ×2 (09:39→18:12)
[2018-04-30] MEDS: INSULIN DETEMIR 100 UNIT/ML 10 ML VIAL SQ SCH ×2 (09:41→22:29)
[2018-04-30] MEDS: SODIUM CHLORIDE 0.9% 1,000 ML IV SCH ×2 (09:41→18:16)
[2018-04-30 10:00] LABS: Glucose,Whole Blood 311 mg/dL (75-99)
[2018-04-30] MEDS: INSULIN ASPART 100 UNIT/ML 1 ML 10 ML VIAL SQ SCH ×4 (10:01→21:46)
[2018-04-30] MEDS: METOPROLOL TARTRATE 50 MG TAB PO SCH ×2 (10:19→21:45)
[2018-04-30] MEDS: GLIMEPIRIDE 1 MG TAB PO SCH ×2 (10:19→21:44)
[2018-04-30] MEDS: PANTOPRAZOLE 40 MG TABLET PO SCH (10:19)
[2018-04-30] MEDS: APIXABAN 2.5 MG TABLET PO SCH ×2 (10:47→21:45)
--- NOTE | 2018-04-30 11:33 | US ---
EXAMINATION TYPE: US renals and bladder DATE OF EXAM: 04/30/2018 COMPARISON: CT abdomen and pelvis March 10, 2018 CLINICAL HISTORY: acute renal failure. EXAM MEASUREMENTS: Right Kidney: 10.7 x 6.4 x 4.9 cm Left Kidney: 12.2 x 6.1 x 5.2 cm Patient unable to wake up during testing. Right side bandaged from biliary drain so scanned posterior . Technically difficult and somewhat limited study. Right Kidney: Inferior pole partially obscured by bowel gas, moderate to severe hydro Left Kidney: cysts noted, largest measuring 4.9 x 4.1 x 4.4cm, mild to moderate hydro Bladder: not well visualized, not fully distended Bilateral Jets seen: No Exam noted suboptimal due to patient drowsiness and overlying right-sided bandages per technologist. There is fairly moderate left-sided hydronephrosis on initial images. Scattered simple appearing cyst s lower pole level on CT are less well seen on ultrasound images saved, few are successfully visualiz ed. Bladder is not greatly distended but no suspicious intraluminal mass is present. There is redemon stration of fairly severe right-sided hydronephrosis similar appearance to recent CT. IMPRESSION: Persistent severe right-sided hydronephrosis with abnormal soft tissue fullness mid right ureter leve l on CT. New moderate left-sided hydronephrosis noted.
[2018-04-30 11:38] LABS: Appearance,Urine Turbid (Clear); Bilirubin,Urine Negative (Negative); Blood,Urine Large (Negative); Budding Yeast,Urine Many /hpf; Color,Urine Red; Glucose,Urine (UA) 1+ (Negative); Ketones,Urine Negative (Negative); Leukocyte Esterase,Urine Large (Negative); Nitrite,Urine Negative (Negative); PH, Urine 5.5 (5.0-8.0); Protein,Urine 2+ (Negative); RBC,Urine >182 /hpf (0-5); Specific Gravity,Urine 1.015 (1.001-1.035); Urobilinogen,Urine <2.0 mg/dL (<2.0); WBC,Urine >182 /hpf (0-5)
[2018-04-30 12:10] LABS: Glucose,Whole Blood 194 mg/dL (75-99)
[2018-04-30 14:06] VITALS: BMI 19.5
[2018-04-30 16:33] LABS: Calcium 9.3 mg/dL (8.4-10.2); Potassium 5.5 mmol/L (3.5-5.1)
[2018-04-30 17:37] LABS: Glucose,Whole Blood 222 mg/dL (75-99)
[2018-04-30] MEDS: LATANOPROST 0.005% OPHTH DROPS 2.5 ML BTL BOTH EYES SCH (21:45)
[2018-04-30 21:50] LABS: Hemoglobin A1C 8.1 % (4.0-6.0)
[2018-04-30 22:00] LABS: Glucose,Whole Blood 316 mg/dL (75-99)
--- NOTE | 2018-04-30 22:12 | CONS ---
CONSULTATION DATE OF SERVICE: 04/30/2018 REQUESTING PHYSICIAN: Dr. Luna. REASON FOR CONSULTATION: History of obstructive jaundice/the patient known to me from previous hospitalization. HISTORY OF PRESENT ILLNESS: The patient is an 87-year-old pleasant white female who was admitted to the hospital because of generalized weakness, fatigue, and hyperglycemia. She states that she was just discharged from [facility] 2 days ago at which time she was admitted to the hospital for renal failure, bilateral hydronephrosis and ureteral stent placement. The patient is known to me from her previous hospitalization about 2 months ago. She presented with epigastric pain and elevated LFTs and slight jaundice. 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 Subsequently had and she was discharged home. A couple of weeks later, she was obviously jaundiced and then she was referred to Dr. Venegas at [facility]. Initial attempt at ERCP was unsuccessful and subsequently she had a percutaneous biliary drainage catheter placed. During this hospitalization last week, according to the daughter, she had another ERCP with CBD stent placement and breast cytology performed the results of which are not available at the time of this dictation. Most of the history was obtained from the patient's daughter who is at the bedside. The patient denies any symptoms. PAST MEDICAL HISTORY: Significant for hypertension, diabetes mellitus, rheumatoid arthritis. PAST SURGICAL HISTORY: Recent ERCP with CBD stent placement, US done a month ago. Left hip replacement. MEDICATIONS: At home include Lopressor, Tylenol, Eliquis, Protonix, Amaryl. ALLERGIES: None. SOCIAL HISTORY: No smoking. No alcohol use. FAMILY HISTORY: Unremarkable. REVIEW OF SYSTEMS: Cardiopulmonary: She denies any symptoms. Neurology unremarkable. Mild dementia. ENT/vision unremarkable. Constitutional: No recent weight loss. Per daughter, she may have lost about five pounds during this recent hospitalization. No fever, chills, or night sweats. PHYSICAL EXAMINATION: She appears comfortable. No apparent distress. VITAL SIGNS: Stable. Blood pressure is 104/67, pulse 89, temperature 98.8. HEENT: Examination unremarkable. Conjunctivae pink. Sclerae anicteric. Oral cavity no lesions. Neck no jugular venous distention or lymph node enlargement. The chest was clear to auscultation. HEART: Regular rate and rhythm. ABDOMEN: Soft, nontender, nondistended. Bowel sounds are positive. Extremities: No pedal edema. Skin no rashes. NEUROLOGIC: Alert and oriented x3. No focal deficits. LABORATORY DATA: WBC hemoglobin 9.5, platelets are normal. PT/INR is within normal limits. Basic metabolic panel showed a sodium of 131, potassium 6.4, BUN 92, creatinine 2.8. Today repeat BUN is 89, creatinine is 2.7. ALT and AST at 19 and 22 respectively. Alkaline phosphatase 177, bilirubin 0.8. BUN and creatinine from March 2018 was within normal limits. IMPRESSION: 1. Acute renal failure. 2. Hyperglycemia. 3. History of obstructive jaundice for which she underwent an ERCP by me which was unsuccessful in March of 2018. She was referred to [facility] and she underwent two more ERCP's, the last one was performed a few days ago and according to the patient, a CBD stent was placed and was performed, none of the results are available from endoscopic ultrasound as well as ERCP. In any event, her serum transaminases are within normal limits and clinically patient is not jaundiced. 4. . RECOMMENDATIONS: 1. Obtain all records from [facility]. 2. Continue medical management. 3. Further recommendations will follow based on after reviewing outpatient records from the hospital. Thank you for this consultation. PATY / JOSEN: [id number] /
--- NOTE | 2018-04-30 23:46 | HP ---
HISTORY AND PHYSICAL DATE OF SERVICE: 04/30/2018. ATTENDING PHYSICIAN: Dr. Nallely Luna. CHIEF COMPLAINT: Weakness. HISTORY OF PRESENT ILLNESS: This patient is an 87-year-old who was brought into the emergency room from home because of elevated blood sugars and generalized weakness and lethargy. The patient is poor communicating. When asked if she is in pain or how she is doing, she just says okay. The patient's daughter is the provider of the history. She is the one who is the caregiver. The patient was discharged from [facility] 2 days ago. The patient had been there because of obstructive jaundice, referred from this facility previously. The patient did have a biopsy done, transhepatic. The ERCP attempt was unsuccessful. The patient has a biliary drainage tube. There is no tenderness. The patient has had no fever or chills. Appetite has been fair. Blood sugars, however, have been in the 300s. The patient has been on Amaryl 1 mg t.i.d. as well as Lantus 15 units at bedtime. It was increased from 10 to 15 by the daughter the night before. The patient also has a history of paroxysmal atrial fibrillation and has been on Eliquis. The patient had renal failure and hyponatremia and had been admitted to [facility] in the ICU. She had bilateral hydronephrosis obstruction and had stents placed. I did make a significant attempt to contact the physician who is a wine steward as well as the floor physician at [facility] and have not received any communication back. PAST MEDICAL HISTORY: Past medical history is primarily significant for rheumatoid arthritis, diabetes mellitus, osteoporosis, and as mentioned above obstructive jaundice. She also has a duodenal stricture. She has cholelithiasis. No history of hypertension, lung disease, liver disease, kidney disease, ulcers, TB, hepatitis. No history of any rheumatic fever, myocardial infarction, CVA. On last admission was noted to have right hydronephrosis, of unclear etiology. According to the daughter, she had bilateral hydronephrosis felt to be secondary to stones. PAST SURGICAL HISTORY: Significant for bilateral hip ORIF following fractures. PERSONAL HISTORY: Never smoker. Alcohol none. ALLERGIES: None known. MEDICATIONS: 1. Eye drops of timolol 0.5% to both eyes. 2. Methotrexate which has been on hold. 3. Xalatan 0.005% 1 drop both eyes. 4. Amaryl 1 mg t.i.d. 5. Lantus 15 units at bedtime. 6. Metoprolol 50 mg b.i.d. 7. Protonix 40 mg daily. 8. Alphagan 0.2% ophthalmic solution 1 drop both eyes. 9. Eliquis 2.5 mg b.i.d. SOCIAL HISTORY: Patient is . She lives with a daughter who is a nurse and who cares for her. FAMILY MEDICAL HISTORY: One daughter had a carcinoma of the breast on admission. Other family is in adequate health. REVIEW OF SYSTEMS: NEURO: Denies any headaches. No reported dizziness. PSYCH: No anxiety, depression. CARDIAC: No chest pain. RESPIRATORY: No shortness of breath. The patient is not tachypneic. GI: No nausea or vomiting. Poor appetite. No abdominal pain. No diarrhea. : No symptoms of dysuria or hematuria. Has some incontinence. EXTREMITIES: History of rheumatoid arthritis. CONSTITUTIONAL: No fever, chills. SKIN: Has stage II decubitus in the sacral area. PHYSICAL EXAMINATION: Elderly female at present in no distress. VITAL SIGNS: Temperature 98.8, pulse 89, respirations 20, blood pressure 104/67, pulse ox 96% on room air. HEENT: Normocephalic. NECK: Decreased range of motion. Pupils are reactive. Oral cavity is dry. CHEST: Clear to auscultation. CARDIAC: Normal S1, S2 with no gallops. Regular rhythm. Systolic murmur 2/6 left sternal border. The patient has a pacemaker. ABDOMEN: Soft. No tenderness. Bowel sounds are active. Site of biliary tube has no purulent drainage. There is some staining of bile on the gauze. EXTREMITIES: No edema. NEUROLOGIC: Lethargic. Moves both upper and lower extremities. The patient does have rheumatoid deformities both hands and previous knee and hip surgeries. LABORATORY ASSESSMENT: White count 21.6, hemoglobin 9.5, potassium 6.4, sodium 131, BUN 92, creatinine 2.8, glucose 334, alkaline phosphatase 177. AST and ALT normal. CPK less than 20. Troponins are negative. Albumin 2.6. Urinalysis reveals specific gravity 1.015, 2+ protein, more than 182 RBCs, more than 182 WBC, negative nitrite. Urine osmolality 362. ASSESSMENT: 1. Acute kidney injury. 2. Acute renal failure. 3. Obstructive jaundice with biliary drain. 4. Diabetes mellitus, uncontrolled. 5. Anemia. 6. Rheumatoid arthritis. 7. Rule out infection. 8. Obstructive uropathy. 9. Stage II sacral decubitus. 10.Mild nutritional status. PLAN: Ultrasound of the kidneys. Urology consult. Continue Unasyn. The patient's prognosis remains guarded. Condition discussed with the daughter. Prognosis remains guarded. MMODL / IJN: [id number] /
[2018-05-01] MEDS: SODIUM CHLORIDE 0.9% 1,000 ML IV SCH ×3 (02:05→14:27)
--- NOTE | 2018-05-01 06:48 | P.GSCN ---
History of Present Illness Consult date: 05/01/18 History of present illness: This is an 87-year-old female who was brought into the hospital because of increase his weakness and anorexia. He was at [facility] for biliary problems and also bilateral hydronephrosis were stent replaced. We are asked see the patient for bilateral hydronephrosis. The patient can give no history. I do not know the cause of her hydronephrosis. She had a CAT scan in March that showed some sort of retroperitoneal mass that is obstructing the ureters which is probably the cause of the hydronephrosis. Her urine is inflamed consistent with the stents. 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[employer], sick sinus syndrome History of Any Multi-Drug Resistant Organisms: None Reported Past Surgical History: Joint Replacement Additional Past Surgical History / Comment(s): L hip, Abdominal drain, kidney stones, Bilateral ureter stents Past Psychological History: No Psychological Hx Reported Smoking Status: Never smoker Past Alcohol Use History: None Reported Past Drug Use History: None Reported - Past Family History Mother Family Medical History: Diabetes Mellitus Medications and Allergies Home Medications Medication Instructions Recorded Confirmed Type Brimonidine Tartrate [Alphagan P 1 drops BOTH EYES BID@0900,1800 03/10/18 History 0.2% Ophth Soln] Latanoprost [Xalatan 0.005%] 1 drop BOTH EYES HS@2200 03/10/18 04/30/18 History Timolol 0.5% Ophth Soln [Timoptic 1 drop BOTH EYES BID@0900,1800 03/10/18 History 0.5% Ophth Soln] Pantoprazole [Protonix] 40 mg PO HARPREET-BRKFST #30 tablet. 03/14/18 04/30/18 Rx Apixaban [Eliquis] 2.5 mg PO BID #60 tab 03/20/18 04/30/18 Rx Metoprolol Tartrate [Lopressor] 50 mg PO BID #60 tab 03/20/18 04/30/18 Rx Glimepiride [Amaryl] 1.5 mg PO BID 04/30/18 04/30/18 History Insulin Glargine,Hum.rec.anlog 15 unit SQ HS 04/30/18 04/30/18 History [Lantus Solostar] Allergies Allergy/AdvReac Type Severity Reaction Status Date / Time No Known Allergies Allergy Verified 04/30/18 07:07 Surgical - Exam Vital Signs Temp Pulse Resp BP Pulse Ox 98.8 F 89 20 104/53 96 04/30/18 03:37 04/30/18 03:37 04/30/18 03:37 04/30/18 03:37 04/30/18 03:37 - General well developed, no distress - Eyes PERRL - Neck trachea midline - Respiratory normal expansion, normal respiratory effort - Abdomen Abdomen: soft, non tender - Integumentary no rash, no growths - Neurologic memory loss - Musculoskeletal normal posture Results - Labs 04/30/18 03:50 04/30/18 15:30 Abnormal Lab Results - Last 24 Hours (Table) 04/30/18 04/30/18 04/30/18 Range/Units 09:59 11:00 11:57 Sodium (137-145) mmol/L Potassium (3.5-5.1) mmol/L BUN (7-17) mg/dL Creatinine (0.52-1.04) mg/dL Glucose (74-99) mg/dL POC Glucose (mg/dL) 311 H 194 H (75-99) mg/dL Urine Appearance Turbid H (Clear) Urine Protein 2+ H (Negative) Urine Glucose (UA) 1+ H (Negative) Urine Blood Large H (Negative) Ur Leukocyte Esterase Large H (Negative) Urine RBC >182 H (0-5) /hpf Urine WBC >182 H (0-5) /hpf Urine WBC Clumps Many H (None) /hpf Urine Yeast (Budding) Many H (None) /hpf 04/30/18 04/30/18 04/30/18 Range/Units 15:30 17:14 21:32 Sodium 134 L (137-145) mmol/L Potassium 5.5 H (3.5-5.1) mmol/L BUN 89 H* (7-17) mg/dL Creatinine 2.70 H (0.52-1.04) mg/dL Glucose 266 H (74-99) mg/dL POC Glucose (mg/dL) 222 H 316 H (75-99) mg/dL Urine Appearance (Clear) Urine Protein (Negative) Urine Glucose (UA) (Negative) Urine Blood (Negative) Ur Leukocyte Esterase (Negative) Urine RBC (0-5) /hpf Urine WBC (0-5) /hpf Urine WBC Clumps (None) /hpf Urine Yeast (Budding) (None) /hpf Microbiology - Last 24 Hours (Table) 04/30/18 03:50 Blood Culture - Preliminary Blood No Growth after 24 hours 04/30/18 11:00 Urine Culture - Preliminary Urine,Catheterized Diabetes panel 04/30/18 Range/Units 15:30 Sodium 134 L (137-145) mmol/L Potassium 5.5 H (3.5-5.1) mmol/L Chloride 103 (98-107) mmol/L Carbon Dioxide 22 (22-30) mmol/L BUN 89 H* (7-17) mg/dL Creatinine 2.70 H (0.52-1.04) mg/dL Glucose 266 H (74-99) mg/dL Calcium 9.3 (8.4-10.2) mg/dL Calcium panel 04/30/18 Range/Units 15:30 Calcium 9.3 (8.4-10.2) mg/dL Pituitary panel 04/30/18 Range/Units 15:30 Sodium 134 L (137-145) mmol/L Potassium 5.5 H (3.5-5.1) mmol/L Chloride 103 (98-107) mmol/L Carbon Dioxide 22 (22-30) mmol/L BUN 89 H* (7-17) mg/dL Creatinine 2.70 H (0.52-1.04) mg/dL Glucose 266 H (74-99) mg/dL Calcium 9.3 (8.4-10.2) mg/dL Adrenal panel 04/30/18 Range/Units 15:30 Sodium 134 L (137-145) mmol/L Potassium 5.5 H (3.5-5.1) mmol/L Chloride 103 (98-107) mmol/L Carbon Dioxide 22 (22-30) mmol/L BUN 89 H* (7-17) mg/dL Creatinine 2.70 H (0.52-1.04) mg/dL Glucose 266 H (74-99) mg/dL Calcium 9.3 (8.4-10.2) mg/dL - Imaging CT scan - abdomen: report reviewed, image reviewed CT scan - pelvis: report reviewed, image reviewed US - kidney/bladder: report reviewed, image reviewed Assessment and Plan Assessment: Impression: 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 Etiology of the mass is not clear. Recommendations: I would leave the stents in place until further determination of the mass is made and clarification as how this is going to be handled.
[2018-05-01 07:35] LABS: Glucose,Whole Blood 135 mg/dL (75-99)
[2018-05-01] MEDS: INSULIN ASPART 100 UNIT/ML 1 ML 10 ML VIAL SQ SCH ×4 (07:37→21:39)
[2018-05-01] MEDS: PANTOPRAZOLE 40 MG TABLET PO SCH (08:44)
[2018-05-01] MEDS: BRIMONIDINE TARTRATE 0.2% DROPS 5 ML BTL BOTH EYES SCH ×2 (08:45→18:19)
[2018-05-01] MEDS: APIXABAN 2.5 MG TABLET PO SCH ×2 (08:45→21:39)
[2018-05-01] MEDS: PIPERACILLIN-TAZOBACTAM 3.375 GM in DEXTROSE/WATER 1 50ML.BAG IVPB SCH ×2 (08:46→21:40)
[2018-05-01] MEDS: TIMOLOL 0.5% OPHTH DROPS 5 ML BTL BOTH EYES SCH ×2 (08:46→18:19)
[2018-05-01] MEDS: METOPROLOL TARTRATE 50 MG TAB PO SCH ×2 (08:46→21:40)
[2018-05-01 08:58] LABS: HCT 29.7 % (34.0-46.0); HGB 9.3 gm/dL (11.4-16.0); MCHC 31.4 g/dL (31.0-37.0); MCV 92.4 fL (80.0-100.0); Mean Platelet Volume 7.2; Platelet Count 336 k/uL (150-450); RBC 3.21 m/uL (3.80-5.40); RDW 14.1 % (11.5-15.5); WBC 21.2 k/uL (3.8-10.6)
[2018-05-01 09:13] LABS: Calcium 8.6 mg/dL (8.4-10.2)
--- NOTE | 2018-05-01 10:31 | CDI ---
Last Revision, September 2017 Documentation Clarification Form Date: 05/01/2018 10:18:00 AM From: Naomi ChristiansonLaTAMMY, CCDS Admit Date: 04/30/2018 6:29:00 AM Patient Name: Bita Mayfield Visit Number: [id number] Discharge Date: ATTENTION: The Clinical Documentation Specialists (CDI) and [facility] Coding Staff appreciate your assistance in clarifying documentation. Please respond to the clarification below the line at the bottom and electronically sign. The CDI & [facility] Coding staff will review the response and follow-up if needed. Please note: Queries are made part of the Legal Health Record. If you have any questions, please contact the author of this message via ITS. Dr. Nigel Luna: 87 yo female, admitted with generalized weakness, fatigue & elevated blood sugars, recently discharged from [facility] status post CBD stent placement for obstructive jaundice. Patient has an obstructing mass of unknown etiology & known bilateral hydronephrosis. Per the H/P: DM, uncontrolled. Per the GI Consult: admitted with hyperglycemia. History/Risk Factors: IDDM II, Paroxysmal Atrial Fibrillation on Eliquis, SSS w/ pacemaker & osteoarthritis. Clinical Indicators: VSS LAB: Glucose 334 - 266, currently 135 Treatment: Insulin sq, IV fl bolus, IV Dextrose, IV NaBicarb, IV Ampicillin In order to capture the severity of Illness and necessary documentation specificity, please clarify: Insulin Dependent DM Type 2 o With Hyperglycemia Undetermined Please also document any associated conditions related to the patient's diabetes. Please continue to document in your progress notes and discharge summary in order to capture severity of illness and risk of mortality. Include clinical findings that support your diagnosis. MTDD
--- NOTE | 2018-05-01 10:46 | CDI ---
Last Revision, September 2017 Documentation Clarification Form Date: 05/01/2018 10:36:00 AM From: Naomi LaTAMMY, CCDS Admit Date: 04/30/2018 6:29:00 AM Patient Name: Bita Mayfield Visit Number: [id number] Discharge Date: ATTENTION: The Clinical Documentation Specialists (CDI) and [facility] Coding Staff appreciate your assistance in clarifying documentation. Please respond to the clarification below the line at the bottom and electronically sign. The CDI & [facility] Coding staff will review the response and follow-up if needed. Please note: Queries are made part of the Legal Health Record. If you have any questions, please contact the author of this message via ITS. Dr. Nigel Luna: A diagnosis of anemia lacks specificity to accurately reflect your patients severity of condition and clarification is needed. History/Risk Factors: Recently had a biliary drain placed at [facility] for obstructive jaundice. Clinical indicators: Presented with fatigue, generalized weakness & elevated blood sugar. Patient's appetite has been decreased, BMI is 19.5. Hemoglobin: 9.5, 9.3 Hematocrit: 30.1, 29.7 Home Rx: Protonix, Lopressor, Insulin sq, Amaryl, Eliquis Treatment: IV fluid bolus, Insulin sq, IV NaBicarb, IV Ampicillin, GI & Urology consult. In order to capture the severity of condition, please clarify the type of anemia and etiology if known: Acute blood loss anemia Acute on chronic blood loss anemia Chronic anemia o Blood loss o Hemolytic o Simple Iron deficiency anemia Drug induced anemia Nutritional anemia Anemia of chronic kidney disease Unable to determine Other, please specify Please continue to document in your progress notes and discharge summary in order to capture severity of illness and risk of mortality. Include clinical findings that support your diagnosis. MTDD
[2018-05-01] MEDS: INSULIN DETEMIR 100 UNIT/ML 10 ML VIAL SQ SCH ×2 (11:40→21:40)
[2018-05-01 12:15] LABS: Glucose,Whole Blood 272 mg/dL (75-99)
[2018-05-01 17:00] LABS: Glucose,Whole Blood 211 mg/dL (75-99)
[2018-05-01 20:46] LABS: Glucose,Whole Blood 237 mg/dL (75-99)
[2018-05-01] MEDS: LATANOPROST 0.005% OPHTH DROPS 2.5 ML BTL BOTH EYES SCH (21:41)
[2018-05-01] MEDS ORDERED: FLUCONAZOLE IN NACL,ISO-OSM 200 MG in SALINE 1 100ML.BAG IVPB SCH (23:00)
[2018-05-02] MEDS: SODIUM CHLORIDE 0.9% 1,000 ML IV SCH ×3 (01:24→19:30)
--- NOTE | 2018-05-02 04:17 | PN ---
PROGRESS NOTE ATTENDING PHYSICIAN: Dr. Nallely Luna. CHIEF COMPLAINT: Re-evaluation. HISTORY OF PRESENT ILLNESS: 87-year-old female was admitted to the hospital because of increased lethargy, hyperglycemia. The patient also noted to have leukocytosis. The patient recently has had a biliary drainage for obstructive jaundice. The patient had a biopsy done to rule out any malignancy. She had significant duodenal stricture, difficult to do an ERCP. The patient had been at [facility] and discharged from there on Monday last week. The patient presented back to the hospital with azotemia. The patient also significantly dehydrated. She has urine output as noted from wetting Depends but difficult to assess for the quantity. She does have a stage II decubitus. The patient has a history of atrial fibrillation and a pacemaker for high-grade AV block. The patient is on anticoagulation. REVIEW OF SYSTEMS: NEURO: Denies any headaches. PSYCH: Lethargic. CARDIAC: Denies chest pain. RESPIRATORY: No reported shortness of breath, but patient tachypneic. GI: No nausea, vomiting. Appetite fair. No abdominal pain. No diarrhea. no symptoms. Has incontinence. EXTREMITIES: Mild pain. CONSTITUTIONAL: No fever chills. PHYSICAL EXAMINATION: GENERAL: Elderly female at present in no distress. Limited communication. VITAL SIGNS: Temperature 98, pulse 90, respirations 16, blood pressure 109/55, pulse ox 92% on room air. HEENT: Normocephalic. Neck no JVD. CHEST: Clear to auscultation. CARDIAC: Distant heart sounds S1, S2 with no gallops. Systolic murmur 2/6 left sternal border. ABDOMEN: Protuberant, soft. Bowel sounds active. EXTREMITIES: Reveal no edema. NEUROLOGICALLY: Lethargic does move both upper and lower extremities. LABORATORY ASSESSMENT: White count 21.2, hemoglobin 9.3, platelets 336. Sodium 135, potassium 5, chloride 108, CO2 content 19, anion gap of 8, BUN 76, creatinine 2.24, glucose 178, fasting glucose of 135. Urine culture yeast. Blood cultures growing yeast. ASSESSMENT: 1. Acute renal failure. 2. Obstructive uropathy. 3. Obstructive jaundice. 4. Rheumatoid arthritis. 5. Yeast bacteremia. PLAN: The patient at present is stable. Continue present medical regimen. Patient's condition discussed with the patient's daughter. Prognosis remains guarded. Reviewed urology consult, which talks about possible extrinsic urinary obstruction due to pelvic mass. Reviewed that previously the last admission and the conclusion with it was not of any significance at the time. We will reconsider doing a CT scan of the abdomen. Meanwhile, the patient is started on Diflucan. We will ask ID to see the patient. MMODL / IJN: [id number] /
[2018-05-02 07:13] LABS: Glucose,Whole Blood 116 mg/dL (75-99)
[2018-05-02] MEDS: INSULIN ASPART 100 UNIT/ML 1 ML 10 ML VIAL SQ SCH ×3 (07:15→17:23)
[2018-05-02] MEDS: PIPERACILLIN-TAZOBACTAM 3.375 GM in DEXTROSE/WATER 1 50ML.BAG IVPB SCH ×2 (08:09→22:07)
[2018-05-02] MEDS: PANTOPRAZOLE 40 MG TABLET PO SCH (08:09)
[2018-05-02] MEDS: BRIMONIDINE TARTRATE 0.2% DROPS 5 ML BTL BOTH EYES SCH ×2 (08:09→17:23)
[2018-05-02] MEDS: APIXABAN 2.5 MG TABLET PO SCH (08:09)
[2018-05-02] MEDS: METOPROLOL TARTRATE 50 MG TAB PO SCH (08:09)
[2018-05-02] MEDS: TIMOLOL 0.5% OPHTH DROPS 5 ML BTL BOTH EYES SCH ×2 (08:10→17:23)
[2018-05-02] MEDS ORDERED: SODIUM CHLORIDE 0.9% 1,000 ML IV SCH (08:15)
--- NOTE | 2018-05-02 08:35 | CDI ---
Last Revision, September 2017 Documentation Clarification Form Date: 05/01/2018 10:18:00 AM Resubmitted 05/02/2018 From: Naomi La Admit Date: 04/30/2018 6:29:00 AM Patient Name: Bita Mayfield Visit Number: [id number] Discharge Date: ATTENTION: The Clinical Documentation Specialists (CDI) and [facility] Coding Staff appreciate your assistance in clarifying documentation. Please respond to the clarification below the line at the bottom and electronically sign. The CDI & [facility] Coding staff will review the response and follow-up if needed. Please note: Queries are made part of the Legal Health Record. If you have any questions, please contact the author of this message via ITS. Dr. Nigel Luna: 87 yo female, admitted with generalized weakness, fatigue & elevated blood sugars, recently discharged from [facility] status post CBD stent placement for obstructive jaundice. Patient has an obstructing mass of unknown etiology & known bilateral hydronephrosis. Per the H/P: DM, uncontrolled. Per the GI Consult: admitted with hyperglycemia. History/Risk Factors: IDDM II, Paroxysmal Atrial Fibrillation on Eliquis, SSS w/ pacemaker & osteoarthritis. Clinical Indicators: VSS LAB: Glucose 334 - 266, currently 135 Treatment: Insulin sq, IV fl bolus, IV Dextrose, IV NaBicoarb, IV Ampicillin In order to capture the severity of Illness and necessary documentation specificity, please clarify: Insulin Dependent DM Type 2 With Hyperglycemia Undetermined Please also document any associated conditions related to the patient's diabetes. Please continue to document in your progress notes and discharge summary in order to capture severity of illness and risk of mortality. Include clinical findings that support your diagnosis. MTDD
--- NOTE | 2018-05-02 08:38 | CDI ---
Last Revision, September 2017 Documentation Clarification Form Date: 05/01/2018 10:18:00 AM Resubmitted 05/02/2018 From: Naomi La Admit Date: 04/30/2018 6:29:00 AM Patient Name: Bita Mayfield Visit Number: [id number] Discharge Date: ATTENTION: The Clinical Documentation Specialists (CDI) and [facility] Coding Staff appreciate your assistance in clarifying documentation. Please respond to the clarification below the line at the bottom and electronically sign. The CDI & [facility] Coding staff will review the response and follow-up if needed. Please note: Queries are made part of the Legal Health Record. If you have any questions, please contact the author of this message via ITS. Dr. Nigel Luna: 87 yo female, admitted with generalized weakness, fatigue & elevated blood sugars, recently discharged from [facility] status post CBD stent placement for obstructive jaundice. Patient has an obstructing mass of unknown etiology & known bilateral hydronephrosis. Per the H/P: DM, uncontrolled. Per the GI Consult: admitted with hyperglycemia. History/Risk Factors: IDDM II, Paroxysmal Atrial Fibrillation on Eliquis, SSS w/ pacemaker & osteoarthritis. Clinical Indicators: VSS LAB: Glucose 334 - 266, currently 135 Treatment: Insulin sq, IV fl bolus, IV Dextrose, IV NaBicoarb, IV Ampicillin In order to capture the severity of Illness and necessary documentation specificity, please clarify: Insulin Dependent DM Type 2 With Hyperglycemia Undetermined Please also document any associated conditions related to the patient's diabetes. Please continue to document in your progress notes and discharge summary in order to capture severity of illness and risk of mortality. Include clinical findings that support your diagnosis. MTDD
[2018-05-02] MEDS ORDERED: INSULIN DETEMIR 100 UNIT/ML 10 ML VIAL SQ SCH (09:00)
[2018-05-02 09:25] LABS: Calcium 8.6 mg/dL (8.4-10.2); Potassium 5.3 mmol/L (3.5-5.1)
[2018-05-02] MEDS ORDERED: DEXTROSE 5% IN WATER 1,000 ML with SODIUM BICARB (1 MEQ/ML) 100 ML IV SCH (11:00)
--- NOTE | 2018-05-02 11:05 | P.PN ---
Subjective Progress Note Date: 05/02/18 Principal diagnosis: History of duodenal stricture [facility] medical records reviewed. PTC April 11 fluid cytology negative. Follow-up brush cytology 04/24/2018 no evidence of malignancy. Afebrile. Objective - Vital Signs Vital signs: Vital Signs Temp 98.0 F 05/02/18 06:16 Pulse 89 05/02/18 06:16 Resp 16 05/02/18 06:16 BP 123/71 05/02/18 06:16 Pulse Ox 93 L 05/02/18 06:16 Intake & Output 05/01/18 05/02/18 05/02/18 18:59 06:59 18:59 Other: Voiding Method Incontinent # Voids 3 3 # Bowel Movements 1 1 - Exam General appearance: The patient is alert, oriented, in no acute distress. HET: Head is normocephalic and atraumatic. Pupils are equal and reactive. Oropharynx is clear without lesions. Neck: Supple without lymphadenopathy. Trachea midline. Heart: S1 S2. Regular rate and rhythm. Lungs: No crackles or wheezes are heard. Abdomen: Soft, nontender, nondistended with bowel sounds. Biliary drainage tube capped no erythema or tenderness. No peritoneal signs. No palpable organomegaly or masses. Extremities: Normal skin color and turgor. No cyanosis, rash, ulceration, clubbing, or edema. Radial and pedal pulses are 2/4 bilaterally. Neurological: No focal deficits. Strength and sensation are grossly intact. - Labs CBC & Chem 7: 05/01/18 08:21 05/02/18 08:33 Labs: Abnormal Lab Results - Last 24 Hours (Table) 05/01/18 05/01/18 05/01/18 Range/Units 12:06 16:57 20:37 Sodium (137-145) mmol/L Potassium (3.5-5.1) mmol/L Chloride (98-107) mmol/L Carbon Dioxide (22-30) mmol/L BUN (7-17) mg/dL Creatinine (0.52-1.04) mg/dL Glucose (74-99) mg/dL POC Glucose (mg/dL) 272 H 211 H 237 H (75-99) mg/dL 05/02/18 05/02/18 Range/Units 07:03 08:33 Sodium 136 L (137-145) mmol/L Potassium 5.3 H (3.5-5.1) mmol/L Chloride 108 H (98-107) mmol/L Carbon Dioxide 16 L (22-30) mmol/L BUN 68 H (7-17) mg/dL Creatinine 2.24 H (0.52-1.04) mg/dL Glucose 113 H (74-99) mg/dL POC Glucose (mg/dL) 116 H (75-99) mg/dL Microbiology - Last 24 Hours (Table) 04/30/18 03:50 Blood Culture Gram Stain - Preliminary Blood Blood Culture - Preliminary Yeast species 04/30/18 03:50 Blood Culture - Final Blood 04/30/18 11:00 Urine Culture - Preliminary Urine,Catheterized Yeast species Assessment and Plan (1) Duodenal stricture Narrative/Plan: History of obstructive jaundice. Unsuccessful ERCP 2 subsequent placement of percutaneous biliary drainage tube with negative cytology including brush washings 04/24/2018 at [facility]. No clinical evidence of jaundice admission liver function tests unremarkable with the exception of alkaline phosphatase 177. Current Visit: Yes Status: Acute Code(s): K31.5 - OBSTRUCTION OF DUODENUM SNOMED Code(s): 80363705 (2) Acute renal failure Current Visit: Yes Status: Acute Code(s): N17.9 - ACUTE KIDNEY FAILURE, UNSPECIFIED SNOMED Code(s): 18029028 Plan: 1. Continue supportive measures. Assessment and plan a care discussed with Dr. Ballard
[2018-05-02 12:10] LABS: Glucose,Whole Blood 132 mg/dL (75-99)
--- NOTE | 2018-05-02 12:44 | P.PN ---
Subjective Progress Note Date: 05/02/18 I had a discussion with Dr. Luna this morning about this patient. She is in the hospital with apparent urinary tract infection with sepsis. She has blood and urine cultures growing yeast. She had bilateral ureteral stents placed for hydroureteronephrosis at [facility] when she was undergoing biliary procedures. The exact etiology of the obstruction is unclear. He was question whether there may be stone however upon reviewing the computed tomography scan it is very difficult to tell. The question is whether to remove the stents or exchange the stents for the fungemia and funguria. These are relatively new stent so it would be extremely unlikely that they have be encrusted and full of fungus. An option would be to place nephrostomy tubes. Rather than do both of these procedures I think it would be appropriate to treat her funguria/ fungating me to see if we can clear the situation without having to replace the tubes or replace nephrostomy tubes at this point in time. 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 Objective - Vital Signs Vital signs: Vital Signs Temp 98.0 F 05/02/18 06:16 Pulse 89 05/02/18 06:16 Resp 16 05/02/18 06:16 BP 123/71 05/02/18 06:16 Pulse Ox 93 L 05/02/18 06:16 Intake & Output 05/01/18 05/02/18 05/02/18 18:59 06:59 18:59 Other: Voiding Method Incontinent # Voids 3 3 # Bowel Movements 1 1 - Labs CBC & Chem 7: 05/01/18 08:21 05/02/18 08:33 Labs: Abnormal Lab Results - Last 24 Hours (Table) 05/01/18 05/01/18 05/02/18 Range/Units 16:57 20:37 07:03 Sodium (137-145) mmol/L Potassium (3.5-5.1) mmol/L Chloride (98-107) mmol/L Carbon Dioxide (22-30) mmol/L BUN (7-17) mg/dL Creatinine (0.52-1.04) mg/dL Glucose (74-99) mg/dL POC Glucose (mg/dL) 211 H 237 H 116 H (75-99) mg/dL 05/02/18 05/02/18 Range/Units 08:33 12:08 Sodium 136 L (137-145) mmol/L Potassium 5.3 H (3.5-5.1) mmol/L Chloride 108 H (98-107) mmol/L Carbon Dioxide 16 L (22-30) mmol/L BUN 68 H (7-17) mg/dL Creatinine 2.24 H (0.52-1.04) mg/dL Glucose 113 H (74-99) mg/dL POC Glucose (mg/dL) 132 H (75-99) mg/dL Microbiology - Last 24 Hours (Table) 04/30/18 03:50 Blood Culture Gram Stain - Preliminary Blood Blood Culture - Preliminary Yeast species 04/30/18 03:50 Blood Culture - Final Blood 04/30/18 11:00 Urine Culture - Preliminary Urine,Catheterized Yeast species
[2018-05-02 17:09] LABS: Glucose,Whole Blood 337 mg/dL (75-99)
[2018-05-02 17:13] LABS: Albumin 2.3 g/dL (3.5-5.0); Calcium 8.3 mg/dL (8.4-10.2); Total Bilirubin 0.8 mg/dL (0.2-1.3)
[2018-05-02 17:19] LABS: Potassium 5.6 mmol/L (3.5-5.1)
[2018-05-02] MEDS ORDERED: FUROSEMIDE 10 MG/ML 2 ML VIAL IV STA (17:47)
[2018-05-02] MEDS ORDERED: SODIUM BICARB 8.4% 50 ML SYR (1 MEQ/ML) IV ONE (17:53)
[2018-05-02] MEDS ORDERED: FUROSEMIDE 10 MG/ML 4 ML VIAL IV STA (18:22)
[2018-05-02] MEDS ORDERED: MORPHINE SULFATE 4 MG/ML SYRINGE IV PRN (18:22)
[2018-05-02] MEDS ORDERED: LORazepam 2 MG/ML INJ IV PRN (18:22)
[2018-05-02] MEDS ORDERED: MORPHINE SULFATE 4 MG/ML SYRINGE IVP ONE (18:22)
[2018-05-02] MEDS ORDERED: ONDANSETRON 4 MG/2 ML VIAL IVP PRN (18:22)
[2018-05-02] MEDS ORDERED: ATROPINE OPHTH SOLN 1% 5ML BTL SUBLINGUAL PRN (18:22)
--- NOTE | 2018-05-02 18:44 | XR ---
EXAMINATION: XR chest 1V portable DATE AND TIME: 05/02/2018 6:05 PM ORDERING PROVIDER: Nigel Luna CLINICAL INDICATION: increased respiratory rate TECHNIQUE: AP portable upright COMPARISON: 04/30/2018 at 5:56 AM DESCRIPTION: Since prior study a moderate-plus right pleural effusion has developed. Also, the pulmonary edema pattern is moderate interstitial phase with areas of alveolar phase present ly - more prominent than the prior study. Moderately enlarged cardiac silhouette appears similar to the prior study. No pneumothorax or other abnormal gas collections are evident. IMPRESSION: PROMINENT INTERVAL WORSENING.
[2018-05-02] MEDS ORDERED: SCOPOLAMINE 1.5MG/72HR PATCH TRANSDERM PRN (19:00)
[2018-05-02] MEDS ORDERED: MORPHINE SULFATE (100 MG/2 ML) 100 MG in SODIUM CHLORIDE 0.9% 100 ML IV SCH (19:00)
[2018-05-02 21:54] LABS: Glucose,Whole Blood 182 mg/dL (75-99)
--- NOTE | 2018-05-02 22:36 | PN ---
PROGRESS NOTE CHIEF COMPLAINT: Re-evaluation. HISTORY OF PRESENT ILLNESS: This 87-year-old female today was seen twice. This morning patient appeared fairly comfortable, in no major distress. The patient has no specific communication. The patient does say occasional words. The patient does have evidence of metabolic encephalopathy. The patient was admitted to the hospital with obtundation, evidence of azotemia, hyperkalemia, urinary tract infection with yeast and fungemia on blood culture. The patient was started on Diflucan yesterday. The patient is also on Zosyn. She has biliary drainage for biliary obstruction. The patient was re-evaluated this afternoon because the patient had become significantly tachypneic and had significant turn of events. The patient's IV had been switched over to D5W with bicarbonate, as patient had mild acidosis and hyperkalemia. The patient has underlying renal disease. Her renal status has improved some. The patient has obstructive uropathy. I did discuss with Dr. Valladares, the urologist, regarding possibility of change of stents from bilateral ureters. I also discussed the case with the urologist who placed the stents up at [facility] last week. Also discussed the case with the physician who was taking care of the patient at [facility]. The patient has been afebrile. The patient's urologist at [facility] suggested maybe we should put nephrostomy tubes. Discussed this with Dr. Valladares, who feels that at present we should continue with the regimen of treating the infections leaving the tube in, as the patient's general condition is not that good. This patient this afternoon became more tachypneic and had evidence of some respiratory congestion. Chest x-ray shows changes suggestive of CHF with right pleural effusion. In view of this, patient was given diuretics. The patient's chest x-ray does show some mention of pulmonary edema. Patient's IV fluid was discontinued. Patient was given Lasix. The patient's condition was discussed in detail with the family. The patient's daughter is an ICU nurse. Since the patient was FULL CODE, I discussed with them whether they were interested in putting the patient on a ventilator, as she probably will soon end up on that since she is tachypneic, mildly acidotic. The family made a decision for comfort care. At the time of my dictation here, prior to that the family has changed their mind about making her NO CODE but continuing present care. The patient will be continued on the Diflucan, Zosyn, IV Lasix. The patient's prognosis remains poor. The patient is on oxygen. The patient will receive morphine as needed for comfort. PHYSICAL EXAMINATION: Vital signs revealed temperature 98.4, pulse 88, respirations 42, blood pressure 122/57, pulse ox 96% on 2 L. HEENT: Normocephalic. Neck has decreased range of motion. Oral cavity is dry. CHEST EXAMINATION: Dullness, right base, with crackles bilaterally. CARDIAC: Distant heart sounds S1, S2 with no gallops. Patient has a pacemaker. ABDOMEN: Soft. Bowel sounds present. Extremities reveal trace edema. NEUROLOGIC: Awake but unresponsive. LABORATORY ASSESSMENT: Sodium 133, potassium 5.6, chloride 107, CO2 content 15, anion gap 11, BUN 67, creatinine 2.09, glucose 293, AST 74, ALT 19, alkaline phosphatase 133. Bilirubin is normal. ASSESSMENT: 1. Acute respiratory failure secondary to acute congestive cardiac failure secondary to diastolic dysfunction and renal failure. 2. Acute renal failure. 3. Obstructive uropathy. 4. Urinary tract infection and fungemia. 5. Diabetes mellitus with elevated blood sugars. 6. Rheumatoid arthritis. 7. Metabolic encephalopathy. 8. Biliary obstruction with a biliary drainage tube. PLAN: Continue present medical regimen. Patient's condition was discussed with the patient and family in detail. After further discussions, patient's family elected no ICU placement or any ventilator, to make the patient NO CODE. I spent 45 minutes with the patient's family. MMSTANLEYL / JOSEN: [id number] /
[2018-05-02] MEDS: FUROSEMIDE 10 MG/ML 4 ML VIAL IV SCH (23:25)
[2018-05-02] MEDS: MORPHINE SULFATE 2 MG/ML SYRINGE IV PRN (23:25)
[2018-05-03] MEDS ORDERED: DEXTROSE 50%-WATER 50 ML SYRINGE IVP ONE (07:27)
[2018-05-03] MEDS: INSULIN ASPART 100 UNIT/ML 1 ML 10 ML VIAL SQ SCH ×4 (07:33→23:22)
[2018-05-03] MEDS: FUROSEMIDE 10 MG/ML 4 ML VIAL IV SCH ×3 (07:41→23:41)
[2018-05-03 07:43] LABS: Glucose,Whole Blood 51 mg/dL (75-99)
[2018-05-03 07:54] LABS: Glucose,Whole Blood 225 mg/dL (75-99)
--- NOTE | 2018-05-03 08:41 | P.PN ---
Subjective Progress Note Date: 05/03/18 Principal diagnosis: History of duodenal stricture [facility] medical records reviewed. PTC April 11 fluid cytology negative. Follow-up brush cytology 04/24/2018 no evidence of malignancy. Afebrile. Increase bilious drainage around biliary drain insertion site. LFTs stable. Objective - Vital Signs Vital signs: Vital Signs Temp 97.4 F L 05/03/18 07:00 Pulse 90 05/03/18 07:00 Resp 22 05/03/18 07:00 BP 93/50 05/03/18 07:00 Pulse Ox 99 05/03/18 07:00 Intake & Output 05/02/18 05/03/18 05/03/18 18:59 06:59 18:59 Intake Total 0 Output Total 2200 Balance -2200 Intake: Oral 0 Output: Urine 2200 Straight 1100 Other: Voiding Method Incontinent Indwelling Catheter # Voids 1 0 # Bowel Movements 0 - Exam General appearance: The patient is sleeping somnolent, oriented, in no acute distress. HET: Head is normocephalic and atraumatic. Pupils are equal and reactive. Oropharynx is clear without lesions. Neck: Supple without lymphadenopathy. Trachea midline. Heart: S1 S2. Regular rate and rhythm. Lungs: No crackles or wheezes are heard. Abdomen: Soft, nontender, nondistended with bowel sounds. Biliary drainage tube leaking around insertion site. No peritoneal signs. No palpable organomegaly or masses. - Labs CBC & Chem 7: 05/01/18 08:21 05/03/18 13:14 Labs: Abnormal Lab Results - Last 24 Hours (Table) 05/02/18 05/02/18 05/02/18 Range/Units 08:33 12:08 16:42 Sodium 136 L 133 L (137-145) mmol/L Potassium 5.3 H 5.6 H (3.5-5.1) mmol/L Chloride 108 H (98-107) mmol/L Carbon Dioxide 16 L 15 L (22-30) mmol/L BUN 68 H 67 H (7-17) mg/dL Creatinine 2.24 H 2.09 H (0.52-1.04) mg/dL Glucose 113 H 293 H (74-99) mg/dL POC Glucose (mg/dL) 132 H (75-99) mg/dL Calcium 8.3 L (8.4-10.2) mg/dL AST 74 H (14-36) U/L Alkaline Phosphatase 133 H (38-126) U/L Total Protein 5.0 L (6.3-8.2) g/dL Albumin 2.3 L (3.5-5.0) g/dL 05/02/18 05/02/18 05/03/18 Range/Units 16:53 21:50 07:22 Sodium (137-145) mmol/L Potassium (3.5-5.1) mmol/L Chloride (98-107) mmol/L Carbon Dioxide (22-30) mmol/L BUN (7-17) mg/dL Creatinine (0.52-1.04) mg/dL Glucose (74-99) mg/dL POC Glucose (mg/dL) 337 H 182 H 51 L (75-99) mg/dL Calcium (8.4-10.2) mg/dL AST (14-36) U/L Alkaline Phosphatase (38-126) U/L Total Protein (6.3-8.2) g/dL Albumin (3.5-5.0) g/dL 05/03/18 Range/Units 07:51 Sodium (137-145) mmol/L Potassium (3.5-5.1) mmol/L Chloride (98-107) mmol/L Carbon Dioxide (22-30) mmol/L BUN (7-17) mg/dL Creatinine (0.52-1.04) mg/dL Glucose (74-99) mg/dL POC Glucose (mg/dL) 225 H (75-99) mg/dL Calcium (8.4-10.2) mg/dL AST (14-36) U/L Alkaline Phosphatase (38-126) U/L Total Protein (6.3-8.2) g/dL Albumin (3.5-5.0) g/dL Microbiology - Last 24 Hours (Table) 04/30/18 11:00 Urine Culture - Final Urine,Catheterized Yanelis albicans 04/30/18 03:50 Blood Culture Gram Stain - Preliminary Blood Blood Culture - Preliminary Yeast species Assessment and Plan (1) Duodenal stricture Narrative/Plan: History of obstructive jaundice and common hepatic duct stricture. Unsuccessful ERCP 2 subsequent placement of percutaneous biliary drainage tube with negative cytology including brush washings 04/24/2018 at [facility]. No clinical evidence of jaundice admission liver function tests stable; biliary drain leaking around insertion site. Current Visit: Yes Status: Acute Code(s): K31.5 - OBSTRUCTION OF DUODENUM SNOMED Code(s): 40235913 (2) Acute renal failure Current Visit: Yes Status: Acute Code(s): N17.9 - ACUTE KIDNEY FAILURE, UNSPECIFIED SNOMED Code(s): 55352834 Plan: 1. Case discussed with IR for biliary drain assessment r/o occlusion; biliary drainage bag recommended and place to dependent drainage if no improvement in biliary leakage IR recommended noncontrast CT abdomen for confirmation of drain placement. Continue to flush drain per protocol. Will reevaluate in a.m. 2. Daughter at bedside plan of care discussed and she is agreeable. Assessment and plan of care discussed with Dr. Ballard
[2018-05-03] MEDS: PIPERACILLIN-TAZOBACTAM 3.375 GM in DEXTROSE/WATER 1 50ML.BAG IVPB SCH ×2 (08:55→23:10)
[2018-05-03] MEDS ORDERED: FLUCONAZOLE IN NACL,ISO-OSM 200 MG in SALINE 1 100ML.BAG IVPB SCH (09:00)
[2018-05-03] MEDS ORDERED: ANIDULAFUNGIN 200 MG in SODIUM CHLORIDE 0.9% 200 ML IVPB ONE (10:30)
[2018-05-03 12:33] LABS: Glucose,Whole Blood 92 mg/dL (75-99)
--- NOTE | 2018-05-03 13:02 | CDI ---
Last Revision, September 2017 Documentation Clarification Form Date: 05/01/2018 10:36:00 AM From: Naomi LaTAMMY, CCDS Admit Date: 04/30/2018 6:29:00 AM Patient Name: Bita Mayfield Visit Number: [id number] Discharge Date: ATTENTION: The Clinical Documentation Specialists (CDI) and [facility] Coding Staff appreciate your assistance in clarifying documentation. Please respond to the clarification below the line at the bottom and electronically sign. The CDI & [facility] Coding staff will review the response and follow-up if needed. Please note: Queries are made part of the Legal Health Record. If you have any questions, please contact the author of this message via ITS. Dr. Nigel Luna: A diagnosis of anemia lacks specificity to accurately reflect your patients severity of condition and clarification is needed. History/Risk Factors: Recently had biliary drain placed at [facility] for obstructive jaundice. Clinical indicators: Presented with fatigue, generalized weakness & elevated blood sugar. Patient's appetite has been decreased, BMI is 19.5. Hemoglobin: 9.5, 9.3 Hematocrit: 30.1, 29.7 Home Rx: Protonix, Lopressor, Insulin sq, Amaryl, Eliquis Treatment: IV fluid bolus, Insulin sq, IV NaBicarb, IV Ampicillin, GI & Urology consult. In order to capture the severity of condition, please clarify the type of anemia and etiology if known: Acute blood loss anemia Acute on chronic blood loss anemia Chronic anemia Blood loss Hemolytic Simple Iron deficiency anemia Drug induced anemia Nutritional anemia Anemia of chronic kidney disease Unable to determine Other, please specify Please continue to document in your progress notes and discharge summary in order to capture severity of illness and risk of mortality. Include clinical findings that support your diagnosis. MTDD
[2018-05-03 14:14] LABS: Potassium 3.3 mmol/L (3.5-5.1)
[2018-05-03 17:45] LABS: Glucose,Whole Blood 112 mg/dL (75-99)
[2018-05-03] MEDS ORDERED: SODIUM CHLORIDE 0.9% 250 ML IV ONE (21:30)
[2018-05-03 21:45] LABS: Glucose,Whole Blood 298 mg/dL (75-99)
--- NOTE | 2018-05-03 22:10 | PN ---
PROGRESS NOTE CHIEF COMPLAINT: Re-evaluation. HISTORY OF PRESENT ILLNESS: This is an 87-year-old who was admitted to the hospital with altered mental status, azotemia and fungemia. The patient yesterday had significant respiratory distress and suggestion of acute pulmonary edema. The patient's breathing is somewhat improved this morning. At the time when the patient was fairly tachypneic, discussions with the family were held and the patient's family did elect initially comfort measures and then subsequently decided on NO CODE. The patient is being continued on antibiotics. The patient has been seen by ID and antibiotics have been changed to Eraxis in place of the Diflucan. The patient continues on IV Lasix. Urine output is improving. Patient's potassium was 3.3 today. CO2 content is up to 25, BUN 70, creatinine 2.24. REVIEW OF SYSTEMS: NEURO: Arousable but gives a blank look. Lethargic. Does move upper extremities and does assist in turning. CARDIAC: No arrhythmia reported. Patient has a pacemaker. GI: No reported nausea, vomiting. Appetite fair. No abdominal pain, diarrhea. No bowel movement. : No symptoms. Patient has an IDC now. EXTREMITIES: No edema. PHYSICAL EXAMINATION: Vital signs revealed temperature 97.4, pulse 90, respirations 22, blood pressure 93/50, pulse ox 99% on 2 L. HEENT: Normocephalic. NECK: No JVD. CHEST: Clear to auscultation with decreased air flow, right base. CARDIAC: Normal S1, S2 with no gallops. Systolic murmur 2/6, left sternal border. ABDOMEN: Soft. Bowel sounds present. Extremities reveal trace edema. Neurologically she is lethargic. Minimal communication. LABORATORY ASSESSMENT: Sodium 142, potassium 3.3, chloride 106, CO2 content 25, BUN 70, creatinine 2.24, calcium 8.0. ASSESSMENT: 1. Acute pulmonary edema/acute congestive cardiac failure secondary to diastolic dysfunction and fluid overload with renal failure. 2. Acute renal failure. 3. Fungemia. 4. Biliary obstruction with drainage tube. 5. Debilitative status. 6. Stage I decubitus. 7. Anemia, chronic. 8. Metabolic encephalopathy. PLAN: The patient is stable. Continue present medical regimen. Patient's condition was discussed with the daughter. Prognosis is guarded. MMODL / IJN: [id number] /
--- NOTE | 2018-05-03 22:41 | P.CONS ---
History of Present Illness - Reason for Consult Consult date: 05/03/18 - Chief Complaint weakness - History of Present Illness 87-year-old female presents to the emergency center home setting where she is cared for by her daughter and son-in-law. She's had a very significant recent medical history in that she developed obstructive jaundice. ERCP was attempted at this facility because it could not be performed she was transferred to [facility] for further intervention. Despite ultrasound -guided ERCP, the probe could not be passed. and consequently because she was ill and percutaneous biliary drain was placed to relieve her obstructive jaundice. Eventually there was arepeat procedure and brushings from the biliary duct were performed and dictated to this point reveals no evidence of underlying malignancy. The patient was treated during her hospital stays and was discharged home on routine medications but the family relate on no antibiotics. Presents to Hospital increasing weakness large amount of drainage was coming around the percutaneous cholecystostomy tube. With evidence of sepsis and fungemia the infectious diseases consultation was requested. The available review reveals that the fungemia is new she had sarah urinary in the past. The patient's status did decline and there was a transient time where she was under comfort care protocol, the family however did not desire this to continue and she is now back to full care but DO NOT RESUSCITATE, which is appropriate. The patient at this time comfortable she's having some difficulty expectorating her secretions other than this she is unable to eat the day today, she is drinking liquids without great difficulty. 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 She raised 7 children. No experience. No international travel. No Animals in the home Smoking Status: Never smoker Past Alcohol Use History: None Reported Past Drug Use History: None Reported - Past Family History Mother Family Medical History: Diabetes Mellitus Medications and Allergies Home Medications and Allergies Comment(s): Current Medications Atropine Sulfate (Isopto Atropine 1% 5ml) 2 drops SUBLINGUAL Q4HR PRN PRN Reason: Excess Secretions Furosemide (Lasix) 40 mg IV Q8HR [facility] Last Admin: 05/03/18 15:16 Dose: 40 mg Guaifenesin (Mucinex) 600 mg PO Q12HR [facility] Sodium Chloride (Saline 0.9%) 1,000 mls @ 10 mls/hr IV .Q24H [facility] Last Admin: 05/02/18 19:30 Dose: 10 mls/hr Piperacillin/Tazobactam/ (Dextrose 3.375 gm/ IV Solution) 50 mls @ 12.5 mls/hr IVPB Q12HR [facility] Last Admin: 05/03/18 08:55 Dose: 12.5 mls/hr Anidulafungin 100 mg/ Sodium (Chloride) 100 mls @ 84 mls/hr IVPB DAILY [facility] Sodium Chloride (Saline 0.9%) 1,000 mls @ 75 mls/hr IV .[id number] [facility] Insulin Aspart (Novolog) 0 unit SQ ACHS [facility]; Protocol Last Admin: 05/03/18 17:13 Dose: Not Given Lorazepam (Ativan) 1 mg IV Q6HR PRN PRN Reason: Anxiety Morphine Sulfate (Morphine Sulfate (Inj)) 2 mg IV Q15M PRN PRN Reason: Breakthrough Pain Last Admin: 05/02/18 23:25 Dose: 1 mg Morphine Sulfate (Morphine Sulfate (Inj)) 4 mg IV Q15M PRN PRN Reason: Breakthrough Pain Ondansetron HCl (Zofran) 4 mg IVP Q8HR PRN PRN Reason: Nausea/emesis Scopolamine (Transderm-Scop 1.5mg/72hr Patch) 1 patch TRANSDERM Q72H PRN PRN Reason: Secretions Home Medications Medication Instructions Recorded Confirmed Type Brimonidine Tartrate [Alphagan P 1 drops BOTH EYES BID@0900,1800 03/10/18 History 0.2% Ophth Soln] Latanoprost [Xalatan 0.005%] 1 drop BOTH EYES HS@2200 03/10/18 04/30/18 History Timolol 0.5% Ophth Soln [Timoptic 1 drop BOTH EYES BID@0900,1800 03/10/18 History 0.5% Ophth Soln] Pantoprazole [Protonix] 40 mg PO HARPREET-BRKFST #30 tablet. 03/14/18 04/30/18 Rx Apixaban [Eliquis] 2.5 mg PO BID #60 tab 03/20/18 04/30/18 Rx Metoprolol Tartrate [Lopressor] 50 mg PO BID #60 tab 03/20/18 04/30/18 Rx Glimepiride [Amaryl] 1.5 mg PO BID 04/30/18 04/30/18 History Insulin Glargine,Hum.rec.anlog 15 unit SQ HS 04/30/18 04/30/18 History [Lantus Solostar] Allergies Allergy/AdvReac Type Severity Reaction Status Date / Time No Known Allergies Allergy Verified 04/30/18 07:07 Physical Exam Vitals: Vital Signs Temp Pulse Resp BP Pulse Ox 05/03/18 15:00 98.8 F 94 16 103/62 97 05/03/18 07:00 97.4 F L 90 22 93/50 99 05/03/18 03:19 28 H 05/03/18 00:05 30 H Intake and Output 05/03/18 05/03/18 05/03/18 06:59 14:59 22:59 Intake Total 0 250 Output Total 2200 Balance -2200 250 Intake: Intake, IV Titration 250 Amount Anidulafungin 100 mg In 100 Sodium Chloride 0.9% 100 ml @ 84 mls/hr IVPB DAILY [facility] Rx#:[id number] Fluconazole in NaCl,Iso- 100 Osm 200 mg In Saline 1 100ml.bag @ 100 mls/hr IVPB DAILY [facility] Rx#: [id number] Piperacillin-Tazobactam 3 50 .375 gm In Dextrose/Water 1 50ml.bag @ 12.5 mls/hr IVPB Q12HR [facility] Rx#: [id number] Oral 0 Output: Urine 2200 Straight 1100 Other: Voiding Method Indwelling Catheter Indwelling Catheter # Voids 0 0 # Bowel Movements 0 0 Weight 51.483 kg 79-year-old female who is mostly comfortable that has some difficulty expectorating thick secretion. HEENT: Anicteric conjunctiva are pink andmildly dry nasal mucosa grossly intact without significant lesions, there is no thrush.oral cavity is dry Neck: The neck is supple without significant lymphadenopathy or thyromegaly. Lungs: Good bilateral air entry without significant crackles or wheezing. There is no significant bronchial sounds. There is no egophony or dullness. Heart: Regular rate and rhythm with an audible S1-S2, no S3 no S4. There is no significant murmur click or rub, PMI was nondisplaced. Abdomen: Positive bowel sounds soft and nontender without palpable masses or organomegaly. the abdomen is nonrigid, the percutaneous cholecystostomy tube is with some bilious drainage into the bag and scant drainage around the tube which apparently is considerably improved from prior. Extremities: the upper and lower extremities show evidence of the significant joint destruction from her long-term history of rheumatoid arthritis, no significant edema at this time Neuro: the patient is awake and responds better to her family than to the caretakers that are present. She doesn't usually drink from a straw cup of water without choking or gagging. Results CBC & Chem 7: 05/01/18 08:21 05/03/18 13:14 Labs: Abnormal Lab Results - Last 24 Hours (Table) 05/03/18 05/03/18 05/03/18 Range/Units 07:22 07:51 13:14 Potassium 3.3 L (3.5-5.1) mmol/L BUN 70 H (7-17) mg/dL Creatinine 2.24 H (0.52-1.04) mg/dL POC Glucose (mg/dL) 51 L 225 H (75-99) mg/dL Calcium 8.0 L (8.4-10.2) mg/dL 05/03/18 05/03/18 Range/Units 17:11 21:40 Potassium (3.5-5.1) mmol/L BUN (7-17) mg/dL Creatinine (0.52-1.04) mg/dL POC Glucose (mg/dL) 112 H 298 H (75-99) mg/dL Calcium (8.4-10.2) mg/dL Microbiology - Last 24 Hours (Table) 04/30/18 03:50 Blood Culture Gram Stain - Final Blood Blood Culture - Final Sarah albicans Laboratory Results WBC 21.2 k/uL (3.8-10.6) H 05/01/18 08:21 RBC 3.21 m/uL (3.80-5.40) L 05/01/18 08:21 Hgb 9.3 gm/dL (11.4-16.0) L 05/01/18 08:21 Hct 29.7 % (34.0-46.0) L 05/01/18 08:21 MCV 92.4 fL (80.0-100.0) 05/01/18 08:21 MCH 29.0 pg (25.0-35.0) 05/01/18 08:21 MCHC 31.4 g/dL (31.0-37.0) 05/01/18 08:21 RDW 14.1 % (11.5-15.5) 05/01/18 08:21 Plt Count 336 k/uL (150-450) 05/01/18 08:21 Neutrophils % 83 % 04/30/18 03:50 Lymphocytes % 11 % 04/30/18 03:50 Monocytes % 5 % 04/30/18 03:50 Eosinophils % 0 % 04/30/18 03:50 Basophils % 0 % 04/30/18 03:50 Neutrophils # 17.9 k/uL (1.3-7.7) H 04/30/18 03:50 Lymphocytes # 2.3 k/uL (1.0-4.8) 04/30/18 03:50 Monocytes # 1.0 k/uL (0-1.0) 04/30/18 03:50 Eosinophils # 0.1 k/uL (0-0.7) 04/30/18 03:50 Basophils # 0.0 k/uL (0-0.2) 04/30/18 03:50 PT 10.4 sec (9.0-12.0) 04/30/18 03:50 INR 1.1 (<1.2) 04/30/18 03:50 APTT 26.8 sec (22.0-30.0) 04/30/18 03:50 Sodium 142 mmol/L (137-145) 05/03/18 13:14 Potassium 3.3 mmol/L (3.5-5.1) L 05/03/18 13:14 Chloride 106 mmol/L (98-107) 05/03/18 13:14 Carbon Dioxide 25 mmol/L (22-30) 05/03/18 13:14 Anion Gap 11 mmol/L 05/03/18 13:14 BUN 70 mg/dL (7-17) H 05/03/18 13:14 Creatinine 2.24 mg/dL (0.52-1.04) H 05/03/18 13:14 Est GFR (CKD-EPI)AfAm 22 (>60 ml/min/1.73 sqM) 05/03/18 13:14 Est GFR (CKD-EPI)NonAf 19 (>60 ml/min/1.73 sqM) 05/03/18 13:14 Glucose 83 mg/dL (74-99) 05/03/18 13:14 POC Glucose (mg/dL) 298 mg/dL (75-99) H 05/03/18 21:40 POC Glu [employer] Helper ID Nasreen Cardozo 05/03/18 21:[address] Glu mg/dL 186 04/30/18 03:50 Hemoglobin A1c 8.1 % (4.0-6.0) H 04/30/18 03:50 Plasma Lactic Acid Wily 1.9 mmol/L (0.7-2.0) 04/30/18 03:50 Calcium 8.0 mg/dL (8.4-10.2) L 05/03/18 13:14 Total Bilirubin 0.8 mg/dL (0.2-1.3) 05/02/18 16:42 AST 74 U/L (14-36) H 05/02/18 16:42 ALT 19 U/L (9-52) 05/02/18 16:42 Alkaline Phosphatase 133 U/L (38-126) H 05/02/18 16:42 Ammonia 16 umol/L (<30) 04/30/18 03:50 Total Creatine Kinase <20 U/L (30-135) L 04/30/18 03:50 CK-MB (CK-2) 0.8 ng/mL (0.0-2.4) 04/30/18 03:50 CK-MB (CK-2) Rel Index 04/30/18 03:50 Troponin I <0.012 ng/mL (0.000-0.034) 04/30/18 03:50 Total Protein 5.0 g/dL (6.3-8.2) L 05/02/18 16:42 Albumin 2.3 g/dL (3.5-5.0) L 05/02/18 16:42 Urine Color Red 04/30/18 11:00 Urine Appearance Turbid (Clear) H 04/30/18 11:00 Urine pH 5.5 (5.0-8.0) 04/30/18 11:00 Ur Specific [place] 1.015 (1.001-1.035) 04/30/18 11:00 Urine Protein 2+ (Negative) H 04/30/18 11:00 Urine Glucose (UA) 1+ (Negative) H 04/30/18 11:00 Urine Ketones Negative (Negative) 04/30/18 11:00 Urine Blood Large (Negative) H 04/30/18 11:00 Urine Nitrite Negative (Negative) 04/30/18 11:00 Urine Bilirubin Negative (Negative) 04/30/18 11:00 Urine Urobilinogen <2.0 mg/dL (<2.0) 04/30/18 11:00 Ur Leukocyte Esterase Large (Negative) H 04/30/18 11:00 Urine RBC >182 /hpf (0-5) H 04/30/18 11:00 Urine WBC >182 /hpf (0-5) H 04/30/18 11:00 Urine WBC Clumps Many /hpf (None) H 04/30/18 11:00 Urine Yeast (Budding) Many /hpf (None) H 04/30/18 11:00 Urine Osmolality 362 mosm/kg (50-1400) 04/30/18 11:00 Ur Random Sodium 24 mmol/L 04/30/18 11:00 Microbiology 04/30/18 03:50 Blood Blood Culture Gram Stain - Final 04/30/18 03:50 Blood Blood Culture - Final Sarah albicans 04/30/18 11:00 Urine,Catheterized Urine Culture - Final Sarah albicans 04/30/18 03:50 Blood Blood Culture - Final Assessment and Plan (1) Fungemia Narrative/Plan: 87 year old woman with recent hospitalizations regarding the obstruction of her biliary tract as well as the bilateral hydronephrosis. When she is at the outside hospital she did have percutaneous cholecystostomy tube placed as well as bilateral ureteral stents placed. She now presents feeling considerably weaker and the family was very concerned. She has not been found evidence of fungemia, and it was candidate her urine. Although with her current level illness this is more likely that the infection is coming from the biliary tract , with the instrumentation to the ureters is also of some concern. Given that she has been at an outside facility will be concerned that fluconazole may not be effective and Eraxis since been requested she is also receiving antibiotic therapy pending further culture results regarding the potential for cholangitis , fortunately at this time her bilirubin is normal at 0.8 but she is also adequately drained at this time. She's had acute and chronic renal failure and is doing slightly better but appears to be a bit dehydrated today and we've asked for a fluid bolus and some ongoing IV hydration especially since her oral intake is not ideal at this time. Follow blood cultures been requested Discussed with the family there is a high likelihood that the temperature discharge she could need intravenous antifungal that they could do in the home setting. Once her fungemia has cleared we could arrange for IV access. She has been seen by urology no plans of any further intervention at this time.if however the fungemia does not rapidly come under control she may require exchange of her ureteral stents. Her leukocytosis appears redecorated at the current fungemia and underlying sepsis, Current Visit: Yes Status: Acute Code(s): B49 - UNSPECIFIED MYCOSIS SNOMED Code(s): 062799953 (2) Hydronephrosis Current Visit: No Status: Acute Code(s): N13.30 - UNSPECIFIED HYDRONEPHROSIS SNOMED Code(s): 89542718 (3) Obstructive jaundice Current Visit: Yes Status: Acute Code(s): K83.8 - OTHER SPECIFIED DISEASES OF BILIARY TRACT SNOMED Code(s): 04145739
[2018-05-03] MEDS: guaiFENesin 600 MG TABLET.ER PO SCH (23:11)
[2018-05-03] MEDS: MORPHINE SULFATE 2 MG/ML SYRINGE IV PRN (23:11)
[2018-05-03] MEDS: SODIUM CHLORIDE 0.9% 1,000 ML IV SCH ×2 (23:45)
[2018-05-04 02:24] LABS: Glucose,Whole Blood 371 mg/dL (75-99)
[2018-05-04 04:56] LABS: Glucose,Whole Blood 322 mg/dL (75-99)
[2018-05-04] MEDS: MORPHINE SULFATE 2 MG/ML SYRINGE IV PRN ×2 (06:48→14:04)
[2018-05-04 07:10] LABS: Glucose,Whole Blood 383 mg/dL (75-99)
[2018-05-04 08:24] LABS: Basophils # (A) 0.1 k/uL (0-0.2); Basophils % (A) 1 %; Eosinophils % (A) 0 %; HCT 27.2 % (34.0-46.0); HGB 8.4 gm/dL (11.4-16.0); Hypochromasia Slight; Lymphocytes # (A) 0.9 k/uL (1.0-4.8); Lymphocytes % (A) 10 %; MCH 28.3 pg (25.0-35.0); MCHC 30.9 g/dL (31.0-37.0); MCV 91.5 fL (80.0-100.0); Mean Platelet Volume 8.1; Monocytes # (A) 0.3 k/uL (0-1.0); Monocytes % (A) 3 %; Neutrophils # (A) 8.1 k/uL (1.3-7.7); Neutrophils % (A) 84 %; Platelet Count 264 k/uL (150-450); RBC 2.98 m/uL (3.80-5.40); RDW 14.4 % (11.5-15.5); WBC 9.7 k/uL (3.8-10.6)
[2018-05-04] MEDS: PIPERACILLIN-TAZOBACTAM 3.375 GM in DEXTROSE/WATER 1 50ML.BAG IVPB SCH ×2 (08:24→20:12)
[2018-05-04] MEDS: BRIMONIDINE TARTRATE 0.2% DROPS 5 ML BTL BOTH EYES SCH ×2 (08:25→20:13)
[2018-05-04] MEDS: TIMOLOL 0.5% OPHTH DROPS 5 ML BTL BOTH EYES SCH ×2 (08:25→21:11)
[2018-05-04] MEDS: INSULIN ASPART 100 UNIT/ML 1 ML 10 ML VIAL SQ SCH ×4 (08:25→21:09)
[2018-05-04] MEDS: FUROSEMIDE 10 MG/ML 4 ML VIAL IV SCH ×3 (08:26→22:45)
[2018-05-04 08:45] LABS: Potassium 3.8 mmol/L (3.5-5.1); Total Bilirubin 0.6 mg/dL (0.2-1.3); Total Protein 4.5 g/dL (6.3-8.2)
[2018-05-04] MEDS: SODIUM CHLORIDE 0.9% 1,000 ML IV SCH (09:38)
[2018-05-04] MEDS: APIXABAN 2.5 MG TABLET PO SCH ×2 (09:38→20:12)
[2018-05-04] MEDS: guaiFENesin 600 MG TABLET.ER PO SCH ×2 (09:38→20:12)
[2018-05-04] MEDS: ANIDULAFUNGIN 100 MG in SODIUM CHLORIDE 0.9% 100 ML IVPB SCH (09:40)
--- NOTE | 2018-05-04 09:52 | P.PN ---
Subjective Progress Note Date: 05/04/18 Principal diagnosis: History of duodenal stricture Biliary drain connected to collection bag yesterday with resolution of leakage around insertion site. Approximately 200 mL 24 hours. Objective - Vital Signs Vital signs: Vital Signs Temp 97.7 F 05/04/18 06:27 Pulse 86 05/04/18 06:27 Resp 44 H 05/04/18 06:27 BP 110/54 05/04/18 06:27 Pulse Ox 96 05/03/18 23:15 Intake & Output 05/03/18 05/04/18 05/04/18 18:59 06:59 18:59 Intake Total 250 600 Output Total 825 1300 Balance -575 -700 Weight 51.483 kg Intake: Intake, IV Titration 250 Amount Anidulafungin 100 mg In 100 Sodium Chloride 0.9% 100 ml @ 84 mls/hr IVPB DAILY [facility] Rx#:[id number] Fluconazole in NaCl,Iso- 100 Osm 200 mg In Saline 1 100ml.bag @ 100 mls/hr IVPB DAILY [facility] Rx#: [id number] Piperacillin-Tazobactam 3 50 .375 gm In Dextrose/Water 1 50ml.bag @ 12.5 mls/hr IVPB Q12HR [facility] Rx#: [id number] Oral 600 Output: Drainage 200 Right Abdomen 200 Urine 825 1100 Straight 550 Other: Voiding Method Indwelling Catheter Indwelling Catheter # Voids 0 # Bowel Movements 0 0 - Exam General appearance: The patient is sleeping somnolent, oriented, in no acute distress. HET: Head is normocephalic and atraumatic. Pupils are equal and reactive. Oropharynx is clear without lesions. Neck: Supple without lymphadenopathy. Trachea midline. Heart: S1 S2. Regular rate and rhythm. Lungs: No crackles or wheezes are heard. Abdomen: Soft, nontender, nondistended with bowel sounds. Biliary drainage tube without leakage draining collection bag. No peritoneal signs. No palpable organomegaly or masses. - Labs CBC & Chem 7: 05/04/18 07:53 05/04/18 07:53 Labs: Abnormal Lab Results - Last 24 Hours (Table) 05/03/18 05/03/18 05/03/18 Range/Units 13:14 17:11 21:40 RBC (3.80-5.40) m/uL Hgb (11.4-16.0) gm/dL Hct (34.0-46.0) % MCHC (31.0-37.0) g/dL Neutrophils # (1.3-7.7) k/uL Lymphocytes # (1.0-4.8) k/uL Sodium (137-145) mmol/L Potassium 3.3 L (3.5-5.1) mmol/L Carbon Dioxide (22-30) mmol/L BUN 70 H (7-17) mg/dL Creatinine 2.24 H (0.52-1.04) mg/dL Glucose (74-99) mg/dL POC Glucose (mg/dL) 112 H 298 H (75-99) mg/dL Calcium 8.0 L (8.4-10.2) mg/dL AST (14-36) U/L Total Protein (6.3-8.2) g/dL Albumin (3.5-5.0) g/dL 05/04/18 05/04/18 05/04/18 Range/Units 02:07 04:47 07:07 RBC (3.80-5.40) m/uL Hgb (11.4-16.0) gm/dL Hct (34.0-46.0) % MCHC (31.0-37.0) g/dL Neutrophils # (1.3-7.7) k/uL Lymphocytes # (1.0-4.8) k/uL Sodium (137-145) mmol/L Potassium (3.5-5.1) mmol/L Carbon Dioxide (22-30) mmol/L BUN (7-17) mg/dL Creatinine (0.52-1.04) mg/dL Glucose (74-99) mg/dL POC Glucose (mg/dL) 371 H 322 H 383 H (75-99) mg/dL Calcium (8.4-10.2) mg/dL AST (14-36) U/L Total Protein (6.3-8.2) g/dL Albumin (3.5-5.0) g/dL 05/04/18 05/04/18 Range/Units 07:53 07:53 RBC 2.98 L (3.80-5.40) m/uL Hgb 8.4 L (11.4-16.0) gm/dL Hct 27.2 L (34.0-46.0) % MCHC 30.9 L (31.0-37.0) g/dL Neutrophils # 8.1 H (1.3-7.7) k/uL Lymphocytes # 0.9 L (1.0-4.8) k/uL Sodium 136 L (137-145) mmol/L Potassium (3.5-5.1) mmol/L Carbon Dioxide 21 L (22-30) mmol/L BUN 66 H (7-17) mg/dL Creatinine 2.78 H (0.52-1.04) mg/dL Glucose 370 H (74-99) mg/dL POC Glucose (mg/dL) (75-99) mg/dL Calcium 7.0 L (8.4-10.2) mg/dL AST 13 L (14-36) U/L Total Protein 4.5 L (6.3-8.2) g/dL Albumin 2.0 L (3.5-5.0) g/dL Microbiology - Last 24 Hours (Table) 04/30/18 03:50 Blood Culture Gram Stain - Final Blood Blood Culture - Final Yanelis albicans Assessment and Plan (1) Duodenal stricture Narrative/Plan: History of obstructive jaundice and common hepatic duct stricture. Unsuccessful ERCP 2 subsequent placement of percutaneous biliary drainage tube with negative cytology including brush washings 04/24/2018 at [facility]. No clinical evidence of jaundice admission liver function tests stable; biliary drain leaking around insertion site. Current Visit: Yes Status: Acute Code(s): K31.5 - OBSTRUCTION OF DUODENUM SNOMED Code(s): 63983911 (2) Acute renal failure Current Visit: Yes Status: Acute Code(s): N17.9 - ACUTE KIDNEY FAILURE, UNSPECIFIED SNOMED Code(s): 00590356 Plan: 1. Continue with flushing biliary drain per protocol. No further workup at this time. Leakage has improved. Assessment and plan a care discussed with Dr. Ballard
[2018-05-04 12:07] LABS: Glucose,Whole Blood 257 mg/dL (75-99)
--- NOTE | 2018-05-04 14:20 | P.PN ---
Subjective Progress Note Date: 05/04/18 87-year-old female presents to the emergency center home setting where she is cared for by her daughter and son-in-law. She's had a very significant recent medical history in that she developed obstructive jaundice. ERCP was attempted at this facility because it could not be performed she was transferred to [facility] for further intervention. Despite ultrasound -guided ERCP, the probe could not be passed. and consequently because she was ill and percutaneous biliary drain was placed to relieve her obstructive jaundice. Eventually there was arepeat procedure and brushings from the biliary duct were performed and dictated to this point reveals no evidence of underlying malignancy. The patient was treated during her hospital stays and was discharged home on routine medications but the family relate on no antibiotics. Presents to Hospital increasing weakness large amount of drainage was coming around the percutaneous cholecystostomy tube. With evidence of sepsis and fungemia the infectious diseases consultation was requested. The available review reveals that the fungemia is new she had sarah urinary in the past. The patient's status did decline and there was a transient time where she was under comfort care protocol, the family however did not desire this to continue and she is now back to full care but DO NOT RESUSCITATE, which is appropriate. The patient at this time comfortable she's having some difficulty expectorating her secretions other than this she is unable to eat the day today, she is drinking liquids without great difficulty. Comfortable this afternoon, with some tachypnea.Not responding to observer. Objective - Vital Signs Vital signs: Vital Signs Temp 97.7 F 05/04/18 06:27 Pulse 86 05/04/18 08:00 Resp 30 H 05/04/18 08:00 BP 110/54 05/04/18 06:27 Pulse Ox 96 05/03/18 23:15 Intake & Output 05/03/18 05/04/18 05/04/18 18:59 06:59 18:59 Intake Total 250 600 Output Total 825 1300 Balance -575 -700 Weight 51.483 kg Intake: Intake, IV Titration 250 Amount Anidulafungin 100 mg In 100 Sodium Chloride 0.9% 100 ml @ 84 mls/hr IVPB DAILY [facility] Rx#:[id number] Fluconazole in NaCl,Iso- 100 Osm 200 mg In Saline 1 100ml.bag @ 100 mls/hr IVPB DAILY [facility] Rx#: [id number] Piperacillin-Tazobactam 3 50 .375 gm In Dextrose/Water 1 50ml.bag @ 12.5 mls/hr IVPB Q12HR MANUEL Rx#: [id number] Oral 600 Output: Drainage 200 Right Abdomen 200 Urine 825 1100 Straight 550 Other: Voiding Method Indwelling Catheter Indwelling Catheter Indwelling Catheter # Voids 0 # Bowel Movements 0 0 - Exam 87-year-old female who is mostly comfortable that has some difficulty expectorating thick secretion. HEENT: Anicteric conjunctiva are pink andmildly dry nasal mucosa grossly intact without significant lesions, there is no thrush.oral cavity is dry Neck: The neck is supple without significant lymphadenopathy or thyromegaly. Lungs: Good bilateral air entry without significant crackles or wheezing. There is no significant bronchial sounds. There is no egophony or dullness. Heart: Regular rate and rhythm with an audible S1-S2, no S3 no S4. There is no significant murmur click or rub, PMI was nondisplaced. Abdomen: Positive bowel sounds soft and nontender without palpable masses or organomegaly. the abdomen is nonrigid, the percutaneous cholecystostomy tube is with some bilious drainage into the bag and scant drainage around the tube which apparently is considerably improved from prior. Extremities: the upper and lower extremities show evidence of the significant joint destruction from her long-term history of rheumatoid arthritis, no significant edema at this time Neuro: the patient is awake eyes open no interaction - Labs CBC & Chem 7: 05/04/18 07:53 05/04/18 07:53 Labs: Abnormal Lab Results - Last 24 Hours (Table) 05/03/18 05/03/18 05/03/18 Range/Units 13:14 17:11 21:40 RBC (3.80-5.40) m/uL Hgb (11.4-16.0) gm/dL Hct (34.0-46.0) % MCHC (31.0-37.0) g/dL Neutrophils # (1.3-7.7) k/uL Lymphocytes # (1.0-4.8) k/uL Sodium (137-145) mmol/L Potassium 3.3 L (3.5-5.1) mmol/L Carbon Dioxide (22-30) mmol/L BUN 70 H (7-17) mg/dL Creatinine 2.24 H (0.52-1.04) mg/dL Glucose (74-99) mg/dL POC Glucose (mg/dL) 112 H 298 H (75-99) mg/dL Calcium 8.0 L (8.4-10.2) mg/dL AST (14-36) U/L Total Protein (6.3-8.2) g/dL Albumin (3.5-5.0) g/dL 05/04/18 05/04/18 05/04/18 Range/Units 02:07 04:47 07:07 RBC (3.80-5.40) m/uL Hgb (11.4-16.0) gm/dL Hct (34.0-46.0) % MCHC (31.0-37.0) g/dL Neutrophils # (1.3-7.7) k/uL Lymphocytes # (1.0-4.8) k/uL Sodium (137-145) mmol/L Potassium (3.5-5.1) mmol/L Carbon Dioxide (22-30) mmol/L BUN (7-17) mg/dL Creatinine (0.52-1.04) mg/dL Glucose (74-99) mg/dL POC Glucose (mg/dL) 371 H 322 H 383 H (75-99) mg/dL Calcium (8.4-10.2) mg/dL AST (14-36) U/L Total Protein (6.3-8.2) g/dL Albumin (3.5-5.0) g/dL 05/04/18 05/04/18 05/04/18 Range/Units 07:53 07:53 11:51 RBC 2.98 L (3.80-5.40) m/uL Hgb 8.4 L (11.4-16.0) gm/dL Hct 27.2 L (34.0-46.0) % MCHC 30.9 L (31.0-37.0) g/dL Neutrophils # 8.1 H (1.3-7.7) k/uL Lymphocytes # 0.9 L (1.0-4.8) k/uL Sodium 136 L (137-145) mmol/L Potassium (3.5-5.1) mmol/L Carbon Dioxide 21 L (22-30) mmol/L BUN 66 H (7-17) mg/dL Creatinine 2.78 H (0.52-1.04) mg/dL Glucose 370 H (74-99) mg/dL POC Glucose (mg/dL) 257 H (75-99) mg/dL Calcium 7.0 L (8.4-10.2) mg/dL AST 13 L (14-36) U/L Total Protein 4.5 L (6.3-8.2) g/dL Albumin 2.0 L (3.5-5.0) g/dL Microbiology - Last 24 Hours (Table) 04/30/18 03:50 Blood Culture Gram Stain - Final Blood Blood Culture - Final Sarah albicans Laboratory Results WBC 9.7 k/uL (3.8-10.6) 05/04/18 07:53 RBC 2.98 m/uL (3.80-5.40) L 05/04/18 07:53 Hgb 8.4 gm/dL (11.4-16.0) L 05/04/18 07:53 Hct 27.2 % (34.0-46.0) L 05/04/18 07:53 MCV 91.5 fL (80.0-100.0) 05/04/18 07:53 MCH 28.3 pg (25.0-35.0) 05/04/18 07:53 MCHC 30.9 g/dL (31.0-37.0) L 05/04/18 07:53 RDW 14.4 % (11.5-15.5) 05/04/18 07:53 Plt Count 264 k/uL (150-450) 05/04/18 07:53 Neutrophils % 84 % 05/04/18 07:53 Lymphocytes % 10 % 05/04/18 07:53 Monocytes % 3 % 05/04/18 07:53 Eosinophils % 0 % 05/04/18 07:53 Basophils % 1 % 05/04/18 07:53 Neutrophils # 8.1 k/uL (1.3-7.7) H 05/04/18 07:53 Lymphocytes # 0.9 k/uL (1.0-4.8) L 05/04/18 07:53 Monocytes # 0.3 k/uL (0-1.0) 05/04/18 07:53 Eosinophils # 0.0 k/uL (0-0.7) 05/04/18 07:53 Basophils # 0.1 k/uL (0-0.2) 05/04/18 07:53 Hypochromasia Slight 05/04/18 07:53 PT 10.4 sec (9.0-12.0) 04/30/18 03:50 INR 1.1 (<1.2) 04/30/18 03:50 APTT 26.8 sec (22.0-30.0) 04/30/18 03:50 Sodium 136 mmol/L (137-145) L 05/04/18 07:53 Potassium 3.8 mmol/L (3.5-5.1) 05/04/18 07:53 Chloride 103 mmol/L (98-107) 05/04/18 07:53 Carbon Dioxide 21 mmol/L (22-30) L 05/04/18 07:53 Anion Gap 12 mmol/L 05/04/18 07:53 BUN 66 mg/dL (7-17) H 05/04/18 07:53 Creatinine 2.78 mg/dL (0.52-1.04) H 05/04/18 07:53 Est GFR (CKD-EPI)AfAm 17 (>60 ml/min/1.73 sqM) 05/04/18 07:53 Est GFR (CKD-EPI)NonAf 15 (>60 ml/min/1.73 sqM) 05/04/18 07:53 Glucose 370 mg/dL (74-99) H 05/04/18 07:53 POC Glucose (mg/dL) 257 mg/dL (75-99) H 05/04/18 11:51 POC Glu [employer] Technician ID Daniela Madrigal 05/04/18 11:[address] Glu mg/dL 186 04/30/18 03:50 Hemoglobin A1c 8.1 % (4.0-6.0) H 04/30/18 03:50 Plasma Lactic Acid Wily 1.9 mmol/L (0.7-2.0) 04/30/18 03:50 Calcium 7.0 mg/dL (8.4-10.2) L 05/04/18 07:53 Total Bilirubin 0.6 mg/dL (0.2-1.3) 05/04/18 07:53 AST 13 U/L (14-36) L 05/04/18 07:53 ALT 24 U/L (9-52) 05/04/18 07:53 Alkaline Phosphatase 86 U/L (38-126) 05/04/18 07:53 Ammonia 16 umol/L (<30) 04/30/18 03:50 Total Creatine Kinase <20 U/L (30-135) L 04/30/18 03:50 CK-MB (CK-2) 0.8 ng/mL (0.0-2.4) 04/30/18 03:50 CK-MB (CK-2) Rel Index 04/30/18 03:50 Troponin I <0.012 ng/mL (0.000-0.034) 04/30/18 03:50 Total Protein 4.5 g/dL (6.3-8.2) L 05/04/18 07:53 Albumin 2.0 g/dL (3.5-5.0) L 05/04/18 07:53 Urine Color Red 04/30/18 11:00 Urine Appearance Turbid (Clear) H 04/30/18 11:00 Urine pH 5.5 (5.0-8.0) 04/30/18 11:00 Ur Specific [place] 1.015 (1.001-1.035) 04/30/18 11:00 Urine Protein 2+ (Negative) H 04/30/18 11:00 Urine Glucose (UA) 1+ (Negative) H 04/30/18 11:00 Urine Ketones Negative (Negative) 04/30/18 11:00 Urine Blood Large (Negative) H 04/30/18 11:00 Urine Nitrite Negative (Negative) 04/30/18 11:00 Urine Bilirubin Negative (Negative) 04/30/18 11:00 Urine Urobilinogen <2.0 mg/dL (<2.0) 04/30/18 11:00 Ur Leukocyte Esterase Large (Negative) H 04/30/18 11:00 Urine RBC >182 /hpf (0-5) H 04/30/18 11:00 Urine WBC >182 /hpf (0-5) H 04/30/18 11:00 Urine WBC Clumps Many /hpf (None) H 04/30/18 11:00 Urine Yeast (Budding) Many /hpf (None) H 04/30/18 11:00 Urine Osmolality 362 mosm/kg (50-1400) 04/30/18 11:00 Ur Random Sodium 24 mmol/L 04/30/18 11:00 Microbiology 04/30/18 03:50 Blood Blood Culture Gram Stain - Final 04/30/18 03:50 Blood Blood Culture - Final Sarah albicans 04/30/18 11:00 Urine,Catheterized Urine Culture - Final Sarah albicans 04/30/18 03:50 Blood Blood Culture - Final Assessment and Plan (1) Fungemia Narrative/Plan: 87 year old woman with recent hospitalizations regarding the obstruction of her biliary tract as well as the bilateral hydronephrosis. When she is at the outside hospital she did have percutaneous cholecystostomy tube placed as well as bilateral ureteral stents placed. She now presents feeling considerably weaker and the family was very concerned. She has not been found evidence of fungemia, and it was candidate her urine. Although with her current level illness this is more likely that the infection is coming from the biliary tract , with the instrumentation to the ureters is also of some concern. Given that she has been at an outside facility will be concerned that fluconazole may not be effective and Eraxis since been requested she is also receiving antibiotic therapy pending further culture results regarding the potential for cholangitis , fortunately at this time her bilirubin is normal at 0.8 but she is also adequately drained at this time. She's had acute and chronic renal failure and is doing slightly better but appears to be a bit dehydrated today and we've asked for a fluid bolus and some ongoing IV hydration especially since her oral intake is not ideal at this time. Follow blood cultures been requested Discussed with the family there is a high likelihood that the temperature discharge she could need intravenous antifungal that they could do in the home setting. Once her fungemia has cleared we could arrange for IV access. She has been seen by urology no plans of any further intervention at this time.if however the fungemia does not rapidly come under control she may require exchange of her ureteral stents. Her leukocytosis appears redecorated at the current fungemia and underlying sepsis, 05/04/2018 leukocytosis has improved and no fever is noted today. Little change of mental status. Await follow up blood culture to determine if fungemia has cleared. Continue eraxis for now will be able to consider fluconazole if only candidia albicans is found. continue the zosyn for now while final cultures are awaited. Current Visit: Yes Status: Acute Code(s): B49 - UNSPECIFIED MYCOSIS SNOMED Code(s): 679325525 (2) Hydronephrosis Current Visit: No Status: Acute Code(s): N13.30 - UNSPECIFIED HYDRONEPHROSIS SNOMED Code(s): 10261531 (3) Obstructive jaundice Current Visit: Yes Status: Acute Code(s): K83.8 - OTHER SPECIFIED DISEASES OF BILIARY TRACT SNOMED Code(s): 22470329
[2018-05-04 17:13] LABS: Glucose,Whole Blood 201 mg/dL (75-99)
[2018-05-04 20:59] LABS: Glucose,Whole Blood 308 mg/dL (75-99)
[2018-05-04] MEDS: INSULIN DETEMIR 100 UNIT/ML 10 ML VIAL SQ SCH (21:09)
[2018-05-04] MEDS: LATANOPROST 0.005% OPHTH DROPS 2.5 ML BTL BOTH EYES SCH (21:11)
--- NOTE | 2018-05-04 22:44 | PN ---
PROGRESS NOTE CHIEF COMPLAINT: Re-evaluation. HISTORY OF PRESENT ILLNESS: This 87-year-old female was admitted to the hospital with obtundation and azotemia with acute renal failure. The patient has had obstructive uropathy. The patient's urine culture and blood culture came back showing Yanelis albicans. The patient is on IV antifungal. The patient was on Diflucan, which has been switched by STELLA Lemons to Eraxis. The patient also is on Zosyn. She has a biliary drain for obstructive jaundice. Final pathology report is pending. This was done at [facility] to rule out malignancy. The patient has history of paroxysmal atrial fibrillation. She has rheumatoid arthritis. The patient developed acute respiratory failure secondary to pulmonary edema, felt to be secondary to fluid overload associated with diastolic dysfunction and renal failure. The patient has been diuresed, with some improvement. Yesterday she was given some IV fluid bolus, and after that she became more tachypneic. However, this morning she seems to be more comfortable. She did eat well. No fever. REVIEW OF SYSTEMS: Review of systems is not obtainable from the patient. The patient is verbally unresponsive. She does look at you when called, but very little communication with occasional words. The daughter says she was talking quite a bit yesterday. Review of systems per patient's daughter and nursing: No cough. No fever. No nausea or vomiting. Does eat off and on. No diarrhea. : Has an IDC with adequate urine output. PHYSICAL EXAMINATION: Elderly female, at present in no distress, though she is tachypneic. Vital signs reveal temperature 97.7, pulse 86, respirations 44, blood pressure 110/54, pulse ox 96% on room air. HEENT: Normocephalic. NECK: No JVD. CHEST: Clear to auscultation with decreased air flow in the right base. A few crackles bilaterally. CARDIAC: Distant heart sounds S1, S2 with no gallops. rhythm. Systolic murmur 2/6 at apex. ABDOMEN: Soft, protuberant. Bowel sounds present. Extremities revealed 1+ edema. NEUROLOGICAL: Does assist in turning, but very low communication. LABORATORY ASSESSMENT: Hemoglobin 8.4. White count is down to 9.7. BUN 66, creatinine 2.78. Glucose 370. AST 13, alkaline phosphatase normal at 86. ASSESSMENT: 1. Candidal fungemia. 2. Obstructive jaundice; cholangitis not ruled out. 3. Anemia. 4. Acute renal failure. 5. Obstructive uropathy. 6. Urinary tract infection with yanelis. PLAN: The patient at present is stable. Continue present medical regimen. Patient's condition was discussed with the patient's daughter. Prognosis remains guarded. Continue present regimen of treatment. Please note: The patient does have a stage II decubitus in the sacral area. MMODL / IJN: [id number] /
[2018-05-05 07:16] LABS: Glucose,Whole Blood 89 mg/dL (75-99)
[2018-05-05] MEDS ORDERED: METOPROLOL TARTRATE 5 MG/5 ML VIAL IVP ONE ×3 (07:47→09:08)
[2018-05-05] MEDS: FUROSEMIDE 10 MG/ML 4 ML VIAL IV SCH (07:52)
[2018-05-05] MEDS: INSULIN ASPART 100 UNIT/ML 1 ML 10 ML VIAL SQ SCH ×4 (07:54→21:17)
[2018-05-05] MEDS: SODIUM CHLORIDE 0.9% 1,000 ML IV SCH ×2 (08:10→11:16)
[2018-05-05] MEDS: APIXABAN 2.5 MG TABLET PO SCH ×2 (08:10→20:15)
[2018-05-05] MEDS: guaiFENesin 600 MG TABLET.ER PO SCH ×2 (08:11→20:15)
[2018-05-05] MEDS: BRIMONIDINE TARTRATE 0.2% DROPS 5 ML BTL BOTH EYES SCH ×2 (08:11→20:15)
[2018-05-05] MEDS: PIPERACILLIN-TAZOBACTAM 3.375 GM in DEXTROSE/WATER 1 50ML.BAG IVPB SCH ×2 (08:12→20:17)
[2018-05-05] MEDS: TIMOLOL 0.5% OPHTH DROPS 5 ML BTL BOTH EYES SCH ×2 (08:12→20:16)
[2018-05-05 08:33] LABS: Calcium 7.2 mg/dL (8.4-10.2)
[2018-05-05 08:46] LABS: Potassium 2.8 mmol/L (3.5-5.1)
[2018-05-05] MEDS: ANIDULAFUNGIN 100 MG in SODIUM CHLORIDE 0.9% 100 ML IVPB SCH (09:26)
[2018-05-05] MEDS: INSULIN DETEMIR 100 UNIT/ML 10 ML VIAL SQ SCH ×2 (09:29→21:17)
[2018-05-05] MEDS ORDERED: SODIUM CHLORIDE 0.9% 500 ML IV ONE (09:31)
[2018-05-05] MEDS ORDERED: VERAPAMIL 80 MG TAB PO SCH (11:00)
[2018-05-05] MEDS: POTASSIUM CHLORIDE 20 MEQ in WATER FOR INJECTION 1 100ML.BAG IVPB SCH ×2 (11:09→13:36)
[2018-05-05 11:53] LABS: Glucose,Whole Blood 220 mg/dL (75-99)
[2018-05-05] MEDS ORDERED: METOPROLOL TARTRATE 50 MG TAB PO SCH (12:00)
--- NOTE | 2018-05-05 12:12 | PN ---
PROGRESS NOTE Patient is a 87-year-old white female who was admitted to hospital a week ago with altered mental status, acute renal failure, progressive weakness for the last few days duration. The patient was discharged home from [facility] at which time she had obstructive uropathy and underwent bilateral ureteral stent placement and also during the same hospitalization, she did have external internal biliary catheter placement for obstructive jaundice. During this hospitalization, she was diagnosed with fungemia secondary to Yanelis albicans and presently is being followed by Dr. Lemons and presently on IV Vanco and Diflucan. The patient is very lethargic this morning. Since being in the hospital, he has been having problems with leakage around the biliary catheter site in the right upper quadrant area, which was clamped. It was connected to dependent drainage yesterday and since then, the drainage has somewhat improved, but still continues to soak past several times during the day. She does not complaining of abdominal pain. REVIEW OF SYSTEMS: Could not be obtained as patient is quite obtunded. PHYSICAL EXAMINATION: Vital signs is stable. Blood pressure is 109/58, pulse rate 91, and temperature 97. HEENT examination unremarkable. Conjunctivae pink. Sclerae anicteric. Oral cavity no lesions. Chest was clear to auscultation. HEART: Regular rate and rhythm. Abdomen is soft. There was external biliary catheter placed in the right upper quadrant area connected to dependent drainage. There was approximately 60 mL in the drainage bag. There was some leakage around the skin. There is no bloody stools or biliary flow noted. EXTREMITIES: No pedal edema. NEURO: She is very lethargic. LABS: Done today: WBC is 9.7, hemoglobin 8.4, platelets are normal. Sodium 140, potassium 2.8, chloride 104, BUN 74, creatinine 2.81. Liver enzymes as of yesterday showed normal ALT, AST, bilirubin and alkaline phosphatase. IMPRESSION: 1. Fungemia secondary to Yanelis albicans the patient on IV Diflucan. 2. Acute kidney injury. She was recently diagnosed with bilateral hydronephrosis for which she underwent ureteral stent placement bilaterally at [facility] a week ago. 3. History of obstructive jaundice for which she underwent a couple of ERCPs in the last several weeks, which were unsuccessful. Subsequently, she had percutaneous biliary drainage catheter placed which was subsequently exchanged with an internal external biliary catheter a week ago at [facility]. Currently, she has some leakage around the biliary catheter site, which is connected to dependent drainage bag with some improvement. At the time of ERCP she was noted to have stricture of the common hepatic duct and cytology was performed and on review of the records reported as negative. RECOMMENDATION: 1. Continue current medications. 2. Since she does not have any evidence of obstructive jaundice currently the external biliary catheter for dependent drainage for now. 3. If she continues to have persistent leakage around the biliary catheter site, we will discuss with Dr. Tovar on Monday if we can convert this into an internal drainage catheter. For now we will follow her closely during hospital stay. Thank you for this consultation. MMODL / IJN: [id number] /
[2018-05-05 17:00] LABS: Glucose,Whole Blood 151 mg/dL (75-99)
[2018-05-05] MEDS: VERAPAMIL 40 MG TAB PO SCH ×2 (17:48→21:15)
[2018-05-05] MEDS ORDERED: MORPHINE ORAL SOLN 10 MG/5 ML CUP PO PRN ×2 (19:27→19:28)
[2018-05-05] MEDS: LATANOPROST 0.005% OPHTH DROPS 2.5 ML BTL BOTH EYES SCH (20:16)
[2018-05-05 20:40] LABS: Glucose,Whole Blood 140 mg/dL (75-99)
--- NOTE | 2018-05-05 23:57 | PN ---
PROGRESS NOTE CHIEF COMPLAINT: Re-evaluation. HISTORY OF PRESENT ILLNESS: This is an 87-year-old female who was admitted to the hospital with acute renal failure, obtundation and suggestion of sepsis from fungemia. The patient does have Yanelis albicans in the blood. The patient has underlying history of biliary obstruction and has a biliary drain. The patient has intermittent bile drainage from the site of the catheter. This is not bloody and it is not purulent. The patient is on Zosyn. There is no evidence of any cholangitis. The patient does have a history of obstructive uropathy and has bilateral ureteral stents. She had fungemia, and patient on antifungal agents. The patient's renal function is somewhat degenerated partly because of, I think, the patient is dry. The patient appears dry. The patient will be given some IV fluids. She had developed acute pulmonary edema due to fluid overload. The patient is putting out adequate urine with some diuresis. Review of systems unobtainable from the patient. The patient's daughter, who states that the patient most of the time denies any particular changes, continues to be lethargic and obtunded. The patient does have good urine output. No fever. Her heart rate went up to 160. The patient does have a history of atrial fibrillation. She does have a sick sinus syndrome with a pacemaker as a backup. In view of this, patient earlier the nursing floor had called the A team and the patient had been given Lopressor. The patient as mentioned above is a NO CODE and at present fairly comfortable here. With a shortage of hospital beds, the patient could have beds up in the ICU and on telemetry. The patient is given Lopressor by me at the bedside IV with continuous monitoring of her heart rate, blood pressure and 5 mg of Lopressor given IV slowly over 15 minutes. The patient's blood pressure was in the 90s. The patient tolerated well. The patient's heart rate has slowed down into adequate range. The patient will be continued on verapamil. REVIEW OF SYSTEMS: Not obtainable from the patient as mentioned above. No fever, chills. PHYSICAL EXAMINATION: Elderly female at present in no distress. Vital signs revealed blood pressure 91/54, pulse 164, respirations 30. The patient is afebrile. HEENT: Normocephalic. NECK: Decreased range of motion. Eyes appear sunken. NECK: No JVD. LUNGS: Clear except for decreased effort at the base on the right side. CARDIAC: Distant heart sounds, S1, S2 with no gallops. Irregularly, irregular rhythm. ABDOMEN: Soft. Bowel sounds present. Mildly protuberant. Biliary drainage site has minimal bilious drainage noted on the dressing. The patient's sacral decubitus still about the same size, stage II, about 3/4 inch x 1/2 inch. No surrounding cellulitis. Extremities do reveal trace edema. Neurologically, opens her eyes to calling her name, but otherwise no further response. Does assist in turning left to right. LABORATORY ASSESSMENT: Electrolytes which reveal a potassium of 2.8, BUN up to 74, creatinine 2.81, CO2 content 24. Blood sugar was 81 and 220 a.c. lunch. ASSESSMENT: 1. Atrial fibrillation, rapid ventricular rate. 2. Fungemia. 3. Sepsis, improving. 4. Anemia. 5. Biliary obstruction with a drainage tube. 6. Rheumatoid arthritis. PLAN: The patient presents as clinically stable. Continue present medical regimen. Prognosis remains guarded. Condition discussed with the patient's daughter at bedside and also with Dr. Ballard at bedside. The patient's prognosis remains guarded. MMODL / IJN: [id number] /
[2018-05-06] MEDS: SODIUM CHLORIDE 0.9% 1,000 ML IV SCH ×2 (03:11)
[2018-05-06] MEDS ORDERED: VANCOMYCIN IV PER PHARMACY 1 EACH MISC MISCELLANE PRN (07:22)
[2018-05-06 07:28] LABS: Glucose,Whole Blood 52 mg/dL (75-99)
[2018-05-06] MEDS: INSULIN ASPART 100 UNIT/ML 1 ML 10 ML VIAL SQ SCH ×4 (07:28→20:44)
[2018-05-06] MEDS ORDERED: VANCOMYCIN IV PER PHARMACY 1 EACH MISC MISCELLANE ONE (07:30)
[2018-05-06 07:48] LABS: Glucose,Whole Blood 60 mg/dL (75-99)
[2018-05-06] MEDS: FUROSEMIDE 10 MG/ML 2 ML VIAL IV SCH (07:53)
[2018-05-06] MEDS: VERAPAMIL 40 MG TAB PO SCH ×3 (07:53→20:31)
[2018-05-06] MEDS: BRIMONIDINE TARTRATE 0.2% DROPS 5 ML BTL BOTH EYES SCH ×2 (07:53→20:37)
[2018-05-06] MEDS: guaiFENesin 600 MG TABLET.ER PO SCH ×2 (07:53→20:31)
[2018-05-06] MEDS: APIXABAN 2.5 MG TABLET PO SCH ×2 (07:53→20:30)
[2018-05-06] MEDS: TIMOLOL 0.5% OPHTH DROPS 5 ML BTL BOTH EYES SCH ×2 (07:54→20:49)
[2018-05-06 07:55] LABS: Glucose,Whole Blood 91 mg/dL (75-99)
[2018-05-06] MEDS ORDERED: VANCOMYCIN 1,000 MG in SODIUM CHLORIDE 0.9% 250 ML IVPB ONE (08:00)
[2018-05-06] MEDS: INSULIN DETEMIR 100 UNIT/ML 10 ML VIAL SQ SCH (08:18)
[2018-05-06 08:38] LABS: Calcium 7.5 mg/dL (8.4-10.2)
[2018-05-06 08:47] LABS: Potassium 2.8 mmol/L (3.5-5.1)
[2018-05-06 08:53] LABS: HCT 28.1 % (34.0-46.0); HGB 9.1 gm/dL (11.4-16.0); Hypochromasia Slight; MCH 29.4 pg (25.0-35.0); MCHC 32.4 g/dL (31.0-37.0); MCV 90.8 fL (80.0-100.0); Mean Platelet Volume 7.7; Platelet Count 361 k/uL (150-450); Poikilocytosis Slight; RBC 3.09 m/uL (3.80-5.40); RDW 14.7 % (11.5-15.5); WBC 16.2 k/uL (3.8-10.6)
[2018-05-06] MEDS ORDERED: FUROSEMIDE 10 MG/ML 4 ML VIAL IV SCH (09:00)
[2018-05-06 09:20] LABS: Basophilic Stippling Present; Lymphocytes # (M) 3.08 k/uL (1.0-4.8); Monocytes # (M) 0.81 k/uL (0-1.0); Neutrophils # (M) 12.31 k/uL (1.3-7.7); Neutrophils % (M) 76 %; Nucleated Red Blood Cells 0 /100 WBC (0-0); Polychromasia Present; Total Cells Counted 100
[2018-05-06] MEDS ORDERED: Potassium Replacement Protocol 1 EACH MISC MISCELLANE PRN (09:41)
[2018-05-06] MEDS: POTASSIUM CHLORIDE ER 20 MEQ TAB.ER PO SCH ×3 (10:57→12:47)
[2018-05-06] MEDS: 0.9% NACL WITH KCL 40 MEQ/L 1,000 ML IV SCH (11:02)
[2018-05-06 11:27] LABS: Glucose,Whole Blood 107 mg/dL (75-99)
[2018-05-06] MEDS: ANIDULAFUNGIN 100 MG in SODIUM CHLORIDE 0.9% 100 ML IVPB SCH (12:06)
[2018-05-06 17:07] LABS: Glucose,Whole Blood 277 mg/dL (75-99)
[2018-05-06 20:37] LABS: Glucose,Whole Blood 249 mg/dL (75-99)
[2018-05-06] MEDS: LATANOPROST 0.005% OPHTH DROPS 2.5 ML BTL BOTH EYES SCH (20:45)
[2018-05-06] MEDS ORDERED: INSULIN DETEMIR 100 UNIT/ML 10 ML VIAL SQ SCH (21:00)
--- NOTE | 2018-05-06 23:49 | PN ---
PROGRESS NOTE DATE OF SERVICE: 05/06/2018. ATTENDING PHYSICIAN: Dr. Nallely Luna. CHIEF COMPLAINT: Re-evaluation. HISTORY OF PRESENT ILLNESS: This is an 87-year-old female who was admitted to the hospital with obtundation. Further workup indicates patient has had fungemia and also blood cultures positive for gram-positive cocci in clusters, indicating Staph. Final ID is pending. The patient has bilateral ureteric catheters as well as biliary drain. The patient is somewhat more alert today. She did talk to me today. She has been afebrile. REVIEW OF SYSTEMS: Very limited available from the patient. Per nursing, no reported fever, chills, nausea, vomiting, diarrhea. The patient has a Nolasco catheter with adequate urine output. PHYSICAL EXAMINATION: GENERAL: Elderly female at present in no distress. VITAL SIGNS: Temperature 97.4, pulse 91, respirations 30, blood pressure 121/68. HEENT: Normocephalic. NECK: No JVD. CHEST: Clear to auscultation with decreased air flow at the right base. CARDIAC: Distant heart sounds, S1, S2 with no gallops. Regular rhythm. ABDOMEN: Soft. Bowel sounds present. Mildly protuberant. Possible ascites. EXTREMITIES: Reveal trace edema. The patient has a biliary drain with minimal oozing of bile. The patient has a sacral decubitus. Nolasco catheter in place. The patient has rheumatoid arthritic changes in the extremities. LAB ASSESSMENT: White count of 16.2, hemoglobin 9.1 with left shift present. Sodium 142, potassium is 2.8, chloride 109, CO2 content 23, BUN 63, creatinine 2.66. Blood sugar was 46. ASSESSMENT: 1. Sepsis with both yeast and dulce bacterial. 2. Obstructive jaundice with hepatic drain. 3. Bilateral renal obstructions with bilateral ureteric stents. 4. Urinary tract infection. 5. Acute kidney failure, multifactorial. 6. Acute congestive cardiac failure, improved. 7. Paroxysmal atrial fibrillation, rapid ventricular rate, resolved. 8. Anemia of chronic disease. 9. Metabolic encephalopathy. 10.Hypokalemia. 11.Hypoglycemia today. 12.Diabetes mellitus type 2. PLAN: Continue present medical regimen. Patient's condition remains guarded. Unfortunately, I missed the daughter by about 15 minutes today, will catch up with her tomorrow. Prognosis remains guarded. Will have to discuss with Urology and ID regarding possibly removing the ureteric catheters. Prognosis remains guarded. MMODL / IJN: [id number] /
[2018-05-07] MEDS: 0.9% NACL WITH KCL 40 MEQ/L 1,000 ML IV SCH ×2 (05:55→14:32)
[2018-05-07 07:06] LABS: Glucose,Whole Blood 254 mg/dL (75-99)
[2018-05-07] MEDS: INSULN ASP PRT/INSULIN ASPART 100 UNIT/ML 10 ML VIAL SQ SCH ×2 (08:18→17:18)
[2018-05-07] MEDS: INSULIN ASPART 100 UNIT/ML 1 ML 10 ML VIAL SQ SCH ×4 (08:18→22:01)
[2018-05-07] MEDS: guaiFENesin 600 MG TABLET.ER PO SCH ×2 (08:19→21:55)
[2018-05-07] MEDS: APIXABAN 2.5 MG TABLET PO SCH ×2 (08:19→21:55)
[2018-05-07] MEDS: TIMOLOL 0.5% OPHTH DROPS 5 ML BTL BOTH EYES SCH ×2 (08:20→21:52)
[2018-05-07] MEDS: VERAPAMIL 40 MG TAB PO SCH ×3 (08:20→21:46)
[2018-05-07] MEDS: BRIMONIDINE TARTRATE 0.2% DROPS 5 ML BTL BOTH EYES SCH ×2 (08:21→21:52)
[2018-05-07 08:37] LABS: Calcium 7.9 mg/dL (8.4-10.2); Potassium 4.5 mmol/L (3.5-5.1)
[2018-05-07 08:43] LABS: Vancomycin,Random 8.2 ug/mL
[2018-05-07] MEDS: ANIDULAFUNGIN 100 MG in SODIUM CHLORIDE 0.9% 100 ML IVPB SCH (09:05)
[2018-05-07] MEDS: FUROSEMIDE 10 MG/ML 2 ML VIAL IV SCH (09:05)
[2018-05-07 11:51] LABS: Glucose,Whole Blood 284 mg/dL (75-99)
[2018-05-07] MEDS ORDERED: VANCOMYCIN IV PER PHARMACY 1 EACH MISC MISCELLANE PRN (12:04)
[2018-05-07] MEDS ORDERED: VANCOMYCIN 1,000 MG in SODIUM CHLORIDE 0.9% 250 ML IVPB ONE (13:00)
[2018-05-07 17:15] LABS: Glucose,Whole Blood 231 mg/dL (75-99)
--- NOTE | 2018-05-07 19:25 | P.PN ---
Subjective Progress Note Date: 05/07/18 87-year-old female presents to the emergency center home setting where she is cared for by her daughter and son-in-law. She's had a very significant recent medical history in that she developed obstructive jaundice. ERCP was attempted at this facility because it could not be performed she was transferred to [facility] for further intervention. Despite ultrasound -guided ERCP, the probe could not be passed. and consequently because she was ill and percutaneous biliary drain was placed to relieve her obstructive jaundice. Eventually there was arepeat procedure and brushings from the biliary duct were performed and dictated to this point reveals no evidence of underlying malignancy. The patient was treated during her hospital stays and was discharged home on routine medications but the family relate on no antibiotics. Presents to Hospital increasing weakness large amount of drainage was coming around the percutaneous cholecystostomy tube. With evidence of sepsis and fungemia the infectious diseases consultation was requested. The available review reveals that the fungemia is new she had yanelis urinary in the past. The patient's status did decline and there was a transient time where she was under comfort care protocol, the family however did not desire this to continue and she is now back to full care but DO NOT RESUSCITATE, which is appropriate. The patient at this time comfortable she's having some difficulty expectorating her secretions other than this she is unable to eat the day today, she is drinking liquids without great difficulty. Comfortable this afternoon, with some tachypnea.Not responding to observer. Patient's son is present in relate that he was able to feed her lunch without great difficulties. She however does not interact with the observer at all. Objective - Vital Signs Vital signs: Vital Signs Temp 97.6 F 05/07/18 07:06 Pulse 90 05/07/18 07:06 Resp 32 H 05/07/18 07:06 BP 138/64 05/07/18 07:06 Pulse Ox 98 05/07/18 07:06 Intake & Output 05/07/18 05/07/18 05/08/18 06:59 18:59 06:59 Intake Total 0 600 Output Total 500 900 Balance -500 -300 Weight 51.483 kg Intake: Oral 0 600 Output: Urine 500 900 Other: Voiding Method Indwelling Catheter Indwelling Catheter # Voids 1 # Bowel Movements 1 2 - Exam 87-year-old female who is mostly comfortable that has some difficulty expectorating thick secretion. HEENT: Anicteric conjunctiva are pink andmildly dry nasal mucosa grossly intact without significant lesions, there is no thrush.oral cavity is dry Neck: The neck is supple without significant lymphadenopathy or thyromegaly. Lungs: Good bilateral air entry without significant crackles or wheezing. There is no significant bronchial sounds. There is no egophony or dullness. Heart: Regular rate and rhythm with an audible S1-S2, no S3 no S4. There is no significant murmur click or rub, PMI was nondisplaced. Abdomen: Positive bowel sounds soft and nontender without palpable masses or organomegaly. the abdomen is nonrigid, the percutaneous cholecystostomy tube is with some bilious drainage into the bag and scant drainage around the tube which apparently is considerably improved from prior. Extremities: the upper and lower extremities show evidence of the significant joint destruction from her long-term history of rheumatoid arthritis, no significant edema at this time Neuro: the patient is awake eyes open, does gaze to the observer but does not attempt a form of communication, and does not respond to requests. - Labs CBC & Chem 7: 05/06/18 07:26 05/07/18 07:07 Labs: Abnormal Lab Results - Last 24 Hours (Table) 05/06/18 05/07/18 05/07/18 Range/Units 20:34 07:02 07:07 Chloride 112 H (98-107) mmol/L Carbon Dioxide 19 L (22-30) mmol/L BUN 61 H (7-17) mg/dL Creatinine 2.30 H (0.52-1.04) mg/dL Glucose 248 H (74-99) mg/dL POC Glucose (mg/dL) 249 H 254 H (75-99) mg/dL Calcium 7.9 L (8.4-10.2) mg/dL 05/07/18 05/07/18 Range/Units 11:42 17:09 Chloride (98-107) mmol/L Carbon Dioxide (22-30) mmol/L BUN (7-17) mg/dL Creatinine (0.52-1.04) mg/dL Glucose (74-99) mg/dL POC Glucose (mg/dL) 284 H 231 H (75-99) mg/dL Calcium (8.4-10.2) mg/dL Microbiology - Last 24 Hours (Table) 05/03/18 13:14 Blood Culture - Preliminary Blood No Growth after 96 hours 05/03/18 13:50 Blood Culture Gram Stain - Preliminary Blood Laboratory Results WBC 16.2 k/uL (3.8-10.6) H 05/06/18 07:26 RBC 3.09 m/uL (3.80-5.40) L 05/06/18 07:26 Hgb 9.1 gm/dL (11.4-16.0) L 05/06/18 07:26 Hct 28.1 % (34.0-46.0) L 05/06/18 07:26 MCV 90.8 fL (80.0-100.0) 05/06/18 07:26 MCH 29.4 pg (25.0-35.0) 05/06/18 07:26 MCHC 32.4 g/dL (31.0-37.0) 05/06/18 07:26 RDW 14.7 % (11.5-15.5) 05/06/18 07:26 Plt Count 361 k/uL (150-450) 05/06/18 07:26 Neutrophils % 84 % 05/04/18 07:53 Neutrophils % (Manual) 76 % 05/06/18 07:26 Lymphocytes % 10 % 05/04/18 07:53 Lymphocytes % (Manual) 19 % 05/06/18 07:26 Monocytes % 3 % 05/04/18 07:53 Monocytes % (Manual) 5 % 05/06/18 07:26 Eosinophils % 0 % 05/04/18 07:53 Basophils % 1 % 05/04/18 07:53 Neutrophils # 8.1 k/uL (1.3-7.7) H 05/04/18 07:53 Neutrophils # (Manual) 12.31 k/uL (1.3-7.7) H 05/06/18 07:26 Lymphocytes # 0.9 k/uL (1.0-4.8) L 05/04/18 07:53 Lymphocytes # (Manual) 3.08 k/uL (1.0-4.8) 05/06/18 07:26 Monocytes # 0.3 k/uL (0-1.0) 05/04/18 07:53 Monocytes # (Manual) 0.81 k/uL (0-1.0) 05/06/18 07:26 Eosinophils # 0.0 k/uL (0-0.7) 05/04/18 07:53 Basophils # 0.1 k/uL (0-0.2) 05/04/18 07:53 Nucleated RBCs 0 /100 WBC (0-0) 05/06/18 07:26 Polychromasia Present 05/06/18 07:26 Hypochromasia Slight 05/06/18 07:26 Poikilocytosis Slight 05/06/18 07:26 Basophilic Stippling Present 05/06/18 07:26 PT 10.4 sec (9.0-12.0) 04/30/18 03:50 INR 1.1 (<1.2) 04/30/18 03:50 APTT 26.8 sec (22.0-30.0) 04/30/18 03:50 Sodium 142 mmol/L (137-145) 05/07/18 07:07 Potassium 4.5 mmol/L (3.5-5.1) 05/07/18 07:07 Chloride 112 mmol/L (98-107) H 05/07/18 07:07 Carbon Dioxide 19 mmol/L (22-30) L 05/07/18 07:07 Anion Gap 11 mmol/L 05/07/18 07:07 BUN 61 mg/dL (7-17) H 05/07/18 07:07 Creatinine 2.30 mg/dL (0.52-1.04) H 05/07/18 07:07 Est GFR (CKD-EPI)AfAm 21 (>60 ml/min/1.73 sqM) 05/07/18 07:07 Est GFR (CKD-EPI)NonAf 18 (>60 ml/min/1.73 sqM) 05/07/18 07:07 Glucose 248 mg/dL (74-99) H 05/07/18 07:07 POC Glucose (mg/dL) 231 mg/dL (75-99) H 05/07/18 17:09 POC Glu Central Office Frame Wirer ID Naomi Lin 05/07/18 17:[address] Glu mg/dL 186 04/30/18 03:50 Hemoglobin A1c 8.1 % (4.0-6.0) H 04/30/18 03:50 Plasma Lactic Acid Wily 1.9 mmol/L (0.7-2.0) 04/30/18 03:50 Calcium 7.9 mg/dL (8.4-10.2) L 05/07/18 07:07 Total Bilirubin 0.6 mg/dL (0.2-1.3) 05/04/18 07:53 AST 13 U/L (14-36) L 05/04/18 07:53 ALT 24 U/L (9-52) 05/04/18 07:53 Alkaline Phosphatase 86 U/L (38-126) 05/04/18 07:53 Ammonia 16 umol/L (<30) 04/30/18 03:50 Total Creatine Kinase <20 U/L (30-135) L 04/30/18 03:50 CK-MB (CK-2) 0.8 ng/mL (0.0-2.4) 04/30/18 03:50 CK-MB (CK-2) Rel Index 04/30/18 03:50 Troponin I <0.012 ng/mL (0.000-0.034) 04/30/18 03:50 Total Protein 4.5 g/dL (6.3-8.2) L 05/04/18 07:53 Albumin 2.0 g/dL (3.5-5.0) L 05/04/18 07:53 Urine Color Red 04/30/18 11:00 Urine Appearance Turbid (Clear) H 04/30/18 11:00 Urine pH 5.5 (5.0-8.0) 04/30/18 11:00 Ur Specific [place] 1.015 (1.001-1.035) 04/30/18 11:00 Urine Protein 2+ (Negative) H 04/30/18 11:00 Urine Glucose (UA) 1+ (Negative) H 04/30/18 11:00 Urine Ketones Negative (Negative) 04/30/18 11:00 Urine Blood Large (Negative) H 04/30/18 11:00 Urine Nitrite Negative (Negative) 04/30/18 11:00 Urine Bilirubin Negative (Negative) 04/30/18 11:00 Urine Urobilinogen <2.0 mg/dL (<2.0) 04/30/18 11:00 Ur Leukocyte Esterase Large (Negative) H 04/30/18 11:00 Urine RBC >182 /hpf (0-5) H 04/30/18 11:00 Urine WBC >182 /hpf (0-5) H 04/30/18 11:00 Urine WBC Clumps Many /hpf (None) H 04/30/18 11:00 Urine Yeast (Budding) Many /hpf (None) H 04/30/18 11:00 Urine Osmolality 362 mosm/kg (50-1400) 04/30/18 11:00 Ur Random Sodium 24 mmol/L 04/30/18 11:00 Random Vancomycin 8.2 ug/mL 05/07/18 07:07 Microbiology 05/03/18 13:14 Blood Blood Culture - Preliminary No Growth after 96 hours 05/03/18 13:50 Blood Blood Culture Gram Stain - Preliminary 05/03/18 13:50 Blood Blood Culture - Final 04/30/18 03:50 Blood Blood Culture Gram Stain - Final 04/30/18 03:50 Blood Blood Culture - Final Yanelis albicans 04/30/18 11:00 Urine,Catheterized Urine Culture - Final Yanelis albicans 04/30/18 03:50 Blood Blood Culture - Final Assessment and Plan (1) Fungemia Narrative/Plan: 87 year old woman with recent hospitalizations regarding the obstruction of her biliary tract as well as the bilateral hydronephrosis. When she is at the outside hospital she did have percutaneous cholecystostomy tube placed as well as bilateral ureteral stents placed. She now presents feeling considerably weaker and the family was very concerned. She has not been found evidence of fungemia, and it was candidate her urine. Although with her current level illness this is more likely that the infection is coming from the biliary tract , with the instrumentation to the ureters is also of some concern. Given that she has been at an outside facility will be concerned that fluconazole may not be effective and Eraxis since been requested she is also receiving antibiotic therapy pending further culture results regarding the potential for cholangitis , fortunately at this time her bilirubin is normal at 0.8 but she is also adequately drained at this time. She's had acute and chronic renal failure and is doing slightly better but appears to be a bit dehydrated today and we've asked for a fluid bolus and some ongoing IV hydration especially since her oral intake is not ideal at this time. Follow blood cultures been requested Discussed with the family there is a high likelihood that the temperature discharge she could need intravenous antifungal that they could do in the home setting. Once her fungemia has cleared we could arrange for IV access. She has been seen by urology no plans of any further intervention at this time.if however the fungemia does not rapidly come under control she may require exchange of her ureteral stents. Her leukocytosis appears redecorated at the current fungemia and underlying sepsis, 05/04/2018 leukocytosis has improved and no fever is noted today. Little change of mental status. Await follow up blood culture to determine if fungemia has cleared. Continue eraxis for now will be able to consider fluconazole if only candidia albicans is found. continue the zosyn for now while final cultures are awaited. 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 With this urology to further evaluate the bilateral ureteral stents. Given her ongoing fungemia there is concern that the foreign body, that is the stents could be causing the ongoing issue. She does not have an infusion catheter. As noted the culture also had some gram-positive cocci vancomycin was started and his Zosyn was discontinued. Follow blood cultures are requested, may not have any more permanent IV access placed into her fungemia resolves. Current Visit: Yes Status: Acute Code(s): B49 - UNSPECIFIED MYCOSIS SNOMED Code(s): 457728256 (2) Hydronephrosis Current Visit: No Status: Acute Code(s): N13.30 - UNSPECIFIED HYDRONEPHROSIS SNOMED Code(s): 45729871 (3) Obstructive jaundice Current Visit: Yes Status: Acute Code(s): K83.8 - OTHER SPECIFIED DISEASES OF BILIARY TRACT SNOMED Code(s): 97229976
[2018-05-07 20:35] LABS: Glucose,Whole Blood 244 mg/dL (75-99)
[2018-05-07] MEDS ORDERED: FUROSEMIDE 10 MG/ML 10 ML VIAL IV STA (21:26)
[2018-05-07] MEDS ORDERED: VERAPAMIL 80 MG TAB PO STA (21:27)
[2018-05-07] MEDS ORDERED: MORPHINE SULFATE 2 MG/ML SYRINGE IVP PRN (21:48)
[2018-05-07] MEDS: LATANOPROST 0.005% OPHTH DROPS 2.5 ML BTL BOTH EYES SCH (21:52)
[2018-05-08 00:11] LABS: Glucose,Whole Blood 193 mg/dL (75-99)
--- NOTE | 2018-05-08 00:17 | XR ---
EXAMINATION TYPE: XR chest 1V portable DATE OF EXAM: 05/08/2018 COMPARISON: 05/02/2018 HISTORY: Difficulty breathing TECHNIQUE: Single frontal view of the chest is obtained. FINDINGS: Heart is enlarged. There is pulmonary edema and vascular congestion. There are infiltrates in the lower lung tristan. There is blunting of costophrenic angles. There are chest leads. There is left axillary pacemaker with the lead tip over the right ventricle. IMPRESSION: Congestive heart failure with pleural effusions. Right lower lobe pneumonia is possible. Infiltrate in right lower lobe is increased compared to last exam.
[2018-05-08 00:25] LABS: ABG HCO3 23 mmol/L (21-25); ABG Oxygen Saturation 98.1 % (94-97); ABG PCO2 45 mmHg (35-45); ABG PH 7.32 (7.35-7.45); ABG PO2 100 mmHg (83-108); ABG TCO2 25 mmol/L (19-24)
--- NOTE | 2018-05-08 00:38 | PN ---
PROGRESS NOTE DATE OF SERVICE: 05/07/2018. ATTENDING PHYSICIAN: Dr. Nallely Luna. CHIEF COMPLAINT: Re-evaluation. HISTORY OF PRESENT ILLNESS: This elderly female, 87-year-old, was admitted to the hospital. She has an underlying history of underlying fungemia and bacteremia. The patient has a biliary drainage tube. She also has bilateral ureteric catheters. The patient also had fungus in the urine. The patient has bilateral ureteric stents for hydronephrosis. In view of continued fungemia, it would be impractical to remove both ureteric catheters as the patient's renal function is also not improving significantly. The patient has been getting adequate hydration. She is getting adequate urine output. The patient's biliary drain cultures are pending. The patient has been afebrile. The patient was seen twice today, this morning she appeared fairly good but this evening she is somewhat tachypneic. IV fluids were cut down to keep the vein open. The patient, at the time of this dictation, has become more tachypneic. Lasix was given. Patient was more tachycardiac. Morphine was given for breathing. The patient had evaluation earlier, was somewhat more alert and had in spoke 3 words today. REVIEW OF SYSTEMS: Very difficult to obtain much from the patient. No reported nausea or vomiting until this evening, she had episode of vomitus. Appetite has been fair. Her blood sugars are fluctuating. No reported fevers or chills. Urine output has been adequate. PHYSICAL EXAMINATION: An 87-year-old female, at present in no distress at the time of evaluation this morning. This evening the patient is somewhat tachypneic. Vital signs reveal temperature 97.4, pulse 91, respirations 30, blood pressure 121/68, pulse ox 99% on 2 L. HEENT: Normocephalic. NECK: No JVD. CHEST: Decreased air flow at the right base. CARDIAC: Distant heart sounds, S1 and S2 with no gallops. Systolic murmur 2/6 left sternal border. ABDOMEN: Mildly protuberant. Bowel sounds active. EXTREMITIES: Reveal no edema, no tenderness. NEUROLOGIC: Obtunded, very few words. Does assist in turning, though. SKIN: Stage II decubitus in the sacral area. The patient's drainage site still has significant drainage. LAB ASSESSMENT: Electrolytes reveal sodium 142, potassium 4.5, chloride 112, CO2 of 19, anion gap 11, BUN 61, creatinine 2.3, glucose 248. ASSESSMENT: 1. Fungemia. 2. Coagulase-negative Staph, probably skin contaminant. 3. Acute renal failure. 4. Paroxysmal atrial fibrillation. 5. Pacemaker status. 6. Debility. 7. Rheumatoid arthritis. 8. Anemia of chronic disease. PLAN: Continue present medical regimen. Patient's condition is guarded. Condition discussed with the patient's son this evening. Prognosis remains guarded. This evening, patient's condition worsened with some tachypnea. The patient was given Lasix. Prognosis remains guarded. MMODL / IJN: [id number] /
[2018-05-08 02:15] VITALS: TEMP 96.9
[2018-05-08 02:17] VITALS: BP 102/59; PULSE 90; RESP 40
[2018-05-08] MEDS: 0.9% NACL WITH KCL 40 MEQ/L 1,000 ML IV SCH (02:41)
[2018-05-08 06:22] LABS: Albumin 2.3 g/dL (3.5-5.0); Calcium 8.5 mg/dL (8.4-10.2); Total Bilirubin 0.6 mg/dL (0.2-1.3); Total Protein 5.3 g/dL (6.3-8.2)
[2018-05-08 06:27] LABS: Vancomycin,Random 12.2 ug/mL
[2018-05-08 06:28] LABS: Potassium 6.9 mmol/L (3.5-5.1)
[2018-05-08] MEDS: INSULIN ASPART 100 UNIT/ML 1 ML 10 ML VIAL SQ SCH (08:43)
[2018-05-08] MEDS: INSULN ASP PRT/INSULIN ASPART 100 UNIT/ML 10 ML VIAL SQ SCH (08:44)
--- NOTE | 2018-05-08 08:53 | CDI ---
Last Revision, September 2017 Documentation Clarification Form Date: 05/08/2018 8:43:06 AM From: Naomi LaTAMMY, CCDS Admit Date: 04/30/2018 6:29:00 AM Patient Name: Bita Mayfield Visit Number: [id number] Discharge Date: ATTENTION: The Clinical Documentation Specialists (CDI) and [facility] Coding Staff appreciate your assistance in clarifying documentation. Please respond to the clarification below the line at the bottom and electronically sign. The CDI & [facility] Coding staff will review the response and follow-up if needed. Please note: Queries are made part of the Legal Health Record. If you have any questions, please contact the author of this message via ITS. Terence Khan MD: Per the Infectious Disease consult: "She's had acute and chronic renal failure and is doing slightly better but appears to be a bit dehydrated today and we've asked for a fluid bolus and some ongoing IV hydration especially since her oral intake is not ideal at this time." History/Risk Factors: DM II, RA, Common bile duct blockage, kidney stones. Patients baseline BUN/CR/GFR: Unknown or not documented. Clinical Indicators: Admit with fatigue, generalized weakness & elevated blood sugar, recent hospitalization at [facility] with biliary obstruction. Admission BUN 92; Cr 2.80; GFR 15. Currently: BUN 65; Cr 2.80, GFR 15 Treatment: IV fluid bolus, IV Na Bicarb, IV Ampicillin, IV Calcium Gluconate, Insulin sc. In order to capture the severity of condition, please clarify if the condition signifies: Acute renal failure, Please specify etiology (if known): o Cortical Necrosis o Medullary Necrosis o Tubular Necrosis Acute on chronic renal failure CKD Stage 1 GFR >90 CKD Stage 2 GFR 60-89 CKD Stage 3 GFR 30-59 CKD Stage 4 GFR 15-29 CKD Stage 5 GFR <15 Other, please specify Unable to determine Please continue to document in your progress notes and discharge summary in order to capture severity of illness and risk of mortality. Include clinical findings that support your diagnosis. Patient with acute on chronic renal failure had Cr of 0.87 GFR 60 on 04/10/2018 on admission had Cr of 2.8 indicating acute on chronic renal failure from acute tubular necrosis. Present on admission. CKD Stage 2 with GFR 60. MTDD
--- NOTE | 2018-05-09 16:24 | CDI ---
Last Revision, September 2017 Documentation Clarification Form Date: 05/09/18 From: Ananya Amado Phone: If you have a question regarding this query, please contact Mariel Guillory at [phone] between 8am and 5pm. Admit Date: 04/30/2018 6:29:00 AM Patient Name: Bita Mayfield Visit Number: [id number] Discharge Date: 05/08/18 ATTENTION: The Clinical Documentation Specialists (CDI) and [facility] Coding Staff appreciate your assistance in clarifying documentation. Please respond to the clarification below the line at the bottom and electronically sign. The CDI & [facility] Coding staff will review the response and follow-up if needed. Please note: Queries are made part of the Legal Health Record. If you have any questions, please contact the author of this message via ITS. Dr. Nigel Lnua MD Sepsis with fungemia with sarah albicans in the blood is documented in your progress notes, Dr. Lemons consult note and progress notes in Dr. Valladares'/ progress note. History/Risk Factors: admitted to rule out infection. Patient had a UTI with sarah & was recently discharged from another hospital d/t obstructive jaundice & also had bilateral hydronephrosis obstruction & had ureteral stents placed. The patient also has DM, IFRAH, CHF acute exacerbation and obstructive jaundice. Clinical Indicators: tachycardia, leukocytosis WBC/Left Shift 21.6/17.9 Lactic acid: 1.9 Blood cultures: Sarah albicans Urine cultures: Sarah albicans Urinalysis: Turbid urine, 2+ protein, glucose 1+, blood large, leukocyte esterase large, RBC >182, WBC >182, WBC clumps many, yeast many. Vitals signs on admission: T. 98.8, P. 89, R. 20, BP 104/53 Fluid Bolus: Sodium Chloride 1000 mls @999 mls/hr Antifungals: IV Anidulafungin, IV fluconazole Please document the condition that these clinical indicators signify: UTI With Sepsis If due to catheter, device or implant, please document Identify location of infection (if known) Bladder, Kidney, Urethra __ Other, please specify Unable to determine MTDD
== END 2018-05-08 09:06 | disposition expired | DRG 871 ==
LOC: EC 03:35 → 4MS4W 06:29
PROVIDERS: ADMIT Internal Medicine; ATTEND Internal Medicine
DX: B37.7 Candidal sepsis (principal); G93.41 Metabolic encephalopathy; J96.00 Acute respiratory failure, unspecified whether with hypoxia or hypercapnia; K83.1 Obstruction of bile duct; I50.31 Acute diastolic (congestive) heart failure; N17.0 Acute kidney failure with tubular necrosis; E87.1 Hypo-osmolality and hyponatremia; E87.2 Acidosis; I13.0 Hypertensive heart and chronic kidney disease with heart failure and stage 1 through stage 4 chronic kidney disease, or unspecified chronic kidney disease; K31.5 Obstruction of duodenum; N13.30 Unspecified hydronephrosis; K80.51 Calculus of bile duct without cholangitis or cholecystitis with obstruction; D63.8 Anemia in other chronic diseases classified elsewhere; N18.2 Chronic kidney disease, stage 2 (mild); E11.22 Type 2 diabetes mellitus with diabetic chronic kidney disease; E11.649 Type 2 diabetes mellitus with hypoglycemia without coma; E11.65 Type 2 diabetes mellitus with hyperglycemia; E86.0 Dehydration; E87.6 Hypokalemia; E87.5 Hyperkalemia; I48.0 Paroxysmal atrial fibrillation; L89.152 Pressure ulcer of sacral region, stage 2; M06.9 Rheumatoid arthritis, unspecified; M81.0 Age-related osteoporosis without current pathological fracture; K80.20 Calculus of gallbladder without cholecystitis without obstruction; R19.00 Intra-abdominal and pelvic swelling, mass and lump, unspecified site; R32 Unspecified urinary incontinence; R01.1 Cardiac murmur, unspecified; Z66 Do not resuscitate; Z79.01 Long term (current) use of anticoagulants; Z79.4 Long term (current) use of insulin; Z79.899 Other long term (current) drug therapy; Z96.642 Presence of left artificial hip joint; Z95.0 Presence of cardiac pacemaker; Z87.442 Personal history of urinary calculi; Z83.3 Family history of diabetes mellitus
CPT/HCPCS: 36415; 36600; 71045; 76770; 80048; 80053; 80202; 81001; 82140; 82550; 82553; 82805; 83036; 83605; 83880; 83935; 84300; 84484; 85025; 85027; 85610; 85730; 87040; 87070; 87077; 87086; 87186; 87205; 93005; 94760; 96361; 96365; 96375; 99285